=== PATIENT | male | born 1935 | race Caucasian/White ===

== ENCOUNTER → 2016-12-27 | Outpatient (CLI) | payer BC ==
[~2016-12-27] MED LIST: ALBINS INH; ALBU0.08 INH; ASPCH81 PO; ASPI81TA28 PO; BISO5TAB3 PO; CLOP1TAB15 PO; FLUT110A INH; IMDSR60 PO; ISOS120T5 PO; ISOS40TA5 PO; LEVO50TA6 PO; LISI-729 PO; LORA-741 PO; MRLP17X PO; NADO20TA15 PO; NTRGSL/4 UT; ROSU40TA PO; SENN8.6T7 PO; TAMS0.4C38 PO; ULT50X PO; [UNRECOGNIZED DRUG - CODE] PO
[2016-12-27 12:50] LABS: HEMATOCRIT 36.8 % (42-52); MEAN CELL VOLUME 93.2 fL (80-100); MEAN CORPUSCULAR HEMOGLOBIN 31.6 pg (25-34); MEAN PLATELET VOLUME 11.6 fL (7.4-10.4); PLATELET COUNT 181 K/uL (130-400); RED BLOOD COUNT 3.95 M/uL (4.7-6.1); WHITE BLOOD COUNT 7.37 K/uL (4.8-10.8)
[2016-12-27 12:59] LABS: ALT/SGPT 17 U/L (12-78); BLOOD UREA NITROGEN 21 mg/dl (7-18); BUN/CREATININE RATIO 15.1 (10-20); CALCIUM 8.9 mg/dl (8.5-10.1); CARBON DIOXIDE 26 mmol/L (21-32); CHLORIDE 106 mmol/L (98-107); GLUCOSE 100 mg/dl (70-99); POTASSIUM 4.1 mmol/L (3.5-5.1); SODIUM 141 mmol/L (136-145)
[2016-12-27 13:02] LABS: ALB/GLOB RATIO 0.8 (0.9-2); ALKALINE PHOSPHATASE 66 U/L (45-117); AST/SGOT 21 U/L (15-37)
== END | disposition home or self-care (01) ==
LOC: C.LABBFT 11:00
PROVIDERS: ATTEND Internal Medicine Cardiovascular Disease
DX: E78.5 Hyperlipidemia, unspecified (principal); I10 Essential (primary) hypertension; I25.10 Atherosclerotic heart disease of native coronary artery without angina pectoris; R00.1 Bradycardia, unspecified; N28.9 Disorder of kidney and ureter, unspecified

== ENCOUNTER → 2017-03-01 | Outpatient (CLI) | payer BC ==
[~2017-03-01] MED LIST changes: +FLVHFA110 INH; +ISOS60TA25 PO; +MRLP527 PO; +REGADENOSON 0.4 MG/5 ML SYR ONE; +SENN-65 PO; +ULT50 PO; +ZNTT/150 PO
--- NOTE | 2017-03-02 02:31 | MYOCARDIAL PERFUSION SCAN ---
ORDERING PHYSICIAN: Dr. Jiménez. PCP: Dr. Giordano. TIME: 19:26 p.m. PROCEDURES: 1. Myocardial perfusion study performed in multiple views/images. 2. Lexiscan pharmacologic stress ECG. INDICATIONS: 1. Chest pain. 2. CAD. 3. Prior infarct. 4. CABG. CONSENT: Informed written consent was obtained. PROCEDURAL DETAILS: For the stress portion of the study, Lexiscan 0.4 mg was intravenously administered over 10-15 seconds followed by saline flush. This was followed by 30.3 mCi of technetium-99m Cardiolite injected intravenously at 9:40 a.m. on 03/01/2017. Thirty minutes following the injection, imaging of the heart was performed in multiple projections. For the rest portion of the study 10.8 mCi of technetium-99m Cardiolite was injected intravenously at 7:30 a.m. on the same day. One hour following the injection, imaging of the heart was performed in the same projections. STRESS ECG: Baseline ECG demonstrated sinus bradycardia at 48 beats per minute. Inferolateral T-wave inversion. Incomplete right bundle-branch block. Possible lateral infarct. Inferior infarct. Lexiscan ECG demonstrated no significant ST changes. No significant pause. No arrhythmia. There was pseudonormalization of the inferolateral T-wave inversions. There was Lexiscan induced mild chest pain. Maximum heart rate was 73 beats per minute representing 51% maximum predicted heart rate. Resting blood pressure was 154/77 mmHg. This was also the maximum blood pressure. FINDINGS: Rotating raw imaging demonstrated no significant lung uptake. There was mild motion artifact in both the rest and stress imaging. Heart size appeared normal. Myocardial perfusion demonstrated a small area of mildly reduced uptake at the apex which was fixed without significant reversibility. There was a moderate sized area of severely reduced uptake involving the inferior and inferolateral suarez from base to distal left ventricle which was also fixed in post-stress and rest imaging. There was a small area of severely reduced uptake in the basal septal wall which was also fixed. There was no significant reversible defect. Ejection fraction was calculated at 66%. Wall motion demonstrated akinesis of the inferolateral wall otherwise, wall motion appeared normal. There was no significant transient ischemic dilation. IMPRESSION: 1. Negative myocardial perfusion study for significant ischemia. 2. Moderate sized inferior and inferolateral infarct with possible small apical infarct and small basal septal infarct. 3. Calculated ejection fraction was 66%, suggesting normal left ventricular systolic function. 4. Wall motion was notable for akinesis of the inferolateral wall. 5. Mild chest pain reported. 6. No arrhythmia. 7. Nondiagnostic Lexiscan ECG.
== END | disposition home or self-care (01) ==
LOC: C.NUCL 06:42
PROVIDERS: ATTEND Internal Medicine Cardiovascular Disease
DX: I25.10 Atherosclerotic heart disease of native coronary artery without angina pectoris (principal); E78.5 Hyperlipidemia, unspecified; I10 Essential (primary) hypertension; R07.9 Chest pain, unspecified

== ENCOUNTER → 2017-03-07 | Outpatient (CLI) | payer BC ==
[~2017-03-07] MED LIST changes: -REGADENOSON 0.4 MG/5 ML SYR ONE
[2017-03-07 17:35] LABS: HEMATOCRIT 40.5 % (42-52); MEAN CELL VOLUME 95.5 fL (80-100); MEAN CORPUSCULAR HEMOGLOBIN 31.6 pg (25-34); MEAN CORPUSCULAR HGB CONC 33.1 g/dl (32-36); MEAN PLATELET VOLUME 11.8 fL (7.4-10.4); PLATELET COUNT 185 K/uL (130-400); RED BLOOD COUNT 4.24 M/uL (4.7-6.1); WHITE BLOOD COUNT 6.07 K/uL (4.8-10.8)
[2017-03-07 17:52] LABS: ALT/SGPT 22 U/L (12-78); AST/SGOT 21 U/L (15-37); BLOOD UREA NITROGEN 21 mg/dl (7-18); BUN/CREATININE RATIO 13.9 (10-20); CALCIUM 8.6 mg/dl (8.5-10.1); CARBON DIOXIDE 28 mmol/L (21-32); CHLORIDE 108 mmol/L (98-107); CHOLESTEROL 152 mg/dl (0-200); GLUCOSE 126 mg/dl (70-99); POTASSIUM 4.7 mmol/L (3.5-5.1); SODIUM 140 mmol/L (136-145)
[2017-03-07 18:04] LABS: ALB/GLOB RATIO 0.8 (0.9-2); ALKALINE PHOSPHATASE 69 U/L (45-117); HDL CHOLESTEROL 38 mg/dl; TRIGLYCERIDES 436 mg/dl (0-150)
[2017-03-08 06:16] LABS: ESTIMATED AVERAGE GLUCOSE 140 mg/dl; HA1C FLAG Normal (Normal)
== END | disposition home or self-care (01) ==
LOC: C.LABBFT 14:36
PROVIDERS: ATTEND Internal Medicine
DX: R73.01 Impaired fasting glucose (principal); E03.9 Hypothyroidism, unspecified; I25.810 Atherosclerosis of coronary artery bypass graft(s) without angina pectoris

== ENCOUNTER → 2017-04-05 | Outpatient (CLI) | payer BC ==
[2017-04-05 12:12] LABS: BASO % 0.5 %; BASO ABS # 0.03 K/uL (0-0.2); COMPLETE YES; EOS % 4.1 %; HEMATOCRIT 41.8 % (42-52); IG% 0.2 %; LYMPH % 32.1 %; LYMPH ABS # 1.86 K/uL (1.2-3.4); MEAN CELL VOLUME 94.6 fL (80-100); MEAN CORPUSCULAR HEMOGLOBIN 30.8 pg (25-34); MEAN CORPUSCULAR HGB CONC 32.5 g/dl (32-36); MEAN PLATELET VOLUME 11.5 fL (7.4-10.4); MONO % 13.5 %; NEUT % 49.6 %; PLATELET COUNT 198 K/uL (130-400); RED BLOOD COUNT 4.42 M/uL (4.7-6.1); WHITE BLOOD COUNT 5.79 K/uL (4.8-10.8)
[2017-04-05 12:20] LABS: BLOOD UREA NITROGEN 22 mg/dl (7-18); BUN/CREATININE RATIO 12.4 (10-20); CARBON DIOXIDE 28 mmol/L (21-32); CHLORIDE 106 mmol/L (98-107); GLUCOSE 114 mg/dl (70-99); POTASSIUM 4.8 mmol/L (3.5-5.1); SODIUM 139 mmol/L (136-145)
[2017-04-05 12:24] LABS: PROSTATE SPECIFIC ANTIGEN 0.726 ng/ml (0.000-4.000)
[2017-04-05 12:27] LABS: CALCIUM 9.3 mg/dl (8.5-10.1)
--- NOTE | 2017-04-11 13:59 | CODING QUERY MEDICAL NECESSITY ---
CQSUPPORTING DIAGNOSIS NEEDED A supporting diagnosis is required for the test/procedure performed on this patient in order for us to be reimbursed by the patient's insurance. Please provide a supporting diagnosis for the following test/procedure listed below next to the test name along with your signature. *If there is no additional diagnosis for this patient that would support the following test/procedure please document that below next to the test/procedure. Test(s)/Procedure(s) that require a supporting diagnosis: DOS 04/05/17 PROSTATE SPECIFIC Provider Signature: Date: Thank you Sommer Tellez [facility] [employer] [facility] Once completed, please kindly fax back to [phone] For questions please call [phone]
== END | disposition home or self-care (01) ==
LOC: C.LABBFT 08:10
PROVIDERS: ATTEND Nurse Practitioner
DX: K62.89 Other specified diseases of anus and rectum (principal); R39.198 Other difficulties with micturition; N40.1 Benign prostatic hyperplasia with lower urinary tract symptoms

== ENCOUNTER → 2017-04-12 | Outpatient (CLI) | payer BC ==
[2017-04-12 12:40] LABS: BLOOD UREA NITROGEN 16 mg/dl (7-18); BUN/CREATININE RATIO 10.7 (10-20); CARBON DIOXIDE 26 mmol/L (21-32); CHLORIDE 104 mmol/L (98-107); GLUCOSE 91 mg/dl (70-99); POTASSIUM 4.2 mmol/L (3.5-5.1); SODIUM 139 mmol/L (136-145)
[2017-04-12 12:45] LABS: CALCIUM 8.7 mg/dl (8.5-10.1)
== END | disposition home or self-care (01) ==
LOC: C.LABBFT 10:18
PROVIDERS: ATTEND Physician Assistant Medical
DX: N17.9 Acute kidney failure, unspecified (principal)

== ENCOUNTER → 2017-04-14 | Outpatient (CLI) | payer BC ==
--- NOTE | 2017-04-14 11:42 | DIAGNOSTIC IMAGING REPORT ---
CT ABD/PELVIS ORAL CONT ONLY CT DOSE: 332.69 mGycm CLINICAL HISTORY: Rectal pain. TECHNIQUE: Axial images of the abdomen and pelvis were obtained without IV contrast. Oral contrast was administered. COMPARISON STUDY: KUB November 07, 2015. FINDINGS: Bilateral gynecomastia is noted. There is mild cardiomegaly and mild dilatation of visualized portions of the ascending aorta which measures 4 cm. Calcified right middle lobe nodules are benign. No pneumatosis, free air or portal venous gas is present. Evaluation of the abdomen and pelvis is suboptimal on this unenhanced exam. Unenhanced images of the liver, spleen, adrenal glands, kidneys and pancreas are unremarkable. There are no urinary calculi. There is no hydronephrosis. There is a diverticulum of the second portion of the duodenum. No enlarged abdominal or pelvic lymph nodes are present. There is extensive sigmoid diverticulosis without evidence for acute diverticulitis. Multiple bladder diverticula measure up to 4.5 cm. Chronic deformity of T12 with marked loss of vertebral body height is noted. There is no fluid collection to suggest abscess. The appendix is not visualized. IMPRESSION: 1. No acute process within the abdomen or pelvis. 2. Extensive sigmoid diverticulosis without evidence for acute diverticulitis. 3. Multiple bladder diverticula. No hydronephrosis. Electronically signed by: Daljit Conner M.D. 04/14/2017 11:41 AM Dictated Date/Time: 04/14/2017 11:22 AM
== END | disposition home or self-care (01) ==
LOC: C.CTS 10:42
PROVIDERS: ATTEND Nurse Practitioner
DX: K62.89 Other specified diseases of anus and rectum (principal); K57.30 Diverticulosis of large intestine without perforation or abscess without bleeding; N32.3 Diverticulum of bladder

== ENCOUNTER → 2017-04-17 | Outpatient (CLI) | payer BC ==
--- NOTE | 2017-04-17 12:39 | DIAGNOSTIC IMAGING REPORT ---
RIGHT HIP UNILATERAL 2 VIEWS CLINICAL HISTORY: Right hip pain COMPARISON: 03/25/2016 DISCUSSION: No fractures or dislocations are visualized. There are moderate vascular calcifications present. There are no erosive or destructive changes. The joint space appears well-preserved for age. There is subtle chondrocalcinosis. IMPRESSION: Subtle chondrocalcinosis. No fractures identified. No evidence of significant joint space narrowing. Electronically signed by: Ja Ayala M.D. 04/17/2017 12:38 PM Dictated Date/Time: 04/17/2017 12:37 PM
== END | disposition home or self-care (01) ==
LOC: C.RAD1850 11:22
PROVIDERS: ATTEND Internal Medicine Cardiovascular Disease
DX: M79.604 Pain in right leg (principal)

== ENCOUNTER → 2017-05-19 | Day surgery (SDC) | payer BC ==
[2017-05-12 10:52] VITALS: Ht 167.6 cm; Wt 58.6 kg
[~2017-05-19] VITALS: Ht 167.6 cm; Wt 58.6 kg
[~2017-05-19] MED LIST changes: -BISO5TAB3 PO; -IMDSR60 PO; +LIDOCAINE HCL 2% 2 ML VIAL (20MG/ML) ONE; +PROPOFOL IV EMULSION 10 MG/ML 20 ML VIAL IV ONE; -[UNRECOGNIZED DRUG - CODE] PO
[2017-05-19 12:56] VITALS: TEMP 36
--- NOTE | 2017-05-19 13:59 | Endo History and Physical ---
History & Physical Date of Service: May 19, 2017. Chief Complaint: rectal pain Referring Physician: Dr.Dennis Giordano History of Present Illness For colonoscopy Past Medical History Angioplasty/Stent, CABG, Hypertension, COPD, [place] Past Surgical History Hx Cardiac Surgery: Yes (CARDIAC CATH X 3? LAST ONE 2014-11 STENT/TOTAL 3-4 STENTS, TRIPLE CABG) Hx Internal Defibrillator: No Hx Pacemaker: No Hx Abdominal Surgery: Yes (APPENDECTOMY) Hx of Implantable Prosthesis: No Hx Post-Op Nausea and Vomiting: No Hx Cancer Surgery: No Hx Thoracic Surgery: No Hx Orthopedic: No Hx Urinary Tract Surgery: Yes (TURP) Family History None Social History Smoking Status: Former Smoker Hx Substance Use: No Hx Alcohol Use: No Allergies Coded Allergies: No Known Allergies (Verified , 05/19/17) Current Medications Reported Home Medications Medications Dose Route/Sig Max Daily Dose Days Date Category Dose Instructions Flomax (Tamsulosin Hcl) 0.4 Mg Cap 0.4 Mg PO QPM 05/12/17 Reported Isordil Ext Rel (Isosorbide Dinitrate) 40 Mg Tabcr 40 Mg PO QAM 05/12/17 Reported Plavix (Clopidogrel Bisulfate) 75 Mg Tab 75 Mg PO QAM 05/12/17 Reported Crestor (Rosuvastatin Calcium) 40 Mg Tab 40 Mg PO HS 11/05/15 Reported Zestril (Lisinopril) 5 Mg Tab 5 Mg PO QAM 11/05/15 Reported Corgard (Nadolol) 20 Mg Tab 30 Mg PO QAM 08/16/14 Reported Take one and a half of a 20mg tablet Ativan (Lorazepam) 0.5 Mg Tab 0.5 Mg PO DAILY PRN 08/16/14 Reported Flovent Hfa 110MCG Inhaler (Fluticasone Propionate Hfa) 110 Mcg/ Aer 1 Puff INH BID PRN 08/16/14 Reported Aspirin Ec (Aspirin) 81 Mg Tab 81 Mg PO QAM 08/16/14 Reported Levothyroxine Sodium 50 Mcg Tab 50 Mcg PO QAM 08/16/14 Reported Proventil 0.083% 2.5MG/3ML (Albuterol Sulfate) Nebu 2.5 Mg INH QID PRN 08/16/14 Reported Nitrostat (Nitroglycerin) 0.4 Mg Tab 0.4 Mg [place] UD PRN 08/30/11 Reported NEEDED FOR CHEST PAIN : PLACE ONE TABLET UNDER THE TONGUE EVERY 5 MINUTES FOR UP TO 3 DOSES. Vital Signs Weight (Kilograms): 58.64 Height (Feet): 5 Height (Inches): 6 Date Time Temp Pulse Resp B/P (MAP) Pulse Ox O2 Delivery O2 Flow Rate FiO2 05/19/17 12:56 36 57 20 109/82 (91) 95 Room Air Physical Exam General Appearance: + thin Respiratory/Chest: Respiratory effort: no dyspnea Cardiovascular: Heart Auscultation: RRR Abdomen: Inspection & Palpation: soft Assessment and Plan rectal pain for colonoscopy
--- NOTE | 2017-05-19 14:15 | Discharge Instructions ---
Endoscopy Patient Instructions Date / Procedure(s) Performed May 19, 2017. Colonoscopy Allergy Information Coded Allergies: No Known Allergies (Verified , 05/19/17) Discharge Date / Findings May 19, 2017. Hemorrhoids, diverticulosis Medication Instructions Stopped Medication(s): stopped Plavix yesterday,took ASA today Restart Stopped Medication(s): resume meds Reported Home Medications Medications Dose Route/Sig Max Daily Dose Days Date Category Dose Instructions Flomax (Tamsulosin Hcl) 0.4 Mg Cap 0.4 Mg PO QPM 05/12/17 Reported Isordil Ext Rel (Isosorbide Dinitrate) 40 Mg Tabcr 40 Mg PO QAM 05/12/17 Reported Plavix (Clopidogrel Bisulfate) 75 Mg Tab 75 Mg PO QAM 05/12/17 Reported Crestor (Rosuvastatin Calcium) 40 Mg Tab 40 Mg PO HS 11/05/15 Reported Zestril (Lisinopril) 5 Mg Tab 5 Mg PO QAM 11/05/15 Reported Corgard (Nadolol) 20 Mg Tab 30 Mg PO QAM 08/16/14 Reported Take one and a half of a 20mg tablet Ativan (Lorazepam) 0.5 Mg Tab 0.5 Mg PO DAILY PRN 08/16/14 Reported Flovent Hfa 110MCG Inhaler (Fluticasone Propionate Hfa) 110 Mcg/ Aer 1 Puff INH BID PRN 08/16/14 Reported Aspirin Ec (Aspirin) 81 Mg Tab 81 Mg PO QAM 08/16/14 Reported Levothyroxine Sodium 50 Mcg Tab 50 Mcg PO QAM 08/16/14 Reported Proventil 0.083% 2.5MG/3ML (Albuterol Sulfate) Nebu 2.5 Mg INH QID PRN 08/16/14 Reported Nitrostat (Nitroglycerin) 0.4 Mg Tab 0.4 Mg [place] UD PRN 08/30/11 Reported NEEDED FOR CHEST PAIN : PLACE ONE TABLET UNDER THE TONGUE EVERY 5 MINUTES FOR UP TO 3 DOSES. Provider Instructions Activity Restrictions - No exercising or heavy lifting for 24 hours. - Do not drink alcohol the day of the procedure. - Do not drive a car or operate machinery until the day after the procedure. - Do not make any important decisions or sign important papers in 24 hours after the procedure. Following Day: - Return to full activity which may include returning to work/school. Diet Start your diet with liquids and light foods (jello, soup, juice, toast). Then eat your usual diet if not nauseated. Treatment For Common After Affects For mild abdominal pain, bloating, or excessive gas: - Rest - Eat lightly - Lie on right side Follow-Up Information Follow-up with as scheduled Anesthesia Information What You Should Know You have had a procedure that required some medicine to reduce anxiety and discomfort. This treatment is called moderate sedation. After receiving the treatment, you may be sleepy, but you will be able to breathe on your own. The effects of the treatment may last for several hours. Follow these instructions along with Activity/Diet recommendations noted above: * Do NOT do anything where dizziness or clumsiness would be dangerous. * Rest quietly at home today, then you can be up and about tomorrow. * Have a responsible person stay with you the rest of today. * You may have had an I.V. today. If so, you may take the dressing off later today. Recommendations Call your doctor if: * Trouble breathing * Continuous vomiting for more than 24 hours * Temperature above 101 degrees * Severe abdominal pain or bloating * Pain not relieved by pain medicine ordered * There is increased drainage or redness from any incision * A large amount of rectal bleeding greater than 2-3 tablespoons. (If you had a polyp/s removed or have hemorrhoids, a small amount of blood - from the rectum is to be expected.) * You have any unanswered questions or concerns. IN THE EVENT OF A SERIOUS EMERGENCY, GO TO THE NEAREST EMERGENCY ROOM Your discharge instructions were prepared by provider Caesar Dove. Patient Instructions Signature Page Hal Dailey Patient (or Guardian) Signature/Date: I have read and understand the instructions given to me by my caregivers. Caregiver/RN/Doctor Signature/Date: The above-named patient and/or guardian has received patient instructions on this date. + Original Patient Signature Page (only) stays with chart. Please make copy for patient.
--- NOTE | 2017-05-19 14:18 | GI REPORT ---
Procedure Date: 05/19/2017 1:43 PM Procedure: Colonoscopy Indications: Rectal pain Medicines: Propofol total dose 140 mg IV, Lidocaine 40 mg IV Complications: No immediate complications. Estimated Blood Loss: Estimated blood loss: none. Procedure: Pre-Anesthesia Assessment: - Prior to the procedure, a History and Physical was performed, and patient medications, allergies and sensitivities were reviewed. The patient's tolerance of previous anesthesia was reviewed. - The risks and benefits of the procedure and the sedation options and risks were discussed with the patient. All questions were answered and informed consent was obtained. After I obtained informed consent, the scope was passed under direct vision. Throughout the procedure, the patient's blood pressure, pulse, and oxygen saturations were monitored continuously. The Scope was introduced through the anus and advanced to the cecum, identified by appendiceal orifice and ileocecal valve. The colonoscopy was performed without difficulty. The patient tolerated the procedure well. The quality of the bowel preparation was excellent. Findings: Non-bleeding internal hemorrhoids were found during perianal exam. The hemorrhoids were moderate. A few diverticula were found in the sigmoid colon. Impression: - Non-bleeding internal hemorrhoids. - Diverticulosis in the sigmoid colon. - No specimens collected. Recommendation: - Discharge patient to home (ambulatory). - Continue present medications. - Return to primary care physician PRN. Caesar Dove M.D. Caesar Dove MD 05/19/2017 2:17:53 PM This report has been signed electronically. Note Initiated On: 05/19/2017 1:43 PM I attest to the content of the Intraoperative Record and orders documented therein, exceptions below
--- NOTE | 2017-05-19 14:43 | Anesthesiology Progress Note ---
Anesthesia Post Op Note Date & Time May 19, 2017 at 14:43 Vital Signs Pain Intensity: 0 Vital Signs Past 12 Hours Date Time Temp Pulse Resp B/P (MAP) Pulse Ox O2 Delivery O2 Flow Rate FiO2 05/19/17 14:34 76 18 119/63 (81) 93 Room Air 05/19/17 14:19 56 12 84/46 (59) 96 Room Air 05/19/17 12:56 36 57 20 109/82 (91) 95 Room Air Notes Mental Status: alert / awake / arousable, participated in evaluation Pt Amnestic to Procedure: Yes Nausea / Vomiting: adequately controlled Pain: adequately controlled Airway Patency, RR, SpO2: stable & adequate BP & HR: stable & adequate Hydration State: stable & adequate Anesthetic Complications: no major complications apparent
[2017-05-19 14:50] VITALS: BP 108/60; PULSE 50; O2SAT 96
== END | disposition home or self-care (01) ==
LOC: C.GI 12:15
PROVIDERS: ATTEND Internal Medicine Gastroenterology
DX: K62.89 Other specified diseases of anus and rectum (principal); Z98.62 Peripheral vascular angioplasty status; K64.8 Other hemorrhoids; I10 Essential (primary) hypertension; J44.9 Chronic obstructive pulmonary disease, unspecified; K57.30 Diverticulosis of large intestine without perforation or abscess without bleeding; I25.2 Old myocardial infarction; Z95.1 Presence of aortocoronary bypass graft; Z90.49 Acquired absence of other specified parts of digestive tract; Z87.891 Personal history of nicotine dependence; Z79.82 Long term (current) use of aspirin

== ENCOUNTER 2017-07-10 16:27 | Inpatient (IN) | payer BC, OTHER ==
[~2017-07-10] VITALS: Ht 165.1 cm; Wt 57.0 kg
[~2017-07-10 16:27] MED LIST changes: -ALBINS INH; -ASPCH81 PO; -FLVHFA110 INH; -ISOS120T5 PO; -ISOS60TA25 PO; -LIDOCAINE HCL 2% 2 ML VIAL (20MG/ML) ONE; -MRLP17X PO; -MRLP527 PO; -PROPOFOL IV EMULSION 10 MG/ML 20 ML VIAL IV ONE; -SENN-65 PO; -SENN8.6T7 PO; -ULT50 PO; -ULT50X PO; -ZNTT/150 PO
[2017-07-10] MEDS ORDERED: MoRPHine SULFATE 4 MG/ML 1 ML CARP\\VIAL IM STA (17:50)
[2017-07-10] MEDS ORDERED: ONDANSETRON 4MG OD TAB PO ONE (18:00)
--- NOTE | 2017-07-10 19:15 | DIAGNOSTIC IMAGING REPORT ---
RIGHT PELVIS/UNILATERAL HIP 2-3VIEWS HISTORY: 81 years-old Male acute right-sided hip pain with fall. COMPARISON: Right hip radiographs 04/17/2017 TECHNIQUE: AP view of the pelvis with 2 views of the right at FINDINGS: The pelvic ring is intact. Moderate severe osteoarthritis involves the left hip. Degenerative changes are seen within the lower lumbar spine. Vascular calcifications are noted. There is an acute nondisplaced and non-angulated transcervical fracture of the right proximal femur which appears comminuted. There is background moderate right hip osteoarthritis. IMPRESSION: 1. Acute nondisplaced and non-angulated transcervical fracture of the right femur. 2. Moderate to severe left and moderate right hip osteoarthritis. The above report was generated using voice recognition software. It may contain grammatical, syntax or spelling errors. Electronically signed by: Yunior López M.D. 07/10/2017 7:13 PM Dictated Date/Time: 07/10/2017 6:59 PM
--- NOTE | 2017-07-10 19:23 | EMERGENCY ROOM VISIT NOTE ---
History First contact with patient: 16:47 Chief Complaint: FALL Stated Complaint: FELL,RT LEG PAIN History of Present Illness Patient is a 81-year-old white male who presents emergency department accompanied by his significant other for evaluation of right hip pain after a fall 5 hours ago. He was clearing out some yard waste from the back of his truck, he jumped out of the bed of the truck and fell, landing on the right side. He had immediate onset of pain in the right hip. He also struck his right elbow and shoulder. He did not strike his head or lose consciousness, he has complete recollection of the incident. He was unable to get up on his own, the patient's significant other was able to slide down some bystanders who were able to help get the patient up and into the truck. When they got home, they put him on a motorized scooter to get into the house. He has been unable to put any weight on the right leg due to pain. He applied Icy Hot to the right hip area, but did not take any medication for pain. He rates his discomfort a 5 /10 presently. He is located in the posterior lateral aspect of the right hip, radiating to the right groin and down the right thigh, and is worse with any attempts at movement of the hip. He denies any numbness or tingling in the right lower extremity. He notes an abrasion to the right elbow, and some right shoulder pain, but has been able to move it. He reports that the fall was purely mechanical in nature, denies that there is any associated chest pain, shortness of breath, lightheadedness, dizziness or palpitations prior to the fall. Review of Systems Review of systems as per HPI. All other systems reviewed were negative. 10 systems reviewed. Past Medical/Surgical History Medical Problems: (1) Acute coronary syndrome (2) Ambulatory dysfunction (3) Anxiety Disorder, Unspecified (4) Asthma, Unspecified (5) CAD (coronary artery disease) (6) Chest pain (7) Cough (8) Cough (9) Dehydration (10) Diabetes (11) Dizziness (12) Dyspnea (13) Dyspnea (14) Emphysema, Unspecified (15) Heart disease (16) Hyperlipidemia, Unspecified (17) Hypertension Nos (18) Hypertensive Chronic Kidney Disease W Stg 1-4/Unsp Chr Kdny (19) Hypothyroidism, Unspecified (20) Influenza (21) Intractable vomiting (22) Non-STEMI (non-ST elevated myocardial infarction) (23) NSTEMI, initial episode of care Surgical Problems: (1) H/O heart bypass surgery (2) Percutaneous Translum Coron Angioplasty Status Electronic medical records are reviewed and summarized as above/below. See Problem List. Family History No pertinent family history Social History Smoking Status: Former Smoker Marital Status: in relationship Housing Status: lives with significant other Occupation Status: retired Current/Historical Medications Scheduled Aspirin (Aspirin Ec), 81 MG PO QAM Clopidogrel (Plavix), 75 MG PO QAM Isosorbide Dinitrate Ext Rel (Isordil Ext Rel), 40 MG PO QAM Isosorbide Mononitrate Ext Rel (Imdur Ext Rel), 240 MG PO QAM Levothyroxine Sodium (Levothyroxine Sodium), 50 MCG PO QAM Lisinopril (Zestril), 5 MG PO QAM Nadolol (Corgard), 30 MG PO QAM Rosuvastatin Calcium (Crestor), 40 MG PO HS Tamsulosin Hcl (Flomax), 0.4 MG PO QPM Scheduled PRN Albuterol Soln (Proventil 0.083% 2.5MG/3ML), 2.5 MG INH QID PRN for Shortness of Breath Albuterol Sulf (Albuterol Sulfate), 3 ML INH TID PRN for SOB/Wheezing Fluticasone Propionate Hfa (Flovent Hfa 110MCG Inhaler), 1 PUFF INH BID PRN for PRN Lorazepam (Ativan), 0.5 MG PO DAILY PRN for Anxiety Nitroglycerin (Nitrostat), 0.4 MG UT UD PRN for Chest Pain Physical Exam Vital Signs Date Time Temp Pulse Resp B/P (MAP) Pulse Ox O2 Delivery O2 Flow Rate FiO2 07/10/17 19:50 65 16 142/77 92 Room Air 07/10/17 18:13 56 22 122/72 93 Room Air 07/10/17 16:40 36.4 52 16 159/78 94 Room Air Physical Exam GENERAL: Patient is a pleasant, well-appearing 81-year-old white male who is awake and alert and in no acute distress sitting semiupright on the gurney. He has his right hip and knee flexed, resting on for a blanket. HEENT: Head - normocephalic and atraumatic. Pupils are equal, round, and reactive to light. Extraocular eye muscles are intact and sclera are anicteric. Ears - bilaterally patent canals with no evidence of hemotympanum. Mouth - moist buccal mucosa with no trauma to the teeth or signs of malocclusion. Neck: The neck is supple and there is no pain to palpation over the posterior cervical spine and no obvious step-offs or deformities. There is no JVD or tracheal deviation. Chest: There are no signs of deformities, contusions or abrasions to the chest wall. There is no obvious crepitus or paradoxical chest rise. Heart: Regular rate, and regular rhythm. Lungs: Breath sounds equal and clear to auscultation . Abdomen: Well-healed surgical scars. Soft, completely nontender, nondistended, with good bowel sounds. There is no sign of trauma such as contusions, abrasions or penetrations. There are no palpable pulsatile masses or hepatosplenomegaly. There is no guarding, rigidity, or rebound noted. Extremities: Examination of the right hip does not demonstrate any obvious outward signs of trauma, no obvious deformity. He has the hip and knee flexed, with a knee propped up on a couple of blankets. He is tender to palpation over the left greater trochanter and the left groin area. Leg is shortened and externally rotated. Hip range of motion is not assessed due to the nature of the injury. Knee is nontender. The right lower extremity is neurovascularly intact. Examination of the right shoulder does not demonstrate any obvious ecchymosis, abrasions or trauma. Shoulder is nontender and age of motion is full. He has a superficial skin tear noted over the right elbow. Neuro: The patient is awake and alert and easily able to follow commands. Muscle strength is 5 out of 5 in extremities x 3 (RLE not assessed. Otherwise, neuro exam is unremarkable. Back: The entire thoracic, lumbar, and sacral spine were palpated. No discomfort over the thoracic spine and lumbar spine. There are no obvious step- offs or deformities noted. There are no obvious signs of trauma such as contusions abrasions penetrations noted to the back. Medical Decision & Procedures ER Provider Diagnostic Interpretation: RIGHT PELVIS/UNILATERAL HIP 2-3VIEWS HISTORY: 81 years-old Male acute right-sided hip pain with fall. COMPARISON: Right hip radiographs 04/17/2017 TECHNIQUE: AP view of the pelvis with 2 views of the right at FINDINGS: The pelvic ring is intact. Moderate severe osteoarthritis involves the left hip. Degenerative changes are seen within the lower lumbar spine. Vascular calcifications are noted. There is an acute nondisplaced and non-angulated transcervical fracture of the right proximal femur which appears comminuted. There is background moderate right hip osteoarthritis. IMPRESSION: 1. Acute nondisplaced and non-angulated transcervical fracture of the right femur. 2. Moderate to severe left and moderate right hip osteoarthritis. Laboratory Results 07/10/17 19:28 Red Blood Count 4.16, Mean Corpuscular Volume 92.1, Mean Corpuscular Hemoglobin 31.0, Mean Corpuscular Hemoglobin Concent 33.7, Mean Platelet Volume 11.4, Neutrophils (%) (Auto) 76.5, Lymphocytes (%) (Auto) 14.2, Monocytes (%) (Auto) 7.7, Eosinophils (%) (Auto) 1.3, Basophils (%) (Auto) 0.2, Neutrophils # (Auto) 6.34, Lymphocytes # (Auto) 1.18, Monocytes # (Auto) 0.64, Eosinophils # (Auto) 0.11, Basophils # (Auto) 0.02 07/10/17 19:28 Test 07/10/17 19:28 White Blood Count 8.30 K/uL (4.8-10.8) Red Blood Count 4.16 M/uL (4.7-6.1) Hemoglobin 12.9 g/dL (14.0-18.0) Hematocrit 38.3 % (42-52) Mean Corpuscular Volume 92.1 fL (80-100) Mean Corpuscular Hemoglobin 31.0 pg (25-34) Mean Corpuscular Hemoglobin Concent 33.7 g/dl (32-36) Platelet Count 148 K/uL (130-400) Mean Platelet Volume 11.4 fL (7.4-10.4) Neutrophils (%) (Auto) 76.5 % Lymphocytes (%) (Auto) 14.2 % Monocytes (%) (Auto) 7.7 % Eosinophils (%) (Auto) 1.3 % Basophils (%) (Auto) 0.2 % Neutrophils # (Auto) 6.34 K/uL (1.4-6.5) Lymphocytes # (Auto) 1.18 K/uL (1.2-3.4) Monocytes # (Auto) 0.64 K/uL (0.11-0.59) Eosinophils # (Auto) 0.11 K/uL (0-0.5) Basophils # (Auto) 0.02 K/uL (0-0.2) RDW Standard Deviation 50.9 fL (36.4-46.3) RDW Coefficient of Variation 15.1 % (11.5-14.5) Immature Granulocyte % (Auto) 0.1 % Immature Granulocyte # (Auto) 0.01 K/uL (0.00-0.02) Prothrombin Time 11.4 SECONDS (9.0-12.0) Prothromb Time International Ratio 1.1 (0.9-1.1) Activated Partial Thromboplast Time 28.0 SECONDS (21.0-31.0) Partial Thromboplastin Ratio 1.1 Anion Gap 8.0 mmol/L (3-11) Est Creatinine Clear Calc Drug Dose 30.2 ml/min Estimated GFR () 46.8 Estimated GFR (Non- 40.4 BUN/Creatinine Ratio 12.7 (10-20) Calcium Level 8.7 mg/dl (8.5-10.1) Medications Administered Medications (Trade) Dose Ordered Sig/Eboni Route Start Time Stop Time Status Last Admin Dose Admin Morphine Sulfate (MoRPHine SULFATE INJ) 4 mg NOW STAT IM 07/10/17 17:50 07/10/17 17:51 DC 07/10/17 18:11 4 MG Ondansetron HCl (Zofran Odt) 4 mg ONE ONCE PO 07/10/17 18:00 07/10/17 18:01 DC 07/10/17 18:09 4 MG ED Course The patient was seen and evaluated as above. His old records were reviewed. He initially declined medication for discomfort, later did request something for pain prior to x-ray, which did delay obtaining his hip x-rays. He was given morphine 4 mg IM and Zofran 4 mg ODT. Findings are as noted above. X- ray findings were discussed with the patient and his significant other. Geriatric Hip Fracture orders were placed. Patient was reviewed with the [facility] hospitalist service for further care and management. Medical Decision Patient is a 81-year-old white male who presents to the emergency department for evaluation of right hip pain and inability to ambulate after a mechanical fall earlier today. He was found to have a right hip fracture. He will be admitted for medical clearance and surgical intervention. History is not consistent with ACS, arrhythmia, seizure or syncope. Differential diagnoses included hip fracture, pelvic fracture, hip dislocation, among others. Medication Reconcilliation Current Medication List: was personally reviewed by me Blood Pressure Screening Patient's blood pressure: Elevated blood pressure Blood pressure disposition: Elevated BP felt to be situational Impression Primary Impression: Fracture of right hip Departure Information Referrals Jaquan Giordano M.D. (PCP) Patient Instructions My [facility] Problem Qualifiers Primary Impression: Fracture of right hip Encounter type: initial encounter Fracture type: closed Qualified Codes: S72.001A - Fracture of unspecified part of neck of right femur, initial encounter for closed fracture
--- NOTE | 2017-07-10 19:26 | DIAGNOSTIC IMAGING REPORT ---
CHEST ONE VIEW PORTABLE HISTORY: 81 years-old Male preoperative exam. Right hip fracture. COMPARISON: Chest radiographs 01/23/2016 TECHNIQUE: Portable supine AP view of the chest FINDINGS: Cardiac silhouette is within normal limits. Prior median sternotomy with surgical clips projecting along the left mediastinal margin. There is atherosclerosis of the aorta. There is no pneumothorax, pleural effusion or focal airspace consolidation. The bones about the chest are grossly intact with advanced degenerative changes of the right shoulder. IMPRESSION: No acute cardiopulmonary process. The above report was generated using voice recognition software. It may contain grammatical, syntax or spelling errors. Electronically signed by: Yunior López M.D. 07/10/2017 7:25 PM Dictated Date/Time: 07/10/2017 7:24 PM
--- NOTE | 2017-07-10 19:34 | EMERGENCY ROOM VISIT NOTE ---
ED Visit Note First contact with patient: 16:47 Staff note: I have reviewed the Patients chart and have discussed this case with my PA. I generally agree with the ED note and findings.
[2017-07-10 19:40] LABS: BASO % 0.2 %; BASO ABS # 0.02 K/uL (0-0.2); COMPLETE YES; EOS % 1.3 %; HEMATOCRIT 38.3 % (42-52); IG% 0.1 %; LYMPH % 14.2 %; LYMPH ABS # 1.18 K/uL (1.2-3.4); MEAN CELL VOLUME 92.1 fL (80-100); MEAN CORPUSCULAR HGB CONC 33.7 g/dl (32-36); MEAN PLATELET VOLUME 11.4 fL (7.4-10.4); MONO % 7.7 %; NEUT % 76.5 %; PLATELET COUNT 148 K/uL (130-400); RED BLOOD COUNT 4.16 M/uL (4.7-6.1)
[2017-07-10] MEDS ORDERED: MAGNESIUM HYDROXIDE SUSP 30 ML UDC PO PRN (19:45)
[2017-07-10] MEDS ORDERED: SOD PHOSPHATE/SOD BIPHOSPHATE ENEMA 132 ML BTL PR PRN (19:45)
[2017-07-10] MEDS ORDERED: POLYETHYLENE (MIRALAX) 17 GM PACK PO PRN (19:45)
[2017-07-10] MEDS ORDERED: OXYCODONE HCL IR 5 MG TAB (IMMEDIATE RELEASE) PO PRN (19:45)
[2017-07-10] MEDS ORDERED: ACETAMINOPHEN 325 MG TAB PO PRN (19:45)
[2017-07-10] MEDS ORDERED: MoRPHine SULFATE 4 MG/ML 1 ML CARP\\VIAL IV PRN (19:45)
[2017-07-10] MEDS ORDERED: BISACODYL 10 MG SUPP PR PRN (19:45)
[2017-07-10] MEDS ORDERED: ALBUTEROL 0.083% NEBU SOLN 3 ML VIAL INH PRN (19:45)
[2017-07-10] MEDS ORDERED: ONDANSETRON INJ 2 MG/ML 2 ML VIAL IV PRN (19:45)
[2017-07-10] MEDS ORDERED: NALOXONE HCL 0.4 MG/1 ML VIAL/CARP IV PRN (19:45)
[2017-07-10] MEDS ORDERED: NITROGLYCERIN 0.4 MG SL PER TAB CHARGE UT PRN (19:45)
[2017-07-10 19:51] LABS: INR 1.1 (0.9-1.1); PARTIAL THROMBOPLASTIN RATIO 1.1; PROTHROMBIN TIME (PATIENT) 11.4 SECONDS (9.0-12.0)
[2017-07-10 19:59] LABS: BUN/CREATININE RATIO 12.7 (10-20); CALCIUM 8.7 mg/dl (8.5-10.1); CREATININE 1.6 mg/dl (0.60-1.40); POTASSIUM 3.8 mmol/L (3.5-5.1)
[2017-07-10] MEDS ORDERED: ALBINS INH (20:02)
[2017-07-10] MEDS ORDERED: ISOS120T5 PO (20:04)
--- NOTE | 2017-07-10 20:04 | History and Physical ---
History & Physical Date & Time of Service: Jul 10, 2017 at 19:42 Chief Complaint: Fell,Rt Leg Pain Primary Care Physician: Jaquan Giordano M.D. History of Present Illness Source: patient, spouse 81 y/o M Hx severe CAD, CKD 3, HTN, COPD, BPH, hypothyroid. Pt hopped out of his truck bed today, landing on his R leg and sustaining an acute R femoral fracture. The pt denies symptoms aside form pain at the fracture site. He denies CP, SOB, N/V, dysuria. Past Medical/Surgical History Medical Problems: (1) Hypothyroidism, Unspecified (2) Ambulatory dysfunction Status: Resolved (3) Anxiety Disorder, Unspecified Status: Chronic (4) Asthma, Unspecified Status: Chronic (5) CAD (coronary artery disease) - cath results 12/29 POWELL-LAD patent. After anastamosis, supplies LAD and backfills to a diagonal. There is stenosis at the LAD/Diagonal bifurcation, however, this would be a difficult intervention to intervene through the [id number] with relatively small iliamna coronary arteries. SVG-OM: proximal stent patent. Older stent with 30% in-stent restenosis similar to prior. Mid vessel stent with subtotal occlusion. SVG-OM goes on to fill the OM and LCx. Other iliamna arteries not visualized as known to be occluded. SVG-RCA known to be occluded. ZO placed in SVG (6) Non-STEMI (non-ST elevated myocardial infarction) (7) Diabetes Status: Chronic (8) Emphysema, Unspecified Status: Chronic (9) Hyperlipidemia, Unspecified Status: Chronic (10) Hypertension Nos Status: Chronic (11) CKD Surgical Problems: (1) H/O heart bypass surgery Status: Resolved (2) Percutaneous Translum Coron Angioplasty Status Status: Resolved Family History No pertinent family history Noncontributory Social History Distant smoking histroy, does not drink, lives with - retired singleton Smoking Status: Former Smoker Marital Status: in relationship Housing status: lives with significant other Occupational Status: retired Immunizations History of Influenza Vaccine: Unknown Influenza Vaccine Date: Sep 08, 2007 History of Tetanus Vaccine?: Unknown History of Pneumococcal: Unknown Pneumococcal Date: Aug 13, 2007 History of Hepatitis B Vaccine: Unknown Multi-Drug Resistant Organisms History of MDRO: No Allergies Coded Allergies: No Known Allergies (Verified , 07/10/17) Home Medications Scheduled Aspirin (Aspirin Ec), 81 MG PO QAM Clopidogrel (Plavix), 75 MG PO QAM Isosorbide Dinitrate Ext Rel (Isordil Ext Rel), 40 MG PO QAM Isosorbide Mononitrate Ext Rel (Imdur Ext Rel), 240 MG PO QAM Levothyroxine Sodium (Levothyroxine Sodium), 50 MCG PO QAM Lisinopril (Zestril), 5 MG PO QAM Nadolol (Corgard), 30 MG PO QAM Rosuvastatin Calcium (Crestor), 40 MG PO HS Tamsulosin Hcl (Flomax), 0.4 MG PO QPM Scheduled PRN Albuterol Soln (Proventil 0.083% 2.5MG/3ML), 2.5 MG INH QID PRN for Shortness of Breath Albuterol Sulf (Albuterol Sulfate), 3 ML INH TID PRN for SOB/Wheezing Fluticasone Propionate Hfa (Flovent Hfa 110MCG Inhaler), 1 PUFF INH BID PRN for PRN Lorazepam (Ativan), 0.5 MG PO DAILY PRN for Anxiety Nitroglycerin (Nitrostat), 0.4 MG UT UD PRN for Chest Pain Review of Systems Constitutional: No fever, No chills, No sweats Eyes: No worsening of vision ENT: No hearing loss, No unusual epistaxis, No nasal symptoms Respiratory: No cough, No sputum, No wheezing Cardiovascular: No chest pain, No orthopnea, No PND Abdomen: No pain, No nausea, No vomiting Musculoskeletal: + joint pain, + muscle pain (R hip/leg as above) Genitourinary - Male: No hematuria, No dysuria, No urinary frequency Neurologic: No memory loss, No paralysis Psychiatric: No depression symptoms Endocrine: No fatigue Hematologic / Lymphatic: No abnormal bleeding/bruising Integumentary: No rash Allergic / Immunologic: No environmental allergies Physical Exam Vital Signs Date Time Temp Pulse Resp B/P (MAP) Pulse Ox O2 Delivery O2 Flow Rate FiO2 07/10/17 18:13 56 22 122/72 93 Room Air 07/10/17 16:40 36.4 52 16 159/78 94 Room Air General Appearance: WD/WN (Frale elderly male in no acute distress) Head: normocephalic Eyes: normal inspection ENT: normal ENT inspection, hearing grossly normal, pharynx normal Neck: supple, no JVD Respiratory/Chest: chest non-tender, lungs clear Cardiovascular: regular rate, rhythm, no edema Abdomen/GI: normal bowel sounds, non tender, soft Back: normal inspection, no CVA tenderness Extremities/Musculoskelatal: + pertinent finding (Pain to palpation of the RLE - no rotation is present - pulses are palpable) Neurologic/Psych: dough braker II-XII nml as tested, no motor/sensory deficits, alert, + pertinent finding (Pt was slow to answer however he is oriented x 3 ) Skin: normal color, warm/dry, no rash Diagnostics Laboratory Results Results Past 24 Hours Test 07/10/17 19:28 Range/Units White Blood Count 8.30 4.8-10.8 K/uL Red Blood Count 4.16 4.7-6.1 M/uL Hemoglobin 12.9 14.0-18.0 g/dL Hematocrit 38.3 42-52 % Mean Corpuscular Volume 92.1 80-100 fL Mean Corpuscular Hemoglobin 31.0 25-34 pg Mean Corpuscular Hemoglobin Concent 33.7 32-36 g/dl Platelet Count 148 130-400 K/uL Mean Platelet Volume 11.4 7.4-10.4 fL Neutrophils (%) (Auto) 76.5 % Lymphocytes (%) (Auto) 14.2 % Monocytes (%) (Auto) 7.7 % Eosinophils (%) (Auto) 1.3 % Basophils (%) (Auto) 0.2 % Neutrophils # (Auto) 6.34 1.4-6.5 K/uL Lymphocytes # (Auto) 1.18 1.2-3.4 K/uL Monocytes # (Auto) 0.64 0.11-0.59 K/uL Eosinophils # (Auto) 0.11 0-0.5 K/uL Basophils # (Auto) 0.02 0-0.2 K/uL RDW Standard Deviation 50.9 36.4-46.3 fL RDW Coefficient of Variation 15.1 11.5-14.5 % Immature Granulocyte % (Auto) 0.1 % Immature Granulocyte # (Auto) 0.01 0.00-0.02 K/uL Diagnostic Radiology CXR 1. Acute nondisplaced and non-angulated transcervical fracture of the right femur. 2. Moderate to severe left and moderate right hip osteoarthritis. EKG Sinus , L axis - Evidence of prev inf TN - lat T wv inversions Impression Assessment and Plan 81 y/o M Hx severe CAD, CKD 3, HTN, COPD, BPH, hypothyroid. Pt hopped out of his truck bed today, landing on his R leg and sustaining an acute R femoral fracture. The pt denies symptoms aside form pain at the fracture site. He denies CP, SOB, N/V, dysuria. 1) Hip fracture - admitted with protocol pending ortho evaluation. In terms of his RCRI, it is technically 0.9% however he has documented severe CAD and suffered an TN 12/29 - we would therefore prefer he were evaluated by cardiology prior to intervention. 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 It is noted that he tolerated sedation for a colonoscopy earlier in the year. 2) CAD - we have held ASA and Plavix pending ortho eval - cont Nadolol, Crestor. 3) COPD - continue prescribed inhalers - incentive cecilio - no evidence of acute exacerbation. 4) CKD 3 - maintain adequate volume hunter-op. 5) Hypothyroid - cont Synthroid 6) BPH - nursing could not pass a cath due to pain - he would prefer this was placed after he was sedated - he is not having any difficulty urinating at present. 7) HTN - Lisinopril and Imdur held for AM - cont B ivan. Full - SCDs Total time for this admit including review of labs, records, EKG, imaging cath report - discussion with pt, ER attending and cardiology - 38 min Level of Care Med/Surg Resuscitation Status FULL RESUSCITATION VTE Prophylaxis Given or contraindicated: SCD's
[2017-07-10 20:55] VITALS: BP 149/79; PULSE 67; TEMP 37; O2SAT 90; Ht 165.1 cm; Wt 57.0 kg
[2017-07-10] MEDS ORDERED: MoRPHine SULFATE 4 MG/ML 1 ML CARP\\VIAL ONE (21:10)
[2017-07-10] MEDS: ROSUVASTATIN CALCIUM 20 MG TAB PO SCH (22:24)
[2017-07-10] MEDS: DOCUSATE SODIUM/SENNA 50/8.6MG TAB PO SCH (22:24)
[2017-07-10] MEDS: TAMSULOSIN HCL 0.4 MG CAP PO SCH (22:24)
[2017-07-10] MEDS: FLUTICASONE HFA 110MCG INHALER INH SCH (22:25)
[2017-07-10 22:55] VITALS: BP 128/67; PULSE 64; TEMP 36.9; O2SAT 96
[2017-07-11] VITALS (8 sets, daily range): BP systolic 127–170; BP diastolic 67–87; PULSE 57–63; TEMP 36.5–36.9; O2SAT 93–97
[2017-07-11] MEDS: LEVOTHYROXINE 50 MCG TAB PO SCH (05:31)
[2017-07-11] MEDS ORDERED: LIDOCAINE HCL 2% JELLY 30 ML TUBE EXT PRN (06:00)
[2017-07-11] MEDS ORDERED: CEFAZOLIN 2000 MG/60 ML D5W 60 ML IV SCH (06:00)
[2017-07-11] MEDS ORDERED: SODIUM CHLORIDE 0.9% 1000ML 1,000 ML IV SCH (06:45)
[2017-07-11] MEDS: FLUTICASONE HFA 110MCG INHALER INH SCH ×2 (09:24→21:53)
[2017-07-11] MEDS: NADOLOL 40 MG TAB PO SCH (09:26)
--- NOTE | 2017-07-11 14:37 | Cardiology Consultation ---
Cardiology Consultation Date of Consultation: Jul 11, 2017. Requesting Physician: Terrance Reason for Consultation: CAD History of Present Illness The patient is a 81-year-old gentleman with a history of coronary artery disease who suffered a fracture of the right femur. Patient states that he was descending from a truck bed is when he suffered a fracture. There is no associated dizziness or lightheadedness. He did not suffer a syncopal episode. There is no associated palpitations. The patient otherwise claims to have been feeling well leading up to the event. He is an active individual who is accustomed to routine activity around the house in his yard. These activities do not tended produce limiting symptoms. He has not recently suffered from exertional chest pain or any episodes of chest discomfort. He denies any breathing difficulties or limiting dyspnea with activity. He has not experienced any recent palpitations. He has very rare dizzy episodes that are random and very transient. He has not report symptoms consistent with orthostatic hypotension. He has not suffered a syncopal episode recently. He denies orthopnea or paroxysmal nocturnal dyspnea. He has not had symptoms of lower extremity edema recently. Past Medical/Surgical History Coronary artery disease status post coronary artery bypass grafting The patient underwent catheterization in December 2015. At that point he was noted to have occlusion of saphenous vein graft to an OM which underwent stenting. He is known to have residual disease in the left anterior descending and occlusion of the graft to the right coronary artery. Preserved LV systolic function Bradycardia without symptoms Hypertension Hyperlipidemia Benign prostatic hypertrophy Obstructive sleep apnea Renal insufficiency Diabetes mellitus Vocal cord paralysis Past surgical history Coronary artery bypass grafting including POWELL to the LAD, saphenous vein graft to the OM x2 and saphenous vein graft to the right coronary artery Appendectomy Cataracts Sinus surgery Trans urethral resection of the prostate Family History No pertinent family history No premature coronary disease Social History Smoking Status: Former Smoker History of Alcohol Use: No Currently lives with his locally. Retired singleton. Review of Systems Constitutional: + see HPI Respiratory: + cough, + shortness of breath Cardiac: + chest pain Abdomen: + see HPI Male : + see HPI Neurologic: + see HPI Heme: + see HPI Endo: + see HPI Skin: + see HPI Mild pain in the right upper extremity. All Other Systems: Reviewed and Negative Allergies Coded Allergies: No Known Allergies (Verified , 07/10/17) Medications Current Inpatient Medications Medications (Trade) Dose Ordered Sig/Eboni Route Start Time Stop Time Status Last Admin Dose Admin Albuterol Sulfate (Ventolin 0.083% 2.5MG/3ML Neb) 2.5 mg QID PRN INH 07/10/17 19:45 08/09/17 19:44 Fluticasone Propionate (Flovent Hfa 110MCG Inhaler) 1 puffs BID INH 07/10/17 21:00 08/09/17 20:59 07/11/17 09:24 1 PUFFS Levothyroxine Sodium (Synthroid Tab) 50 mcg DAILYBB PO 07/11/17 06:00 08/10/17 05:59 07/11/17 05:31 50 MCG Nitroglycerin (Nitrostat Tab) 0.4 mg UD PRN UT 07/10/17 19:45 08/09/17 19:44 Rosuvastatin Calcium (Crestor Tab) 40 mg HS PO 07/10/17 21:00 08/09/17 20:59 07/10/17 22:24 40 MG Tamsulosin HCl (Flomax Cap) 0.4 mg QPM PO 07/10/17 21:00 08/09/17 20:59 07/10/17 22:24 0.4 MG Nadolol (Corgard Tab) 30 mg QAM PO 07/11/17 09:00 08/10/17 08:59 07/11/17 09:26 30 MG Cefazolin Sodium 60 ml @ 120 mls/hr PREOP IV 07/11/17 06:00 07/12/17 05:59 Ondansetron HCl (Zofran Inj) 4 mg Q6H PRN IV 07/10/17 19:45 08/09/17 19:44 Acetaminophen (Tylenol Tab) 650 mg Q6H PRN PO 07/10/17 19:45 08/09/17 19:44 Oxycodone HCl (Roxicodone Immediate Rel Tab) 10 mg Q4H PRN PO 07/10/17 19:45 07/24/17 19:44 Morphine Sulfate (MoRPHine SULFATE INJ) 4 mg Q2H PRN IV 07/10/17 19:45 07/24/17 19:44 07/11/17 11:30 4 MG Naloxone HCl (Narcan Inj) 0.1 mg PRN PRN IV 07/10/17 19:45 08/09/17 19:44 Senna/Docusate Sodium (Senokot S Tab) 2 tab HS PO 07/10/17 21:00 08/09/17 20:59 07/10/17 22:24 2 TAB Polyethylene (Miralax Powder Packet) 17 gm DAILY PRN PO 07/10/17 19:45 08/09/17 19:44 Magnesium Hydroxide (Milk Of Magnesia Susp) 30 ml DAILY PRN PO 07/10/17 19:45 08/09/17 19:44 Bisacodyl (Dulcolax Supp) 10 mg DAILY PRN AR 07/10/17 19:45 08/09/17 19:44 Sodium Biphosphate/ Sodium Phosphate (Fleet Enema) 132 ml PRN PRN AR 07/10/17 19:45 Lidocaine HCl (Xylocaine Jelly 2%) UD PRN EXT 07/11/17 06:00 08/10/17 05:59 Sodium Chloride 1,000 ml @ 80 mls/hr [id number] IV 07/11/17 06:45 07/11/17 19:14 07/11/17 09:25 80 MLS/HR Physical Exam Vital Signs Past 12 Hours Date Time Temp Pulse Resp B/P (MAP) Pulse Ox O2 Delivery O2 Flow Rate FiO2 07/11/17 08:45 Nasal Cannula 2.0 07/11/17 07:37 36.5 60 16 127/67 (87) 96 2.0 The patient is alert and oriented. Mood and affect appeared normal. He answered all questions appropriately. His voice is hoarse HEENT: Pupils are equal and reactive to light and accommodation. Extraocular movements are intact. The sclerae are anicteric. Neuro: Cranial nerves intact Neck: Patient's neck is supple. He has palpable carotid pulses bilaterally without bruits on auscultation. There is no evidence of jugular venous distention. The thyroid is not enlarged. Lungs: Clear to auscultation bilaterally. He has good air movement without use of accessory muscles. No rales wheezes or rhonchi. Cardiac: Heart demonstrates a regular rate and rhythm. Normal S1 and S2. No murmurs on examination. Pulses: The patient has palpable radial pulses bilaterally that are equal in intensity Extremities: There was no evidence of hypoperfusion. There is no cyanosis or clubbing. There is no edema. SCDs are in place Skin: I did not appreciate any rashes on examination today. Data Laboratory Results: Last 24 Hours Test 07/10/17 19:28 07/11/17 05:34 White Blood Count 8.30 K/uL Red Blood Count 4.16 M/uL Hemoglobin 12.9 g/dL Hematocrit 38.3 % Mean Corpuscular Volume 92.1 fL Mean Corpuscular Hemoglobin 31.0 pg Mean Corpuscular Hemoglobin Concent 33.7 g/dl Platelet Count 148 K/uL Mean Platelet Volume 11.4 fL Neutrophils (%) (Auto) 76.5 % Lymphocytes (%) (Auto) 14.2 % Monocytes (%) (Auto) 7.7 % Eosinophils (%) (Auto) 1.3 % Basophils (%) (Auto) 0.2 % Neutrophils # (Auto) 6.34 K/uL Lymphocytes # (Auto) 1.18 K/uL Monocytes # (Auto) 0.64 K/uL Eosinophils # (Auto) 0.11 K/uL Basophils # (Auto) 0.02 K/uL RDW Standard Deviation 50.9 fL RDW Coefficient of Variation 15.1 % Immature Granulocyte % (Auto) 0.1 % Immature Granulocyte # (Auto) 0.01 K/uL Prothrombin Time 11.4 SECONDS Prothromb Time International Ratio 1.1 Activated Partial Thromboplast Time 28.0 SECONDS Partial Thromboplastin Ratio 1.1 Sodium Level 141 mmol/L Potassium Level 3.8 mmol/L Chloride Level 107 mmol/L Carbon Dioxide Level 26 mmol/L Anion Gap 8.0 mmol/L Blood Urea Nitrogen 20 mg/dl Creatinine 1.60 mg/dl Est Creatinine Clear Calc Drug Dose 30.2 ml/min Estimated GFR () 46.8 Estimated GFR (Non- 40.4 BUN/Creatinine Ratio 12.7 Random Glucose 101 mg/dl Calcium Level 8.7 mg/dl Imaging: No evidence of acute cardiopulmonary disease EKG: Normal sinus rhythm with T-wave inversions noted lateral precordial leads. This is improved from EKG is present in his outpatient record. Cardiac perfusion study performed 02/2017. No evidence of inducible ischemia. Fixed defects in the inferior and inferior lateral suarez. Ejection fraction estimated 66 percent with akinesis of the inferolateral wall. Echocardiogram December 2015: Normal LV systolic function. Wall motion abnormalities including inferior and inferolateral suarez. Mild mitral regurgitation Assessment & Plan 1. Coronary artery disease: Patient is known to have severe coronary disease and a intervention in December of 2015. He is not currently reporting symptoms of angina. He had a recent cardiac perfusion study which did not demonstrate any evidence of inducible ischemia. He has preserved LV systolic function. 2. Preoperative: The patient is low risk for the intended procedure. He has no unstable cardiac symptoms to suggest decompensated heart failure, malignant arrhythmias or coronary insufficiency. He is able perform a reasonable workload at home without symptoms. He should be continued on his outpatient medical regimen if possible to include his beta-blockade. Anti-platelet agents would ideally be continued but if they produce an excessive risk of bleeding perioperatively they can be discontinued for a brief period of time. As with most patients who have a history of significant cardiac disease efforts should be made to avoid significant hypo or hypertension, significant anemia, hypoxia or tachycardia.
[2017-07-11 15:02] LABS: URINE APPEARANCE CLEAR (CLEAR); URINE BILIRUBIN NEG (NEG); URINE COLOR YELLOW; URINE EPITHELIAL CELL AUTO >30 /lpf (0-5); URINE NITRITE NEG (NEG); URINE PH 6.5 (4.5-7.5); URINE SPECIFIC GRAVITY 1.017 (1.000-1.030); UROBILINOGEN NEG (NEG); ZZURINE CULT IF INDIC CATH YES
[2017-07-11 15:31] LABS: MANUAL MICROSCOPIC REQUIRED? NO; REVIEW REQ? YES
[2017-07-11] MEDS ORDERED: ROCURONIUM BROMIDE 10 MG/ML 5 ML VIAL IV ONE (15:39)
[2017-07-11] MEDS ORDERED: PROPOFOL IV EMULSION 10 MG/ML 20 ML VIAL IV ONE (15:39)
[2017-07-11] MEDS ORDERED: LIDOCAINE HCL 2% 2 ML VIAL (20MG/ML) ONE (15:39)
[2017-07-11] MEDS ORDERED: FENTANYL CITRATE INJ 50 MCG/1 ML 2 ML VIAL ONE (15:40)
--- NOTE | 2017-07-11 15:57 | History & Physical Bridge Note ---
H&P Re-Evaluation Bridge Note: I have examined the patient, reviewed the History & Physical and in the interval since the performance of the History & Physical I have noted the following changes of clinical significance: No changes noted
--- NOTE | 2017-07-11 16:30 | Progress Note ---
Progress Note Date of Service Jul 11, 2017. Progress Note Called for assistance with challenging plaza catheter - prior attempts by nursing staff prior to arrival in the OR - once anesthesized, I placed a 20F coude catheter with standard aseptic technique - return of clear urine. - pt stable to move forward with the main case
[2017-07-11] MEDS ORDERED: MoRPHine SULFATE 2 MG/ML CARP IV PRN (16:45)
[2017-07-11] MEDS ORDERED: TRAMADOL HCL 50 MG TAB PO PRN (16:45)
[2017-07-11] MEDS ORDERED: ONDANSETRON INJ 2 MG/ML 2 ML VIAL IV PRN ×2 (16:45→17:30)
[2017-07-11] MEDS ORDERED: MoRPHine SULFATE 4 MG/ML 1 ML CARP\\VIAL IV PRN (16:45)
[2017-07-11] MEDS ORDERED: OXYCODONE HCL IR 5 MG TAB (IMMEDIATE RELEASE) PO PRN (16:45)
--- NOTE | 2017-07-11 16:46 | Progress Note ---
Subjective Date of Service: Jul 11, 2017. Subjective Patient is seen in his room lying in bed almost flat family at the bedside. He was quizzed and most recently has had any chest pain shortness of breath or decreased exercise function. Patient states that he pre-much just fell as he jumped out of his pickup truck and fractured his leg despite his recent cardiac intervention he has had no unstable anginal symptoms and has had preop clearance by Dr. Ronnie Espinosa Problem List Medical Problems: (1) Anxiety Disorder, Unspecified Status: Chronic (2) Asthma, Unspecified Status: Chronic (3) CAD (coronary artery disease) Status: Chronic (4) Diabetes Status: Chronic (5) Emphysema, Unspecified Status: Chronic (6) Fracture of right hip Status: Acute (7) Heart disease Status: Chronic (8) Hyperlipidemia, Unspecified Status: Chronic (9) Hypertension Nos Status: Chronic (10) 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 (11) Hypothyroidism, Unspecified Status: Chronic Review of Systems Constitutional: No fever, No chills, No weakness, No fatigue Respiratory: No cough, No sputum, No shortness of breath, No dyspnea on exertion Cardiac: No chest pain, No orthopnea, No PND, No edema Abdomen: No pain, No nausea, No vomiting, No diarrhea Male : + dysuria, + hematuria (after Plaza attempt) Psychiatric: No depression symptoms, No anhedonism Objective Vital Signs Date Time Temp Pulse Resp B/P (MAP) Pulse Ox O2 Delivery O2 Flow Rate FiO2 07/11/17 07:37 36.5 60 16 127/67 (87) 96 2.0 07/10/17 23:41 Nasal Cannula 2.0 07/10/17 22:55 36.9 64 16 128/67 (87) 96 Nasal Cannula 2.0 07/10/17 21:11 58 20 137/86 93 07/10/17 20:55 37.0 67 16 149/79 90 Room Air 07/10/17 19:50 65 16 142/77 92 Room Air 07/10/17 18:13 56 22 122/72 93 Room Air 07/10/17 16:40 36.4 52 16 159/78 94 Room Air Physical Exam General Appearance: WD/WN, + mild distress (from leg pain) Eyes: PERRL, EOMI Neck: supple, no JVD Respiratory/Chest: chest non-tender, lungs clear Cardiovascular: regular rate, rhythm, no murmur Abdomen: normal bowel sounds, non tender, soft Neurologic/Psychiatric: alert, oriented x 3 Laboratory Results Last 24 Hours Test 07/10/17 19:28 07/11/17 05:34 White Blood Count 8.30 K/uL Red Blood Count 4.16 M/uL Hemoglobin 12.9 g/dL Hematocrit 38.3 % Mean Corpuscular Volume 92.1 fL Mean Corpuscular Hemoglobin 31.0 pg Mean Corpuscular Hemoglobin Concent 33.7 g/dl Platelet Count 148 K/uL Mean Platelet Volume 11.4 fL Neutrophils (%) (Auto) 76.5 % Lymphocytes (%) (Auto) 14.2 % Monocytes (%) (Auto) 7.7 % Eosinophils (%) (Auto) 1.3 % Basophils (%) (Auto) 0.2 % Neutrophils # (Auto) 6.34 K/uL Lymphocytes # (Auto) 1.18 K/uL Monocytes # (Auto) 0.64 K/uL Eosinophils # (Auto) 0.11 K/uL Basophils # (Auto) 0.02 K/uL RDW Standard Deviation 50.9 fL RDW Coefficient of Variation 15.1 % Immature Granulocyte % (Auto) 0.1 % Immature Granulocyte # (Auto) 0.01 K/uL Prothrombin Time 11.4 SECONDS Prothromb Time International Ratio 1.1 Activated Partial Thromboplast Time 28.0 SECONDS Partial Thromboplastin Ratio 1.1 Sodium Level 141 mmol/L Potassium Level 3.8 mmol/L Chloride Level 107 mmol/L Carbon Dioxide Level 26 mmol/L Anion Gap 8.0 mmol/L Blood Urea Nitrogen 20 mg/dl Creatinine 1.60 mg/dl Est Creatinine Clear Calc Drug Dose 30.2 ml/min Estimated GFR () 46.8 Estimated GFR (Non- 40.4 BUN/Creatinine Ratio 12.7 Random Glucose 101 mg/dl Calcium Level 8.7 mg/dl Assessment and Plan 81 y/o M traumatic right femur fracture Hx severe CAD, CKD 3, HTN, COPD, BPH, hypothyroid. Recent cardiac intervention with stent is 6 months previous Pre op He denies CP, SOB, N/V, dysuria. Cardiac evaluation feels he is with good risk stratification to proceed to surgery Hip fracture - ortho evaluation. with [facility] in recent past admitting team has asked for cardiology eval prior to surgery CAD - hold ASA and Plavix pending ortho eval - continue Nadolol, Crestor. Resume Plavix postoperatively with likely Lovenox for DVT prevention COPD - stable only on albuterol, consider combivent or duonebs if needed CKD 3 - follow with anticipated volume loss Hypothyroid - cont Synthroid BPH -- he is not having any difficulty urinating at present, nursing could not pass plaza , is on flomax HTN - Lisinopril and Imdur held for AM - cont B ivan. Continue to hold lisinopril postop day 1 Full - SCDs
[2017-07-11] MEDS ORDERED: PHENYLEPHRINE 100MCG/ML 5ML SYR ONE (16:49)
[2017-07-11] MEDS ORDERED: EpHEDrine SULFATE 50MG/5ML SYR ONE (16:49)
[2017-07-11] MEDS ORDERED: GLYCOPYRROLATE INJ 0.2 MG/ML VIAL ONE (16:50)
[2017-07-11] MEDS ORDERED: NEOSTIGMINE METHYLSULFATE 5 MG/5 ML SYR ONE (16:50)
[2017-07-11] MEDS ORDERED: MoRPHine SULFATE 2 MG/ML CARP ONE (16:52)
[2017-07-11] MEDS ORDERED: BUPIVACAINE 0.5 % 5 MG/1 ML MPF 30ML VIAL ONE (16:59)
[2017-07-11] MEDS ORDERED: DEXAMETHASONE SOD INJ 4 MG/ML VIAL ONE (17:05)
[2017-07-11] MEDS ORDERED: ONDANSETRON INJ 2 MG/ML 2 ML VIAL ONE (17:05)
--- NOTE | 2017-07-11 17:25 | [facility] Operative Report ---
Operative Report Operative Date Jul 11, 2017. Pre-Operative Diagnosis right hip femoral neck fracture Post-Operative Diagnosis same Procedure(s) Performed ORIF Right Hip with 7.[address] Puneet Euceda Linen Controller Surgeon(s) none Estimated Blood Loss 20ml Findings above Specimens none per surgeon Drains 0 Anesthesia geta Complication(s) None Disposition Recovery Room / PACU Indications 81-year-old male who fell. He sustained a nondisplaced right femoral neck fracture. Given the nature of the injury I recommended [id number] reduction internal fixation with cannulated screw fixation. Description of Procedure Risks benefits and alternatives of surgery including but not limited to infection, DVT, PE, pain, stiffness, need for surgery, damage to blood vessels, damage to nerves or risks of anesthesia, were discussed with the patient and her family and they wished to proceed. Patient was identified in the laterality was confirmed and marked. They received a preoperative antibiotic. The patient was transferred to the fracture table. The operative limb was placed in traction and the well leg was placed in a well leg guardado that was well-padded. The arms were well-padded and placed out of the way of the surgical field. I confirmed reduction of the fracture with fluoroscopy. The hip was then prepped and draped in the usual standard manner with ChloraPrep. I made a longitudinal incision distal to the greater trochanter. I sharply incised through the skin and then used Bovie electrocautery to achieve hemostasis. I incised through the fascia and then bluntly dissected down to the tip of the greater trochanter. Under fluoroscopic guidance I placed a guide pin into the lateral cortex of the femur. Under fluoroscopic guidance and made corrections to the trajectory of the pin as needed. I placed one pin in a posterior inferior location. I then used a 2 [address] aiming guide to place a second time into a posterior superior region. I then placed a third pin to achieve fixation along the anterior cortex of the femoral neck forming a triangular pattern to my screw position. I then measured for each screw individually. I drilled the near cortex and then advanced the screw under power and then compressed the fracture using a hand screwdriver. I confirmed the screw lengths and position of the screws on AP and lateral fluoroscopy views. I was satisfied with the position of the screws and the length of the screws. The wound was then thoroughly irrigated. The fascia was closed with interrupted #1 Vicryl suture. Subcutaneous tissues closed with interrupted 2-0 Vicryl suture and the skin with damaris. Sterile dressings applied. All needle and sponge counts were correct at the end of the procedure the patient was transferred to the PACU in stable condition without apparent complication. I attest to the content of the Intraoperative Record and any orders documented therein. Any exceptions are noted below.
--- NOTE | 2017-07-11 17:29 | DIAGNOSTIC IMAGING REPORT ---
INTRAOPERATIVE RIGHT HIP 2 VIEWS CLINICAL HISTORY: Right femoral neck fracture COMPARISON STUDY: Conventional radiographic study dated 07/10/2017 FLUOROSCOPY TIME: 64 seconds. NUMBER OF FLUOROSCOPIC IMAGES: 2 FINDINGS: 2 intraoperative fluoroscopic spot images demonstrate 3 cannulated screws traversing the right femoral neck. IMPRESSION: Internally fixated right femoral neck fracture utilizing 3 cannulated screws. Electronically signed by: Ja Ayala M.D. 07/11/2017 5:28 PM Dictated Date/Time: 07/11/2017 5:26 PM
[2017-07-11] MEDS ORDERED: ATROPINE SULFATE 0.1 MG/ML 5ML SYR IV PRN (17:30)
[2017-07-11] MEDS ORDERED: LABETALOL HCL IV 5 MG/ML 20ML IV PRN (17:30)
[2017-07-11] MEDS ORDERED: HYDROmorphone INJ 2 MG/ML SYR/VIAL IV PRN (17:30)
--- NOTE | 2017-07-11 18:08 | Anesthesiology Progress Note ---
Anesthesia Post Op Note Date & Time Jul 11, 2017 at 18:08 Vital Signs Pain Intensity: 0 Vital Signs Past 12 Hours Date Time Temp Pulse Resp B/P (MAP) Pulse Ox O2 Delivery O2 Flow Rate FiO2 07/11/17 18:05 36.9 60 18 160/82 93 Nasal Cannula 2 07/11/17 17:55 58 12 162/79 94 Nasal Cannula 2 07/11/17 17:45 58 14 160/80 98 Mask 10 07/11/17 17:35 59 12 151/75 99 Mask 10 07/11/17 17:25 36.5 61 17 163/80 100 Mask 10 07/11/17 15:00 36.9 60 18 144/77 (99) 96 Nasal Cannula 2.0 07/11/17 08:45 Nasal Cannula 2.0 07/11/17 07:37 36.5 60 16 127/67 (87) 96 2.0 Notes Mental Status: alert / awake / arousable, participated in evaluation Pt Amnestic to Procedure: Yes Nausea / Vomiting: adequately controlled Pain: adequately controlled Airway Patency, RR, SpO2: stable & adequate BP & HR: stable & adequate Hydration State: stable & adequate Anesthetic Complications: no major complications apparent
[2017-07-11] MEDS: DOCUSATE SODIUM/SENNA 50/8.6MG TAB PO SCH (21:53)
[2017-07-11] MEDS: TAMSULOSIN HCL 0.4 MG CAP PO SCH (21:54)
[2017-07-11] MEDS: ROSUVASTATIN CALCIUM 20 MG TAB PO SCH (21:54)
[2017-07-11] MEDS: CEFAZOLIN IV 1,000 MG in DEXTROSE 5% 50ML 50 ML IV SCH (23:34)
[2017-07-12 03:39] VITALS: BP 108/64; PULSE 57; TEMP 36.8; O2SAT 93
[2017-07-12] MEDS: LEVOTHYROXINE 50 MCG TAB PO SCH (05:47)
[2017-07-12 07:54] VITALS: BP 117/65; PULSE 56; TEMP 36.5; O2SAT 94
--- NOTE | 2017-07-12 08:51 | Anesthesiology Progress Note ---
Anesthesia Post Op Note Date & Time Jul 12, 2017 at 08:50 Vital Signs Vital Signs Past 12 Hours Date Time Temp Pulse Resp B/P (MAP) Pulse Ox O2 Delivery O2 Flow Rate FiO2 07/12/17 07:54 36.5 56 19 117/65 (82) 94 Nasal Cannula 2.0 07/12/17 03:39 36.8 57 18 108/64 (79) 93 Nasal Cannula 2.0 07/11/17 23:50 36.5 61 18 128/69 (88) 93 Nasal Cannula 2.0 07/11/17 23:39 Nasal Cannula 2.0 Notes Mental Status: alert / awake / arousable, participated in evaluation Pt Amnestic to Procedure: Yes Nausea / Vomiting: adequately controlled Pain: adequately controlled Airway Patency, RR, SpO2: stable & adequate BP & HR: stable & adequate Hydration State: stable & adequate Anesthetic Complications: no major complications apparent
--- NOTE | 2017-07-12 08:54 | Hospitalist Progress Note ---
Hospitalist Progress Note Date of Service Jul 12, 2017. (Judi Thomason PA-C) Subjective Pt evaluation today including: conversation w/ patient, conversation w/ family , physical exam, chart review, lab review Pain: Minimal R hip pain PO Intake: good Voiding: plaza catheter in place The patient was seen and examined this morning. Pt reports doing well. He has been up walking about the room without difficulty. He has no acute complaints and is hoping to go home soon. He wants home health PT/OT vs rehab. Constitutional: No fever, No chills, No sweats Eyes: No discharge, No diplopia ENT: + problem reported (has a hoarse voice chronically), No nasal symptoms , No sore throat, No trouble swallowing Respiratory: No cough, No shortness of breath Cardiovascular: No chest pain, No edema Abdomen: No pain, No nausea, No vomiting, No diarrhea, No constipation Musculoskeletal: No joint pain, No muscle pain Neurologic: No weakness, No numbness/tingling Endo: No fatigue Skin: No rash, No itch (Judi Thomason, WU) Objective Vital Signs Date Time Temp Pulse Resp B/P (MAP) Pulse Ox O2 Delivery O2 Flow Rate FiO2 07/12/17 07:54 36.5 56 19 117/65 (82) 94 Nasal Cannula 2.0 07/12/17 03:39 36.8 57 18 108/64 (79) 93 Nasal Cannula 2.0 07/11/17 23:50 36.5 61 18 128/69 (88) 93 Nasal Cannula 2.0 07/11/17 23:39 Nasal Cannula 2.0 07/11/17 19:20 57 16 169/87 (114) 96 Nasal Cannula 2.0 07/11/17 18:50 36.5 60 14 170/81 (110) 97 Nasal Cannula 3.0 07/11/17 18:48 94 Nasal Cannula 2.0 07/11/17 18:22 94 Nasal Cannula 2.0 07/11/17 18:20 36.8 63 14 158/87 (110) 94 Nasal Cannula 2.0 07/11/17 18:05 36.9 60 18 160/82 93 Nasal Cannula 2 07/11/17 17:55 58 12 162/79 94 Nasal Cannula 2 07/11/17 17:45 58 14 160/80 98 Mask 10 07/11/17 17:35 59 12 151/75 99 Mask 10 07/11/17 17:25 36.5 61 17 163/80 100 Mask 10 07/11/17 15:00 36.9 60 18 144/77 (99) 96 Nasal Cannula 2.0 (Judi Thomason PA-C) Physical Exam General Appearance: WD/WN, no apparent distress, + thin, + pertinent finding ( sitting up in bedside chair) Eyes: PERRL, EOMI ENT: hearing grossly normal, pharynx normal Neck: supple, no JVD Respiratory/Chest: lungs clear, no respiratory distress, no accessory muscle use Cardiovascular: regular rate, rhythm, no murmur Abdomen: normal bowel sounds, non tender, soft Extremities: non-tender, no pedal edema, + pertinent finding (R leg elevated, dressing is C/D/I) Neurologic/Psychiatric: alert, normal mood/affect, oriented x 3 Skin: normal color, warm/dry (Judi Thomason PA-C) Laboratory Results Last 24 Hours Test 07/12/17 08:31 (Judi Thomason PA-C) Assessment and Plan 81 y/o M traumatic right femur fracture Hx severe CAD, CKD 3, HTN, COPD, BPH, hypothyroid. Recent cardiac intervention with stent is 6 months previous R femoral neck fracture - Pain management and bowel regimen on board - PT is POD #[address] Euceda - PT/OT per primary team - Pt plans for home health services as he is not interested in going to rehab, lives at home with his significant other. - Hgb actually is increased by a gram? Will investigate if the patient received blood intraoperatively. CAD - Cardiology on board- in agreement to proceed with surgery. - Spoke with cardiology, Meryl Aldana PA-C- plan to restart ASA 81 mg this morning and continue plavix for dual antiplatelet therapy. Continue lovenox for DVT ppx since pt had most recent cardiac stent x 1 placed Dec 2016, he has a total of 3 stents placed. Follow[address] with Dr. Bartholomew as an outpatient. - Continue rosuvastatin 10 mg - Continue nadolol 30 mg QAM COPD - stable only on albuterol, consider combivent or duonebs if needed CKD stage III - follow prp with anticipated volume loss Hypothyroid - cont Synthroid BPH - he is not having any difficulty urinating at present, nursing could not pass plaza, is on flomax HTN - Lisinopril and Imdur held for AM - cont B ivan. Continue to hold lisinopril postop day 1 DVT ppx - SCDs CODE STATUS: FULL CODE Disposition: From home, d/c with Home health services likely within 1 day. (Judi Thomason, WU) PA Physician Supervision Note: I interviewed and examined the patient. Discussed with Judi Thomason PAC and agree with findings and plan as documented in the note. Any exceptions or clarifications are listed here: None Patient is doing well postoperatively cardiology is managing his antiplatelet agents he'll likely need some rehabilitation before going home he is actually had improvement in his hemoglobin since surgery Continue supportive care managing his medical conditions which have all been stable for concern for traumatic catheterization is being addressed by Dr. Junior if no other active medical problems cardiology can continue to make recommendations we may sign off Documented By: Edward Noble (Edward Noble M.D.)
[2017-07-12 08:56] LABS: HEMATOCRIT 38.6 % (42-52); MEAN CELL VOLUME 92.8 fL (80-100); MEAN CORPUSCULAR HEMOGLOBIN 32.5 pg (25-34); MEAN PLATELET VOLUME 11.5 fL (7.4-10.4); PLATELET COUNT 114 K/uL (130-400); RED BLOOD COUNT 4.16 M/uL (4.7-6.1); WHITE BLOOD COUNT 8.52 K/uL (4.8-10.8)
[2017-07-12] MEDS ORDERED: ENOXAPARIN 40 MG/0.4 ML SYR SQ SCH (09:00)
[2017-07-12] MEDS: CEFAZOLIN IV 1,000 MG in DEXTROSE 5% 50ML 50 ML IV SCH (09:10)
[2017-07-12] MEDS: FLUTICASONE HFA 110MCG INHALER INH SCH ×2 (09:10→21:10)
[2017-07-12] MEDS: NADOLOL 40 MG TAB PO SCH (09:11)
[2017-07-12] MEDS: ENOXAPARIN 30 MG/0.3 ML SYR SQ SCH (09:14)
[2017-07-12 09:21] LABS: BUN/CREATININE RATIO 15.2 (10-20); CALCIUM 8.7 mg/dl (8.5-10.1); CREATININE 1.7 mg/dl (0.60-1.40); POTASSIUM 4.3 mmol/L (3.5-5.1)
[2017-07-12 09:45] VITALS: BP 133/72; PULSE 60; O2SAT 93
--- NOTE | 2017-07-12 09:59 | Cardiology Follow-Up ---
Subjective Date of Service: Jul 12, 2017. Pt evaluation today including: conversation w/ patient, physical exam, chart review, lab review, review of studies, review of inpatient medication list, conversation w/ attending History of Present Illness The patient is post-op day 1 following right hip fracture with ORIF of right hip. He was seen in his room at [facility] this morning. He is currently sitting out in his chair. He was just seen by PT and OT, and he was able to walk a short distance in the hallway with the use of a walker and some assistance. He reports that he is feeling well overall. He denies chest pain or other anginal type symptoms. He denies shortness of breath at rest or exertional dyspnea. He denies orthopnea, PND, or edema. He denies palpitations, lightheadedness, dizziness, syncope, presyncope, abnormal bleeding, or cerebrovascular symptoms. Social History Smoking Status: Former Smoker History of Alcohol Use: No Review of Systems Mild pain in the right upper extremity. Objective Vital Signs Past 12 Hours Date Time Temp Pulse Resp B/P (MAP) Pulse Ox O2 Delivery O2 Flow Rate FiO2 07/12/17 07:54 36.5 56 19 117/65 (82) 94 Nasal Cannula 2.0 07/12/17 03:39 36.8 57 18 108/64 (79) 93 Nasal Cannula 2.0 07/11/17 23:50 36.5 61 18 128/69 (88) 93 Nasal Cannula 2.0 07/11/17 23:39 Nasal Cannula 2.0 Last Recorded Weight-Kilograms: 57.000 Physical Exam Constitutional: Alert, oriented, in no acute distress HEENT: Head is atraumatic and normocephalic. EOMs intact. Sclera anicteric. Face is symmetric. No perioral cyanosis. Mucous membranes moist. Neck: Supple, no JVD Pulmonary: Normal respiratory effort, clear to auscultation bilaterally Cardiac: Regular rate and rhythm, normal S1 and S2, no gallops, no rubs, no murmurs Extremities: No clubbing, cyanosis, or edema. Pulses 2+ and symmetric Abdomen: Normal bowel sounds, soft, non-tender, no abdominal mass palpated Skin: Normal skin color, turgor, and pigmentation, no rash, no skin lesions Neurological: Oriented to person, place, and time Data Laboratory Results: Last 24 Hours Test 07/12/17 08:31 White Blood Count 8.52 K/uL Red Blood Count 4.16 M/uL Hemoglobin 13.5 g/dL Hematocrit 38.6 % Mean Corpuscular Volume 92.8 fL Mean Corpuscular Hemoglobin 32.5 pg Mean Corpuscular Hemoglobin Concent 35.0 g/dl RDW Standard Deviation 51.5 fL RDW Coefficient of Variation 15.3 % Platelet Count 114 K/uL Mean Platelet Volume 11.5 fL Sodium Level 139 mmol/L Potassium Level 4.3 mmol/L Chloride Level 107 mmol/L Carbon Dioxide Level 25 mmol/L Anion Gap 7.0 mmol/L Blood Urea Nitrogen 26 mg/dl Creatinine 1.70 mg/dl Est Creatinine Clear Calc Drug Dose 28.4 ml/min Estimated GFR () 43.5 Estimated GFR (Non- 37.5 BUN/Creatinine Ratio 15.2 Random Glucose 129 mg/dl Calcium Level 8.7 mg/dl Assessment and Plan ASSESSMENT/PLAN: 1. Coronary artery disease S/P CABG and SVG PCI: He denies angina. He has no evidence of congestive heart failure or arrhythmia. The patient was discussed with his primary conservation enforcement officer Dr. Jiménez as well as interventional cardiology , and it is recommended that he be restarted on his low dose aspirin therapy as soon as possible given his history of PCI. Continue high intensity statin therapy and beta ivan therapy. 2. Hypertension: His blood pressure is adequately controlled. Continue current therapy. 3. Dyslipidemia: Continue high intensity statin therapy. 4. Disposition: Will continue to follow along during the patient's hospitalization. Patient seen and examined by me in conjunction with Ms. Aldana. He has no cardiac complaints. Walked in stringer today. Exam without evidence of CHF. BP and HR well controlled. Aspirin dose given this afternoon. In light of his history of coronary stents, aspirin should be continued perioperatively without interruption. Thank you. Luis Bartholomew MD
--- NOTE | 2017-07-12 14:03 | Orthopedic Progress Note ---
Orthopedic Progress Note Date of Service Jul 12, 2017. Subjective Post OP Day: 1 Reports: feeling well, pain controlled w PO medications, Denies: chest pain, SOB , nausea / vomiting, light headedness, calf pain Additional Notes: Family and patient states he walked out into the hallway today today. Objective calves soft nontender, N/V intact, dressing C/D/I, A&O x3, toes mobile Date Time Temp Pulse Resp B/P (MAP) Pulse Ox O2 Delivery O2 Flow Rate FiO2 07/12/17 13:25 Nasal Cannula 07/12/17 09:45 60 93 07/12/17 07:54 36.5 56 19 117/65 (82) 94 Nasal Cannula 2.0 07/12/17 03:39 36.8 57 18 108/64 (79) 93 Nasal Cannula 2.0 07/11/17 23:50 36.5 61 18 128/69 (88) 93 Nasal Cannula 2.0 07/11/17 23:39 Nasal Cannula 2.0 07/11/17 19:20 57 16 169/87 (114) 96 Nasal Cannula 2.0 07/11/17 18:50 36.5 60 14 170/81 (110) 97 Nasal Cannula 3.0 07/11/17 18:48 94 Nasal Cannula 2.0 07/11/17 18:22 94 Nasal Cannula 2.0 07/11/17 18:20 36.8 63 14 158/87 (110) 94 Nasal Cannula 2.0 07/11/17 18:05 36.9 60 18 160/82 93 Nasal Cannula 2 07/11/17 17:55 58 12 162/79 94 Nasal Cannula 2 07/11/17 17:45 58 14 160/80 98 Mask 10 07/11/17 17:35 59 12 151/75 99 Mask 10 07/11/17 17:25 36.5 61 17 163/80 100 Mask 10 07/11/17 15:00 36.9 60 18 144/77 (99) 96 Nasal Cannula 2.0 Laboratory Results 24 Hours: Test 07/12/17 08:31 Hematocrit 38.6 % Hemoglobin 13.5 g/dL Assessment & Plan Assessment: POD 1 s/p Right ORIF Hip (7.3 Cannulated screws) WBAT RLE with walker] Dressing change tomorrow. Plan: Family states that they will be using HH Services Continue PT/OT DC when ok with Med service
--- NOTE | 2017-07-12 14:12 | Consultant Recommendations ---
Foaming Machine Operator Recommendations Date of Service Jul 12, 2017. Foaming Machine Operator Recommendations U DISCHARGE INSTRUCTIONS: RIGHT HIP FRACTURE SELF CARE INSTRUCTIONS: A. You are to ambulate with a walker or crutches for approximately 6 weeks. B. You are WEIGHT BEARING TOLERATE on your operative lower extremity for at least 6 weeks. C. Wear low heeled shoes with non-slip soles D. Be sure that your floors are free of things that could trip you throw rugs, electrical cords, and small objects. Avoid wet and waxed floors, especially with crutches/walker/cane. E. Try to walk several times a day with rest periods between. F. You may shower 48 hours after surgery and get the incision area wet, but DO NOT soak or submerge incision area in water. (No baths, swimming pools, hot tubs ) G. You can change your dressing daily. If the wound is dry, you may change the dressing every other day. . H. Do NOT apply soap or any ointment/lotions directly over incision. I. You may use ice as needed to operative site. SPECIAL CARE INSTRUCTIONS: VERY IMPORTANT TO READ AND REVIEW A. You may be at risk for phlebitis or blood clots. a. Wear surgical stockings (JERICA hose) for 2 weeks after surgery to improve circulation and reduce swelling. b. Take LOVENOX 30mg SQ BID for 4 weeks or as directed. This is your blood thinner. B. There are a few signs you need to watch for after you are home. Call [facility] at [phone] if you experience any of the following: a. If you have a temperature of 101 degrees or higher. b. Sudden increase in pain in your hip not relieved by rest or pain medication. c. Any fluid or drainage from the incision; redness of the incision. d. Shortness of breath or chest pain. C. Call your physician if: a. Temperature is greater than 101 degrees (F). b. Pain is not relieved by prescribed pain medications. c. Increase drainage or redness from incision. d. Unanswered questions or concerns. D. Pain Medication: a. You will be prescribed pain medication upon discharge that should last till your first post-operative appointment. b. If you experience nausea and/or skin rash, discontinue this medication and contact our office for an alternative medication. c. Caution- narcotic pain medication can cause constipation. FOLLOW UP VISIT: Please call [facility] (Dr Euceda) at [phone] to schedule a follow up appointment 10-14 days from the date of your surgery date.
[2017-07-12 15:54] VITALS: BP 137/72; PULSE 52; TEMP 36.4; O2SAT 91
[2017-07-12] MEDS: ASPIRIN 81 MG CHEW PO SCH (15:56)
[2017-07-12] MEDS: TAMSULOSIN HCL 0.4 MG CAP PO SCH (21:09)
[2017-07-12] MEDS: ROSUVASTATIN CALCIUM 20 MG TAB PO SCH (21:09)
[2017-07-12] MEDS: DOCUSATE SODIUM/SENNA 50/8.6MG TAB PO SCH (21:09)
[2017-07-12 23:05] VITALS: BP 123/73; PULSE 57; TEMP 36.5; O2SAT 94
[2017-07-13] MEDS: LEVOTHYROXINE 50 MCG TAB PO SCH (05:13)
[2017-07-13 07:06] VITALS: BP 114/66; PULSE 60; TEMP 36.9; O2SAT 88; O2SAT 92
[2017-07-13] MEDS: FLUTICASONE HFA 110MCG INHALER INH SCH (07:57)
[2017-07-13] MEDS: ENOXAPARIN 30 MG/0.3 ML SYR SQ SCH (07:58)
[2017-07-13] MEDS: NADOLOL 40 MG TAB PO SCH (07:59)
[2017-07-13 08:00] VITALS: O2SAT 93
[2017-07-13] MEDS: ASPIRIN 81 MG CHEW PO SCH (08:00)
[2017-07-13] MEDS ORDERED: SENN8.6T7 PO (10:02)
[2017-07-13] MEDS ORDERED: ULT50X PO (10:02)
[2017-07-13] MEDS ORDERED: MRLP17X PO (10:02)
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
--- NOTE | 2017-07-13 10:08 | Discharge Instructions ---
Discharge Instructions Date of Service Jul 13, 2017. Admission Reason for Admission: Fracture Of Right Hip Discharge Discharge Diagnosis / Problem: Fracture of R hip Discharge Goals Goal(s): Decrease discomfort, Improve function, Increase independence, Improve disease control Activity Recommendations Activity Limitations: per Instructions/Follow-up section Lifting Limitations: no more than 25 pounds, gradually increase as tolerated Exercise/Sports Limitations: rest today, gradually increase as tolerated Shower/Bathe: no limitations (with assistance) Driving or Machine Use: DO NOT DRIVE . Instructions / Follow-Up Instructions / Follow-Up You were admitted to [facility] with R femoral hip fracture and diagnosed with the same. During your stay here you were treated with supportive care. You underwent surgical fixation by Dr. Mckenzie on 07/11. A follow up appointment will be scheduled within 1-2 weeks after discharge Cardiology determined you need to remain on aspirin for other heart comorbities and recent stent placement. Orthopedics agreed that aspirin 81 mg twice daily for DVT prophylaxis was adequate, so Lovenox was not prescribed. Repeat Bloodwork: Your Creatinine was 2.0 at time of discharge, follow up with recheck BMP tomorrow 07/14/17. You have been given a prescription for these labs to be drawn. Medications: You have been given a prescription for Tramadol 50 mg every 4 hours as needed for pain Take miralax and dulcolax tablets daily to help with constipation. Continue taking Aspirin 81 mg twice daily to prevent clot formation. Appointments: Follow up with your Primary Care Provider within 1 week. Follow up with orthopedics within 1-2 weeks. Current Hospital Diet Patient's current hospital diet: AHA Diet (Heart Healthy) Discharge Diet Recommended Diet: AHA Diet (Heart Healthy) Procedures Procedures Performed: ORIF Right Hip with 7.3 Cannulated Screw Pending Studies Studies pending at discharge: no Medical Emergencies . Who to Call and When: Medical Emergencies: If at any time you feel your situation is an emergency, please call 911 immediately. . Non-Emergent Contact Non-Emergency issues call your: Primary Care Provider Call Non-Emergent contact if: you have a fever, your pain is not controlled, your pain is worsening, your pain is unusual for you, your pain is concerning you, you have any medication questions you have other concerns. Call 911 if you experience chest pain, chest tightness, shortness of breath, abdominal pain, fever, chills, sweats. . Past History Medical & Surgical History: (1) Fracture of right hip . "Provider Documentation" section prepared by Val Thomason. . Vessel Specialist Recommendations Vessel Specialist Recommendations: U DISCHARGE INSTRUCTIONS: RIGHT HIP FRACTURE SELF CARE INSTRUCTIONS: A. You are to ambulate with a walker or crutches for approximately 6 weeks. B. You are WEIGHT BEARING TOLERATE on your operative lower extremity for at least 6 weeks. C. Wear low heeled shoes with non-slip soles D. Be sure that your floors are free of things that could trip you throw rugs, electrical cords, and small objects. Avoid wet and waxed floors, especially with crutches/walker/cane. E. Try to walk several times a day with rest periods between. F. You may shower 48 hours after surgery and get the incision area wet, but DO NOT soak or submerge incision area in water. (No baths, swimming pools, hot tubs ) G. You can change your dressing daily. If the wound is dry, you may change the dressing every other day. . H. Do NOT apply soap or any ointment/lotions directly over incision. I. You may use ice as needed to operative site. SPECIAL CARE INSTRUCTIONS: VERY IMPORTANT TO READ AND REVIEW A. You may be at risk for phlebitis or blood clots. a. Wear surgical stockings (JERICA hose) for 2 weeks after surgery to improve circulation and reduce swelling. b. Take Aspirin 81 mg twice daily for 4 weeks or as directed. This is your blood thinner. B. There are a few signs you need to watch for after you are home. Call [facility] at [phone] if you experience any of the following: a. If you have a temperature of 101 degrees or higher. b. Sudden increase in pain in your hip not relieved by rest or pain medication. c. Any fluid or drainage from the incision; redness of the incision. d. Shortness of breath or chest pain. C. Call your physician if: a. Temperature is greater than 101 degrees (F). b. Pain is not relieved by prescribed pain medications. c. Increase drainage or redness from incision. d. Unanswered questions or concerns. D. Pain Medication: a. You will be prescribed pain medication upon discharge that should last till your first post-operative appointment. b. If you experience nausea and/or skin rash, discontinue this medication and contact our office for an alternative medication. c. Caution- narcotic pain medication can cause constipation. FOLLOW UP VISIT: Please call [facility] (Dr Euceda) at [phone] to schedule a follow up appointment 10-14 days from the date of your surgery date. VTE Core Measure Inpt VTE Proph given/why not?: Other Anticoagulation, SCD's
[2017-07-13 10:26] LABS: HEMATOCRIT 39.3 % (42-52); MEAN CELL VOLUME 92.9 fL (80-100); MEAN CORPUSCULAR HGB CONC 32.3 g/dl (32-36); MEAN PLATELET VOLUME 11.5 fL (7.4-10.4); PLATELET COUNT 158 K/uL (130-400); RED BLOOD COUNT 4.23 M/uL (4.7-6.1); WHITE BLOOD COUNT 7.83 K/uL (4.8-10.8)
[2017-07-13 10:30] VITALS: BP 114/66; PULSE 60; TEMP 36.9; O2SAT 88
--- NOTE | 2017-07-13 10:47 | Discharge Summary ---
Discharge Summary Date of Service Jul 13, 2017. 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 COMPARISON: Right hip radiographs 04/17/2017 TECHNIQUE: AP view of the pelvis with 2 views of the right at FINDINGS: The pelvic ring is intact. Moderate severe osteoarthritis involves the left hip. Degenerative changes are seen within the lower lumbar spine. Vascular calcifications are noted. There is an acute nondisplaced and non-angulated transcervical fracture of the right proximal femur which appears comminuted. There is background moderate right hip osteoarthritis. IMPRESSION: 1. Acute nondisplaced and non-angulated transcervical fracture of the right femur. 2. Moderate to severe left and moderate right hip osteoarthritis. The above report was generated using voice recognition software. It may contain grammatical, syntax or spelling errors. Electronically signed by: Yunior López M.D. 07/10/2017 7:13 PM Dictated Date/Time: 07/10/2017 6:59 PM The status of this report is Signed. CHEST ONE VIEW PORTABLE HISTORY: 81 years-old Male preoperative exam. Right hip fracture. COMPARISON: Chest radiographs 01/23/2016 TECHNIQUE: Portable supine AP view of the chest FINDINGS: Cardiac silhouette is within normal limits. Prior median sternotomy with surgical clips projecting along the left mediastinal margin. There is atherosclerosis of the aorta. There is no pneumothorax, pleural effusion or focal airspace consolidation. The bones about the chest are grossly intact with advanced degenerative changes of the right shoulder. IMPRESSION: No acute cardiopulmonary process. The above report was generated using voice recognition software. It may contain grammatical, syntax or spelling errors. Electronically signed by: Yunior López M.D. 07/10/2017 7:25 PM Dictated Date/Time: 07/10/2017 7:24 PM The status of this report is Signed. INTRAOPERATIVE RIGHT HIP 2 VIEWS CLINICAL HISTORY: Right femoral neck fracture COMPARISON STUDY: Conventional radiographic study dated 07/10/2017 FLUOROSCOPY TIME: 64 seconds. NUMBER OF FLUOROSCOPIC IMAGES: 2 FINDINGS: 2 intraoperative fluoroscopic spot images demonstrate 3 cannulated screws traversing the right femoral neck. IMPRESSION: Internally fixated right femoral neck fracture utilizing 3 cannulated screws. Electronically signed by: Ja Ayala M.D. 07/11/2017 5:28 PM Dictated Date/Time: 07/11/2017 5:26 PM The status of this report is Signed. Consultations: Orthopedics (Judi Thomason, WU) Medication Reconciliation New Medications: Aspirin (Aspirin Low Strength) 81 Mg Chew 81 MG PO BID for 30 Days, #60 TAB Polyethylene (Miralax) 17 Gm Pow 17 GM PO DAILY for 30 Days, #30 DOSE Sennosides-Docusate Sodium (Senokot S) 1 Tab Tab 2 TAB PO HS for 30 Days, #60 TAB Tramadol HCl (Tramadol HCl) 50 Mg Tab 50 MG PO Q4H PRN for Pain for 7 Days, #28 TAB Continued Medications: Albuterol Soln (Proventil 0.083% 2.5MG/3ML) Nebu 2.5 MG INH QID PRN for Shortness of Breath, EA Albuterol Sulf (Albuterol Sulfate) 2.5 Mg/3 Ml Nebu 3 ML INH TID PRN for SOB/Wheezing Clopidogrel (Plavix) 75 Mg Tab 75 MG PO QAM, TAB Fluticasone Propionate Hfa (Flovent Hfa 110MCG Inhaler) 110 Mcg/ Aer 1 PUFF INH BID PRN for PRN, INH Isosorbide Dinitrate Ext Rel (Isordil Ext Rel) 40 Mg Tabcr 40 MG PO QAM, TAB Isosorbide Mononitrate Ext Rel (Imdur Ext Rel) 120 Mg Ertab 240 MG PO QAM Levothyroxine Sodium (Levothyroxine Sodium) 50 Mcg Tab 50 MCG PO QAM Lisinopril (Zestril) 5 Mg Tab 5 MG PO QAM, TAB Lorazepam (Ativan) 0.5 Mg Tab 0.5 MG PO DAILY PRN for Anxiety, TAB Nadolol (Corgard) 20 Mg Tab 30 MG PO QAM Take one and a half of a 20mg tablet Nitroglycerin (Nitrostat) 0.4 Mg Tab 0.4 MG UT UD PRN for Chest Pain, 0 Refills NEEDED FOR CHEST PAIN : PLACE ONE TABLET UNDER THE TONGUE EVERY 5 MINUTES FOR UP TO 3 DOSES. Rosuvastatin Calcium (Crestor) 40 Mg Tab 40 MG PO HS, TAB Tamsulosin Hcl (Flomax) 0.4 Mg Cap 0.4 MG PO QPM, CAP Discharge Exam The patient was seen and examined this morning. Pt reports was seen and examined this morning. He is doing well, and hopeful to be going home this morning. He still had the plaza catheter in place. He is eating well, no BM since Monday but pt reports he is chronically like this. Pt is agreeable to taking miralax. He plans to utilize outpatient PT/OT. Review of Systems: Constitutional: No fever, No chills, No sweats, No fatigue ENT: No sore throat, No trouble swallowing Respiratory: No cough, No shortness of breath, No dyspnea on exertion, No dyspnea at rest Cardiovascular: No chest pain, No palpitations Abdomen: No pain, No nausea, No vomiting, No diarrhea Musculoskeletal: No joint pain, No muscle pain, No calf pain Genitourinary - Male: No dysuria Neurologic: No numbness/tingling Psychiatric: No depression symptoms, No anxiety Endocrine: No fatigue Integumentary: No rash, No itch Physical Exam: General Appearance: WD/WN, no apparent distress, + thin Eyes: PERRL, EOMI ENT: hearing grossly normal, pharynx normal Neck: no adenopathy, no JVD Respiratory/Chest: chest non-tender, lungs clear, no respiratory distress, no accessory muscle use Cardiovascular: regular rate, rhythm, no murmur, normal peripheral pulses Abdomen / GI: normal bowel sounds, non tender, soft Extremities: normal inspection, no calf tenderness, + pertinent finding (R hip dressing C/D/I, + mild surround ecchymosis developing) Neurologic/Psychiatric: alert, oriented x 3 Skin: normal color, warm/dry (Judi Thomason, WU) Hospital Course History of Present Illness Source: patient, spouse 81 y/o M Hx severe CAD, CKD 3, HTN, COPD, BPH, hypothyroid. Pt hopped out of his truck bed today, landing on his R leg and sustaining an acute R femoral fracture. The pt denies symptoms aside form pain at the fracture site. He denies CP, SOB, N/V, dysuria Physical Exam Vital Signs Date Time Temp Pulse Resp B/P (MAP) Pulse Ox O2 Delivery O2 Flow Rate FiO2 07/10/17 18:13 56 22 122/72 93 Room Air 07/10/17 16:40 36.4 52 16 159/78 94 Room Air General Appearance: WD/WN (Frale elderly male in no acute distress) Head: normocephalic Eyes: normal inspection ENT: normal ENT inspection, hearing grossly normal, pharynx normal Neck: supple, no JVD Respiratory/Chest: chest non-tender, lungs clear Cardiovascular: regular rate, rhythm, no edema Abdomen/GI: normal bowel sounds, non tender, soft Back: normal inspection, no CVA tenderness Extremities/Musculoskelatal: + pertinent finding (Pain to palpation of the RLE - no rotation is present - pulses are palpable) Neurologic/Psych: dam tender II-XII nml as tested, no motor/sensory deficits, alert, + pertinent finding (Pt was slow to answer however he is oriented x 3 ) Skin: normal color, warm/dry, no rash Hospital Course 81 y/o M traumatic right femur fracture Hx severe CAD, CKD 3, HTN, COPD, BPH, hypothyroid. Recent cardiac intervention with stent is 6 months previous R femoral neck fracture - Pain management and bowel regimen on board - DVT ppx switched from lovenox to asa 81 mg bid after discussion with cardiology and orthopedics. - PT is POD #[address] Euceda - PT/OT per primary team - Pt plans for home health services as he is not interested in going to rehab, lives at home with his significant other. - Hgb remains stable CAD - Cardiology on board- in agreement to proceed with surgery. - Spoke with cardiology, Meryl Aldana PA-C- plan to restart ASA 81 mg this morning and continue plavix for dual antiplatelet therapy. Pt had most recent cardiac stent x 1 placed Dec 2016, he has a total of 3 stents placed. Follow[address] with Dr. Bartholomew as an outpatient. - Was on lovenox for DVT ppx while inpatient. - Continue rosuvastatin 10 mg - Continue nadolol 30 mg QAM COPD - stable only on albuterol, consider combivent or duonebs if needed CKD stage III - follow prp with anticipated volume loss - Cr. was 2.0 at time of discharge, baseline seems to be aroun 1.4. Pt was eating and drinking adequately. A script was provided to have BMP rechecked on 07/14 as this is a holiday weekend and labs will not be open Monday- Monday. Results should be faxed to Dr. Giordano. Hypothyroid - cont Synthroid BPH - Nursing could not pass plaza prior to surgical procedure so had an indwelling plaza placed by Dr. Junior, it was in place x 2 days. This was removed and pt was able to void prior to discharge home. HTN - Resume lisinopril and imdur at time of discharge. DVT ppx - SCDs, lovenox while inpatient and transitioned to asa 81 mg BID. CODE STATUS: FULL CODE Disposition: From home, d/c home today Total Time Spent: Greater than 30 minutes This includes examination of the patient, discharge planning, medication reconciliation, and communication with other providers. (Judi Thomason PA-C) KIMBER[facility] Physician Supervision Note: I interviewed and examined the patient. Discussed with Judi Thomason PAC and agree with findings and plan as documented in the note. Any exceptions or clarifications are listed here: None Patient has done remarkably well after his procedure he is going to be discharged home rather than go to rehabilitation. Vital signs are stable cardiovascular exams unremarkable he'll be discharged home to perform physical therapy and outpatient Center his family is updated at the bedside Documented By: Edward Noble (Edward Noble M.D.) Discharge Instructions Please refer to the electronic Patient Visit Report (Discharge Instructions) for additional information. (Judi Thomason PA-C) Follow-Up Follow up with your Primary Care Provider within 1 week. Follow up with orthopedics within 1-2 weeks, Dr. Mckenzie. (Judi Thomason PA-C) Additional Copies To Jaquan Giordano M.D.
[2017-07-13 10:50] LABS: BUN/CREATININE RATIO 15.4 (10-20); CALCIUM 8.9 mg/dl (8.5-10.1)
[2017-07-13] MEDS ORDERED: ASPCH81 PO (13:43)
[2017-08-24] MEDS ORDERED: ZNTT/150 PO (15:28)
== END 2017-07-13 14:41 | disposition home health service (06) | DRG 482 ==
LOC: C.EDB 16:28 → C.MSN 20:05 → ENRESERV 20:37
PROVIDERS: ADMIT Internal Medicine; ATTEND Internal Medicine
PROC: BQ13ZZZ Fluoroscopy of Right Femur (ICD-10-PCS; principal; 2017-07-11 15:30)
PROC: 0QS604Z Reposition Right Upper Femur with Internal Fixation Device, Open Approach (ICD-10-PCS; principal; 2017-07-11 15:30)
DX: S72.001A Fracture of unspecified part of neck of right femur, initial encounter for closed fracture (principal); W17.89XA Other fall from one level to another, initial encounter; Y92.812 Truck as the place of occurrence of the external cause; M16.0 Bilateral primary osteoarthritis of hip; I25.10 Atherosclerotic heart disease of native coronary artery without angina pectoris; J44.9 Chronic obstructive pulmonary disease, unspecified; I12.9 Hypertensive chronic kidney disease with stage 1 through stage 4 chronic kidney disease, or unspecified chronic kidney disease; N18.3 Chronic kidney disease, stage 3 (moderate); E03.9 Hypothyroidism, unspecified; N40.0 Benign prostatic hyperplasia without lower urinary tract symptoms; E78.5 Hyperlipidemia, unspecified; E11.22 Type 2 diabetes mellitus with diabetic chronic kidney disease; G47.33 Obstructive sleep apnea (adult) (pediatric); I25.2 Old myocardial infarction; Z95.1 Presence of aortocoronary bypass graft; Z98.61 Coronary angioplasty status; Z87.891 Personal history of nicotine dependence; Z79.02 Long term (current) use of antithrombotics/antiplatelets; Z79.82 Long term (current) use of aspirin; Z79.899 Other long term (current) drug therapy

== ENCOUNTER → 2017-07-14 | Outpatient (CLI) | payer BC, OTHER ==
[~2017-07-14] MED LIST changes: +ALBINS INH; +ASPCH81 PO; +FLVHFA110 INH; +ISOS120T5 PO; +ISOS60TA25 PO; +MRLP17X PO; +MRLP527 PO; +SENN-65 PO; +SENN8.6T7 PO; +ULT50 PO; +ULT50X PO; +ZNTT/150 PO
[2017-07-14 17:37] LABS: BLOOD UREA NITROGEN 28 mg/dl (7-18); BUN/CREATININE RATIO 15.5 (10-20); CALCIUM 8.9 mg/dl (8.5-10.1); CARBON DIOXIDE 28 mmol/L (21-32); CHLORIDE 102 mmol/L (98-107); GLUCOSE 126 mg/dl (70-99); SODIUM 137 mmol/L (136-145)
--- NOTE | 2017-07-28 12:07 | CODING QUERY NO DIAGNOSIS ---
TREATMENT RENDERED WITHOUT A DIAGNOSIS To promote full compliance with coding requirements relating to patient care, physician participation is requested in all cases of cloth layer uncertainty. Please assist us with providing a diagnosis/symptom for the test(s) below: A diagnosis/symptom was not documented on your Order. A valid diagnosis/symptom is required to bill all insurances. Please remember that we are unable to code a diagnosis of rule out, probable, possible, questionable, or suspected. Tests that require a diagnosis: * PARTIAL RENAL PROFILE DIAGNOSIS: Provider Signature: Date: Thank you Debbie Linn [employer] Once completed, please kindly fax back to [phone] For questions please call [phone]
== END | disposition home or self-care (01) ==
LOC: C.LABBFT 11:31
PROVIDERS: ATTEND Physician Assistant
DX: N17.9 Acute kidney failure, unspecified (principal); N18.3 Chronic kidney disease, stage 3 (moderate)

== ENCOUNTER → 2017-08-17 | Outpatient (CLI) | payer BC, OTHER ==
[~2017-08-17] MED LIST changes: -ZNTT/150 PO
[2017-08-17 12:38] LABS: HEMATOCRIT 39.5 % (42-52); MEAN CELL VOLUME 93.8 fL (80-100); MEAN CORPUSCULAR HEMOGLOBIN 31.6 pg (25-34); MEAN CORPUSCULAR HGB CONC 33.7 g/dl (32-36); MEAN PLATELET VOLUME 11.5 fL (7.4-10.4); PLATELET COUNT 197 K/uL (130-400); RED BLOOD COUNT 4.21 M/uL (4.7-6.1); WHITE BLOOD COUNT 6.32 K/uL (4.8-10.8)
[2017-08-17 13:43] LABS: ALT/SGPT 13 U/L (12-78); AST/SGOT 19 U/L (15-37); BLOOD UREA NITROGEN 17 mg/dl (7-18); BUN/CREATININE RATIO 10.5 (10-20); CALCIUM 9.6 mg/dl (8.5-10.1); CARBON DIOXIDE 28 mmol/L (21-32); CHLORIDE 104 mmol/L (98-107); CHOLESTEROL 150 mg/dl (0-200); GLUCOSE 127 mg/dl (70-99); POTASSIUM 4.3 mmol/L (3.5-5.1); SODIUM 138 mmol/L (136-145)
[2017-08-17 13:46] LABS: CHOLESTEROL/HDL RATIO 3.5; HDL CHOLESTEROL 43 mg/dl; LDL CHOLESTEROL CALCULATED 74 mg/dl; TRIGLYCERIDES 166 mg/dl (0-150); VERY LOW DENSITY LIPOPROT CALC 33 mg/dl
== END | disposition home or self-care (01) ==
LOC: C.LABBFT 08:56
PROVIDERS: ATTEND Internal Medicine Cardiovascular Disease
DX: E78.5 Hyperlipidemia, unspecified (principal); I10 Essential (primary) hypertension; I25.10 Atherosclerotic heart disease of native coronary artery without angina pectoris; R07.9 Chest pain, unspecified

== ENCOUNTER 2017-08-23 09:38 | Observation (INO) | payer BC, OTHER ==
[~2017-08-23] VITALS: Ht 165.1 cm; Wt 53.3 kg
[~2017-08-23 09:38] MED LIST changes: -ASPI81TA28 PO; -FLVHFA110 INH; -ISOS60TA25 PO; -MRLP527 PO; -SENN-65 PO; -ULT50 PO
--- NOTE | 2017-08-23 10:22 | DIAGNOSTIC IMAGING REPORT ---
CHEST ONE VIEW PORTABLE HISTORY: chest tightness COMPARISON: Chest 07/10/2017. FINDINGS: Poststernotomy changes are again noted. There are few punctate calcified granulomas within the right lung. The lungs are otherwise clear. No pleural effusions. No pneumothorax. The heart is normal in size. IMPRESSION: No significant change compared to the prior study. No acute process. Electronically signed by: Ulises Whitaker M.D. 08/23/2017 10:20 AM Dictated Date/Time: 08/23/2017 10:19 AM
[2017-08-23] MEDS ORDERED: SODIUM CHLORIDE 0.9% 500ML 500 ML IV STA (10:23)
[2017-08-23] MEDS ORDERED: SODIUM CHLORIDE 0.9% 1000ML 1,000 ML IV STA (10:23)
[2017-08-23 10:30] LABS: HEMATOCRIT 36.2 % (42-52); MEAN CELL VOLUME 92.6 fL (80-100); MEAN CORPUSCULAR HEMOGLOBIN 30.7 pg (25-34); MEAN CORPUSCULAR HGB CONC 33.1 g/dl (32-36); MEAN PLATELET VOLUME 11.2 fL (7.4-10.4); PLATELET COUNT 156 K/uL (130-400); RED BLOOD COUNT 3.91 M/uL (4.7-6.1); WHITE BLOOD COUNT 5.56 K/uL (4.8-10.8)
[2017-08-23 10:43] LABS: INR 1.1 (0.9-1.1); PARTIAL THROMBOPLASTIN RATIO 0.8; PROTHROMBIN TIME (PATIENT) 11.4 SECONDS (9.0-12.0)
[2017-08-23 10:50] LABS: BUN/CREATININE RATIO 14.1 (10-20); CALCIUM 9.2 mg/dl (8.5-10.1); CREATININE 1.7 mg/dl (0.60-1.40); MAGNESIUM 2.5 mg/dl (1.8-2.4); POTASSIUM 3.8 mmol/L (3.5-5.1)
[2017-08-23 10:59] LABS: ALB/GLOB RATIO 0.7 (0.9-2); THYROID STIMULATING HORMONE 3.9 uIu/ml (0.300-4.500)
--- NOTE | 2017-08-23 11:14 | EMERGENCY ROOM VISIT NOTE ---
History Report prepared by Keiyr: Shadia Donaldson Under the Supervision of: Dr. Darek Mitchell M.D. First contact with patient: 10:14 Chief Complaint: WEAKNESS Stated Complaint: MAUSEA/CHEST TIGHTNESS History of Present Illness The patient is a 81 year old male who presents to the Emergency Room with complaints of an episode of chest pain beginning [employer]. The patient states that he has felt generally weak for some time. He states that he has had "no energy all summer." Today he was feeling weak and nauseated. He developed tightness in his chest. He states that this tightness has slowly improved. He was not doing anything when this pain started, he was just sitting down. The patient reports some shortness of breath with his pain. He was brought to the ED by ambulance. He received 324 mg of aspirin en route. Upon arrival in the ED the patient rates his pain as a 3/10 in severity. He has a history of an DC and triple bypass surgery. He did not take any nitro today. The patient denies and fevers or vomiting. He does report a lack of appetite and recent weight loss. Source of History: patient Onset: [employer] Position: chest Symptom Intensity: 3/10 Quality: other (tightness) Timing: other (episode) Modifying Factors (Relieving): other (time) Associated Symptoms: + SOB, + nausea, + weakness, No fevers, No vomiting Review of Systems See HPI for pertinent positives & negatives. A total of 10 systems reviewed and were otherwise negative. Past Medical & Surgical Medical Problems: (1) Acute coronary syndrome (2) Ambulatory dysfunction (3) Anxiety Disorder, Unspecified (4) Asthma, Unspecified (5) CAD (coronary artery disease) (6) Chest pain (7) Cough (8) Cough (9) Dehydration (10) Diabetes (11) Dizziness (12) Dyspnea (13) Dyspnea (14) Emphysema, Unspecified (15) Heart disease (16) Hyperlipidemia, Unspecified (17) Hypertension Nos (18) Hypertensive Chronic Kidney Disease W Stg 1-4/Unsp Chr Kdny (19) Hypothyroidism, Unspecified (20) Influenza (21) Intractable vomiting (22) Non-STEMI (non-ST elevated myocardial infarction) (23) NSTEMI, initial episode of care (24) Weakness Surgical Problems: (1) H/O heart bypass surgery (2) Percutaneous Translum Coron Angioplasty Status Family History No pertinent family history Social History Smoking Status: Former Smoker Marital Status: in relationship Housing Status: lives with significant other Occupation Status: retired Current/Historical Medications Scheduled Aspirin (Aspirin Ec), 81 MG PO DAILY Clopidogrel (Plavix), 75 MG PO QAM Isosorbide Mononitrate Ext Rel (Imdur Ext Rel), 2 TAB PO QAM Levothyroxine Sodium (Levothyroxine Sodium), 50 MCG PO QAM Nadolol (Corgard), 1.5 TAB PO QAM Polyethylene (Polyethylene Glycol 3350), 17 GM PO DAILY Rosuvastatin Calcium (Crestor), 40 MG PO HS Tamsulosin Hcl (Flomax), 0.4 MG PO QPM Scheduled PRN Albuterol Sulf (Albuterol Sulfate), 3 ML INH TID PRN for SOB/Wheezing Fluticasone Propionate (Flovent Hfa), 2 PUFFS INH BID PRN for SOB/Wheezing Lorazepam (Ativan), 0.5 MG PO DAILY PRN for Anxiety Nitroglycerin (Nitrostat), 0.4 MG UT UD PRN for Chest Pain Senna/Docusate Sod (Senokot S), 1 TAB PO for Constipation Tramadol HCl (Tramadol HCl), 1 TAB PO HS PRN for Pain Allergies Coded Allergies: No Known Allergies (Verified , 08/23/17) Physical Exam Vital Signs Date Time Temp Pulse Resp B/P (MAP) Pulse Ox O2 Delivery O2 Flow Rate FiO2 08/23/17 13:16 60 18 126/65 96 08/23/17 13:07 57 08/23/17 11:30 74 20 122/99 99 Room Air 08/23/17 11:19 97 Room Air 08/23/17 09:51 95 Room Air 08/23/17 09:51 36.9 50 20 113/71 97 Room Air 08/23/17 09:50 55 Physical Exam GENERAL: Patient is in no acute distress. Frail and quite thin. HEENT: No acute trauma, normocephalic atraumatic, mucous membranes moist, no nasal congestion, no scleral icterus. NECK: No stridor, no adenopathy, no meningismus, trachea is midline. LUNGS: Clear to auscultation bilaterally, no wheeze, no rhonchi, breath sounds equal. HEART: Without murmurs gallops or rubs, regular rate and rhythm. ABDOMEN: Soft, nontender, bowel sounds positive, no hernias, no peritonitis. EXTREMITIES: No cyanosis or edema, full range of motion of all the joints without pain or difficulty, no signs for acute trauma. NEUROLOGIC: Oriented x 3, no acute motor or sensory deficits, no focal weakness. SKIN: No rash, no jaundice, no diaphoresis. Medical Decision & Procedures ER Provider Diagnostic Interpretation: Radiology results as stated below per my review and radiologist interpretation: CHEST ONE VIEW PORTABLE HISTORY: chest tightness COMPARISON: Chest 07/10/2017. FINDINGS: Poststernotomy changes are again noted. There are few punctate calcified granulomas within the right lung. The lungs are otherwise clear. No pleural effusions. No pneumothorax. The heart is normal in size. IMPRESSION: No significant change compared to the prior study. No acute process. Electronically signed by: Ulises Whitaker M.D. 08/23/2017 10:20 AM Dictated Date/Time: 08/23/2017 10:19 AM Laboratory Results 08/23/17 10:15 08/23/17 10:15 Test 08/23/17 10:15 08/23/17 10:24 Red Blood Count 3.91 M/uL (4.7-6.1) Mean Corpuscular Volume 92.6 fL (80-100) Mean Corpuscular Hemoglobin 30.7 pg (25-34) Mean Corpuscular Hemoglobin Concent 33.1 g/dl (32-36) RDW Standard Deviation 53.2 fL (36.4-46.3) RDW Coefficient of Variation 15.7 % (11.5-14.5) Mean Platelet Volume 11.2 fL (7.4-10.4) Prothrombin Time 11.4 SECONDS (9.0-12.0) Prothromb Time International Ratio 1.1 (0.9-1.1) Activated Partial Thromboplast Time 21.9 SECONDS (21.0-31.0) Partial Thromboplastin Ratio 0.8 Anion Gap 8.0 mmol/L (3-11) Est Creatinine Clear Calc Drug Dose 27.0 ml/min Estimated GFR () 43.5 Estimated GFR (Non- 37.5 BUN/Creatinine Ratio 14.1 (10-20) Calcium Level 9.2 mg/dl (8.5-10.1) Magnesium Level 2.5 mg/dl (1.8-2.4) Total Bilirubin 0.6 mg/dl (0.2-1) Aspartate Amino Transf (AST/SGOT) 19 U/L (15-37) Alanine Aminotransferase (ALT/SGPT) 10 U/L (12-78) Alkaline Phosphatase 73 U/L (45-117) Total Creatine Kinase 44 U/L (39-308) Creatine Kinase MB 0.9 ng/ml (0.5-3.6) Creatine Kinase MB Ratio 2.0 (0-3.0) Total Protein 6.9 gm/dl (6.4-8.2) Albumin 2.9 gm/dl (3.4-5.0) Globulin 4.0 gm/dl (2.5-4.0) Albumin/Globulin Ratio 0.7 (0.9-2) Thyroid Stimulating Hormone (TSH) 3.900 uIu/ml (0.300-4.500) Free Thyroxine 1.42 ng/dl (0.80-1.60) Bedside Troponin I < 0.030 ng/ml (0-0.045) Laboratory results reviewed by me. Medications Administered Medications (Trade) Dose Ordered Sig/Eboni Route Start Time Stop Time Status Last Admin Dose Admin Sodium Chloride 500 ml @ 999 mls/hr Q31M STAT IV 08/23/17 10:23 08/23/17 10:53 DC 08/23/17 10:58 999 MLS/HR Sodium Chloride 1,000 ml @ 125 mls/hr Q8H STAT IV 08/23/17 10:23 08/23/17 18:22 08/23/17 11:29 125 MLS/HR ECG Indication: chest pain Rate (beats per minute): 57 Rhythm: sinus bradycardia Findings: T-wave inversion (lateral and inferior), no acute ischemic change Comparison ECG Date: 07/10/17 Change: no significant change ED Course 1014: The patient was evaluated in room C3. A complete history and physical exam was performed. 1023: NSS 1000 ml @ 125 mls/hr IV, NSS 500 ml @ 999 ml/shr IV 1107: I reassessed the patient at this time. He is feeling better and resting comfortably. I discussed the results and treatment plan with the patient. I answered all pertaining questions that he had. He expressed understanding and verbalized agreement. 1124: I spoke with Dr. Harris. We discussed the patients case. The patient will be evaluated by the [facility] for further management. Medical Decision Differential diagnoses includes debilitation, malignancy, DC, angina, anemia, electrolyte imbalance, UTI, infection, dehydration. There is no leukocytosis or concerning anemia. No significant electrolyte abnormality or hepatitis. There was renal insufficiency present, this is baseline. EKG shows sinus bradycardia, no acute ischemic change. Cardiac enzyme testing 1 is not consistent with acute cardiac injury. Chest x-ray does not show pneumonia, mediastinal widening or CHF. The patient presents with weakness, chest tightness and nausea. He does have a cardiac history. Further cardiac workup is warranted. The patient did receive IV saline, he had already received aspirin prior to arrival. I did speak to the patient and case management. The on-call hospitalist was consulted. Medication Reconcilliation Current Medication List: was personally reviewed by me Blood Pressure Screening Patient's blood pressure: Elevated blood pressure Blood pressure disposition: Elevated BP felt to be situational Consults Time Called: 1120 Consulting Physician: Dr. Harris Returned Call: [phone] Harris. We discussed the patients case. The patient will be evaluated by the [facility] for further management. Impression Primary Impression: Precordial chest pain Additional Impression: Weakness Scribe Attestation The scribe's documentation has been prepared under my direction and personally reviewed by me in its entirety. I confirm that the note above accurately reflects all work, treatment, procedures, and medical decision making performed by me. Departure Information Dispostion Being Evaluated By Hospitalist Referrals Jaquan Giordano M.D. (PCP) Patient Instructions My [facility] Problem Qualifiers
[2017-08-23 11:19] VITALS: O2SAT 97; Ht 165.1 cm; Wt 53.3 kg
[2017-08-23] MEDS ORDERED: ISOS60TA25 PO (11:29)
[2017-08-23] MEDS ORDERED: ULT50 PO (11:29)
[2017-08-23] MEDS ORDERED: SENN-65 PO (11:29)
[2017-08-23] MEDS ORDERED: ASPI81TA28 PO (11:29)
[2017-08-23] MEDS ORDERED: MRLP527 PO (11:29)
[2017-08-23] MEDS ORDERED: FLVHFA110 INH (11:30)
--- NOTE | 2017-08-23 11:47 | History and Physical ---
History & Physical Date & Time of Service: Aug 23, 2017 at 11:47 Chief Complaint: Mausea/Chest Tightness Primary Care Physician: Jaquan Giordano M.D. History of Present Illness Source: patient, hospital records The patient is a 81-year-old male who presents emergency department by EMS with complaint of precordial chest pain, generalized weakness and intermittent nausea that began prior to arrival. He reports a lack of energy and motivation all summer. This morning he developed tightness in his chest that has slowly improved, and has resolved by the time I have seen him in the emergency department. He reports a decreased oral intake and weight loss over the summer as well. Past Medical/Surgical History Medical Problems: (1) Acute coronary syndrome Status: Resolved (2) Ambulatory dysfunction Status: Resolved (3) Anxiety Disorder, Unspecified Status: Chronic (4) Asthma, Unspecified Status: Chronic (5) CAD (coronary artery disease) Status: Chronic (6) Chest pain Status: Resolved (7) Cough Status: Resolved (8) Cough Status: Resolved (9) Dehydration Status: Resolved (10) Diabetes Status: Chronic (11) Dizziness Status: Resolved (12) Dyspnea Status: Resolved (13) Dyspnea Status: Resolved (14) Emphysema, Unspecified Status: Chronic (15) Heart disease Status: Chronic (16) Hyperlipidemia, Unspecified Status: Chronic (17) Hypertension Nos Status: Chronic (18) 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 (19) Hypothyroidism, Unspecified Status: Chronic (20) Influenza Status: Resolved (21) Intractable vomiting Status: Resolved (22) Non-STEMI (non-ST elevated myocardial infarction) Status: Resolved (23) NSTEMI, initial episode of care Status: Resolved Surgical Problems: (1) H/O heart bypass surgery Status: Resolved (2) Percutaneous Translum Coron Angioplasty Status Status: Resolved Family History No pertinent family history Social History Smoking Status: Former Smoker Smokeless Tobacco Use: No Alcohol Use: none Drug Use: none Marital Status: in relationship Housing status: lives with significant other Occupational Status: retired Immunizations History of Influenza Vaccine: Unknown Influenza Vaccine Date: Sep 08, 2007 History of Tetanus Vaccine?: Unknown History of Pneumococcal: Unknown Pneumococcal Date: Aug 13, 2007 History of Hepatitis B Vaccine: Unknown Multi-Drug Resistant Organisms History of MDRO: No Allergies Coded Allergies: No Known Allergies (Verified , 08/23/17) Home Medications Scheduled Aspirin (Aspirin Ec), 81 MG PO DAILY Clopidogrel (Plavix), 75 MG PO QAM Isosorbide Mononitrate Ext Rel (Imdur Ext Rel), 2 TAB PO QAM Levothyroxine Sodium (Levothyroxine Sodium), 50 MCG PO QAM Nadolol (Corgard), 1.5 TAB PO QAM Polyethylene (Polyethylene Glycol 3350), 17 GM PO DAILY Rosuvastatin Calcium (Crestor), 40 MG PO HS Tamsulosin Hcl (Flomax), 0.4 MG PO QPM Scheduled PRN Albuterol Sulf (Albuterol Sulfate), 3 ML INH TID PRN for SOB/Wheezing Fluticasone Propionate (Flovent Hfa), 2 PUFFS INH BID PRN for SOB/Wheezing Lorazepam (Ativan), 0.5 MG PO DAILY PRN for Anxiety Nitroglycerin (Nitrostat), 0.4 MG UT UD PRN for Chest Pain Senna/Docusate Sod (Senokot S), 1 TAB PO for Constipation Tramadol HCl (Tramadol HCl), 1 TAB PO HS PRN for Pain Review of Systems The patient denies palpitations, cough, lower extremity swelling, vision change , hearing change, sore throat, fevers, chills, sweats, weight change, vomiting, diarrhea or constipation, abdominal pain, pelvic pain, blood in urine or stool, dysuria, urinary frequency or urgency, lightheadedness , dizziness, headache, memory loss, rash, abnormal bruising or bleeding, imbalance, focal weakness, numbness or tingling in arms or legs, generalized arthralgias or myalgias, back or neck pain, or night sweats. The review of systems is otherwise negative other than for that already noted above, and at least 10 systems have been reviewed. Physical Exam Vital Signs Date Time Temp Pulse Resp B/P (MAP) Pulse Ox O2 Delivery O2 Flow Rate FiO2 08/23/17 11:30 74 20 122/99 99 Room Air 08/23/17 11:19 97 Room Air 08/23/17 09:51 95 Room Air 08/23/17 09:51 36.9 50 20 113/71 97 Room Air 08/23/17 09:50 55 The patient is awake, well-developed and adequately nourished, alert and oriented 3, normocephalic and atraumatic, lying in bed and in no acute distress. HEENT--PERRL, EOMI, mucous membranes and oropharynx dry. Neck--supple, no JVD or bruits, thyroid normal, trachea midline, no adenopathy. Heart--normal S1 and S2, no extra beats, no murmurs, rubs or gallops. Lungs--clear bilaterally with good air movement, no respiratory distress, no accessory muscle use. Abdomen--normal bowel sounds and soft, nontender and nondistended, no hernias or masses, no organomegaly. Extremities--no cyanosis, clubbing or edema. There are good distal pulses b/l. Dermatologic--normal skin turgor, normal color, warm and dry, no abnormal lymph nodes, no rash. Neurologic--cranial nerves II through XII grossly intact, motor and sensory examination normal. Rheumatologic--normal range of motion, nontender, muscles and joints. Psychiatric--normal affect. Diagnostics Laboratory Results Results Past 24 Hours Test 08/23/17 10:15 Range/Units White Blood Count 5.56 4.8-10.8 K/uL Red Blood Count 3.91 4.7-6.1 M/uL Hemoglobin 12.0 14.0-18.0 g/dL Hematocrit 36.2 42-52 % Mean Corpuscular Volume 92.6 80-100 fL Mean Corpuscular Hemoglobin 30.7 25-34 pg Mean Corpuscular Hemoglobin Concent 33.1 32-36 g/dl RDW Standard Deviation 53.2 36.4-46.3 fL RDW Coefficient of Variation 15.7 11.5-14.5 % Platelet Count 156 130-400 K/uL Mean Platelet Volume 11.2 7.4-10.4 fL Prothrombin Time 11.4 9.0-12.0 SECONDS Prothromb Time International Ratio 1.1 0.9-1.1 Activated Partial Thromboplast Time 21.9 21.0-31.0 SECONDS Partial Thromboplastin Ratio 0.8 Sodium Level 142 136-145 mmol/L Potassium Level 3.8 3.5-5.1 mmol/L Chloride Level 107 98-107 mmol/L Carbon Dioxide Level 26 21-32 mmol/L Anion Gap 8.0 3-11 mmol/L Blood Urea Nitrogen 24 7-18 mg/dl Creatinine 1.70 0.60-1.40 mg/dl Est Creatinine Clear Calc Drug Dose 27.0 ml/min Estimated GFR () 43.5 Estimated GFR (Non- 37.5 BUN/Creatinine Ratio 14.1 10-20 Random Glucose 97 70-99 mg/dl Calcium Level 9.2 8.5-10.1 mg/dl Magnesium Level 2.5 1.8-2.4 mg/dl Total Bilirubin 0.6 0.2-1 mg/dl Aspartate Amino Transf (AST/SGOT) 19 15-37 U/L Alanine Aminotransferase (ALT/SGPT) 10 12-78 U/L Alkaline Phosphatase 73 45-117 U/L Total Creatine Kinase 44 39-308 U/L Creatine Kinase MB 0.9 0.5-3.6 ng/ml Creatine Kinase MB Ratio 2.0 0-3.0 Total Protein 6.9 6.4-8.2 gm/dl Albumin 2.9 3.4-5.0 gm/dl Globulin 4.0 2.5-4.0 gm/dl Albumin/Globulin Ratio 0.7 0.9-2 Thyroid Stimulating Hormone (TSH) 3.900 0.300-4.500 uIu/ml Free Thyroxine 1.42 0.80-1.60 ng/dl Diagnostic Radiology Patient Name: DONELL WERNER Unit Number: [id number] Dictated: 08/23/171018 Transcribed: 08/23/171018 [employer] Printed Date/Time: [~ rep prt dt]/[~ rep prt tm] [~ rep ct labl] - [~ rep ct ivnm] [facility] [place] [address] Dictated: 08/23/171018 Transcribed: 08/23/171018 PAJ Printed Date/Time: [~ rep prt dt]/[~ rep prt tm] [~ rep ct labl] - [~ rep ct ivnm] CHEST ONE VIEW PORTABLE HISTORY: chest tightness COMPARISON: Chest 07/10/2017. FINDINGS: Poststernotomy changes are again noted. There are few punctate calcified granulomas within the right lung. The lungs are otherwise clear. No pleural effusions. No pneumothorax. The heart is normal in size. IMPRESSION: No significant change compared to the prior study. No acute process. Electronically signed by: Ulises Whitaker M.D. 08/23/2017 10:20 AM Dictated Date/Time: 08/23/2017 10:19 AM The status of this report is Signed. Draft = Not yet reviewed or approved by Radiologist. Signed = Reviewed and approved by Radiologist. <AttendingPhy></AttendingPhy> <FamilyPhy>Jaquan Giordano M.D.</FamilyPhy> < PrimaryPhy>Jaquan Giordano M.D.</PrimaryPhy> <UnitNumber>[id number]</UnitNumber > <VisitNumber>[id number]</VisitNumber> <PatientName>DONELL WERNER Risa</ PatientName> <DateOfBirth>1935</DateOfBirth> <Location>[facility]</Location> < ServiceDate>08/23/17</ServiceDate> <MNE>ESINDI</MNE> <OrderingPhy>ED, PROTOCOL</ OrderingPhy> <OrderingPhyMNE>f rep ord dr montez</OrderingPhyMNE> <DictatingPhyMNE> f rep dict dr montez</DictatingPhyMNE> <CCListMNE>f rep ct melida</CCListMNE> < AdmittingPhyMNE>f pt admit dr montez</AdmittingPhyMNE> <AttendingPhyMNE>f pt attend dr montze</AttendingPhyMNE> <ConsultingPhyMNE>f pt consult dr montez</ConsultingPhyMNE> <FamilyPhyMNE>f pt fam dr montez</FamilyPhyMNE> <OtherPhyMNE>f pt other dr montez</OtherPhyMNE> < PrimaryPhyMNE>f pt prim care dr montez</PrimaryPhyMNE> <ReferringPhyMNE>f pt referring dr montez</ReferringPhyMNE> EKG EKG shows sinus bradycardia at 57 bpm, old inferior wall NH, nonspecific T-wave changes in leads V3 through 6. Impression Assessment and Plan Precordial chest pain/CAD/hypertension/history of NH-- The patient will be admitted to telemetry for serial cardiac enzymes, cardiac rhythm monitoring and a 2-D echocardiogram with Dopplers. Continue aspirin 81 mg by mouth twice a day, clopidogrel 75 mg by mouth every morning, Imdur extended release 280 mg every morning, lisinopril 5 mg every morning, and nadolol 30 mg every morning. Hyperlipidemia--continue rosuvastatin 40 mg at bedtime. Hypothyroidism--continue levothyroxine sodium 50 g every morning. BPH--continue tamsulosin 0.4 mg by mouth every evening. Constipation--continue MiraLAX and Senokot-S. Level of Care Telemetry Advanced Directives Existing Advance Directive: Yes Existing Living Will: Yes Existing Power of Recovery Rn: Yes (DAISY [id number]) Resuscitation Status FULL RESUSCITATION VTE Prophylaxis Risk Level: Moderate Given or contraindicated: SCD's Social Service Consult None Apply
[2017-08-23] MEDS ORDERED: DOCUSATE SODIUM/SENNA 50/8.6MG TAB PO PRN (12:00)
[2017-08-23] MEDS ORDERED: ACETAMINOPHEN 325 MG TAB PO PRN (12:00)
[2017-08-23] MEDS ORDERED: NITROGLYCERIN 0.4 MG SL PER TAB CHARGE SL PRN (12:00)
[2017-08-23] MEDS ORDERED: LORAZEPAM 0.5 MG TAB PO PRN (12:00)
[2017-08-23] MEDS ORDERED: FLUTICASONE HFA 110MCG INHALER INH PRN (12:00)
[2017-08-23] MEDS ORDERED: ALBUTEROL 0.083% NEBU SOLN 3 ML VIAL INH PRN (12:00)
[2017-08-23] MEDS ORDERED: NITROGLYCERIN 0.4 MG SL PER TAB CHARGE UT PRN (12:00)
[2017-08-23] MEDS ORDERED: MoRPHine SULFATE 2 MG/ML CARP IV PRN (12:00)
[2017-08-23] MEDS ORDERED: ONDANSETRON INJ 2 MG/ML 2 ML VIAL IV PRN (12:00)
[2017-08-23] MEDS ORDERED: TRAMADOL HCL 50 MG TAB PO PRN (12:00)
[2017-08-23 13:57] VITALS: BP 155/74; TEMP 36.4; O2SAT 98
[2017-08-23] MEDS ORDERED: INFLUENZA VACCINE HIGH DOSE 65+ 0.5 ML SYR IM. ONE (14:30)
[2017-08-23] MEDS ORDERED: INFLUENZA ADMINISTRATION CHARGE ONE (14:30)
[2017-08-23] MEDS: SODIUM CHLORIDE 0.9% 1000ML 1,000 ML IV SCH (14:48)
[2017-08-23 15:30] VITALS: BP 129/67; PULSE 62; TEMP 36.4; O2SAT 94
[2017-08-23 16:00] VITALS: O2SAT 94
[2017-08-23] MEDS ORDERED: IV FLUIDS COMPLETED PRN (16:30)
[2017-08-23 16:49] LABS: URINE APPEARANCE CLOUDY (CLEAR); URINE COLOR DK YELLOW; URINE EPITHELIAL CELL AUTO >30 /lpf (0-5); URINE NITRITE NEG (NEG); URINE SPECIFIC GRAVITY 1.026 (1.000-1.030); UROBILINOGEN NEG (NEG)
[2017-08-23 17:03] LABS: MANUAL MICROSCOPIC REQUIRED? NO; REVIEW REQ? YES; URINE BILIRUBIN NEG (NEG)
[2017-08-23 17:13] LABS: URINE PATH CASTS 5-10 GRANULAR CASTS /lpf (0)
[2017-08-23 19:39] VITALS: BP 119/71; PULSE 56; TEMP 36.7; O2SAT 96
[2017-08-23 20:00] VITALS: O2SAT 94
[2017-08-23 20:46] LABS: CKMB/CK RATIO 2.9 (0-3.0)
[2017-08-23] MEDS ORDERED: ROSUVASTATIN CALCIUM 20 MG TAB PO SCH (21:00)
[2017-08-23] MEDS ORDERED: TAMSULOSIN HCL 0.4 MG CAP PO SCH (21:00)
[2017-08-24] VITALS (7 sets, daily range): BP systolic 119–146; BP diastolic 67–80; PULSE 56–61; TEMP 36.7–36.8; O2SAT 94–98
[2017-08-24] MEDS: SODIUM CHLORIDE 0.9% 1000ML 1,000 ML IV SCH (03:10)
[2017-08-24 04:18] LABS: BASO % 0.6 %; BASO ABS # 0.03 K/uL (0-0.2); COMPLETE YES; EOS % 3.4 %; HEMATOCRIT 34.5 % (42-52); IG% 0.2 %; LYMPH % 34.8 %; LYMPH ABS # 1.63 K/uL (1.2-3.4); MEAN CELL VOLUME 92.7 fL (80-100); MEAN CORPUSCULAR HEMOGLOBIN 29.8 pg (25-34); MEAN CORPUSCULAR HGB CONC 32.2 g/dl (32-36); MEAN PLATELET VOLUME 11.2 fL (7.4-10.4); MONO % 10.2 %; NEUT % 50.8 %; PLATELET COUNT 135 K/uL (130-400); RED BLOOD COUNT 3.72 M/uL (4.7-6.1); WHITE BLOOD COUNT 4.69 K/uL (4.8-10.8)
[2017-08-24 04:36] LABS: BUN/CREATININE RATIO 14.2 (10-20); CREATININE 1.4 mg/dl (0.60-1.40); MAGNESIUM 2.4 mg/dl (1.8-2.4)
[2017-08-24 04:42] LABS: CKMB/CK RATIO 2.9 (0-3.0)
[2017-08-24] MEDS ORDERED: LEVOTHYROXINE 50 MCG TAB PO SCH (06:30)
[2017-08-24] MEDS ORDERED: NADOLOL 40 MG TAB PO SCH (09:00)
[2017-08-24] MEDS ORDERED: CLOPIDOGREL BISULFATE 75 MG TAB PO SCH (09:00)
[2017-08-24] MEDS ORDERED: ISOSORBIDE MONONITRATE 60 MG TABCR PO SCH (09:00)
[2017-08-24] MEDS ORDERED: ASPIRIN 81 MG ECTAB PO SCH (09:00)
[2017-08-24] MEDS ORDERED: POLYETHYLENE (MIRALAX) 17 GM PACK PO SCH (09:00)
[2017-08-24] MEDS ORDERED: RANITIDINE HCL 150 MG TAB PO ONE (13:00)
[2017-08-24] MEDS ORDERED: ZNTT/150 PO (15:28)
--- NOTE | 2017-08-24 15:30 | Discharge Instructions ---
Discharge Instructions Date of Service Aug 24, 2017. Admission Reason for Admission: Chest Pain, Weakness Discharge Discharge Diagnosis / Problem: Chest pain Discharge Goals Goal(s): Decrease discomfort, Improve function, Increase independence, Improve disease control, Learn about illness, Diagnostic testing, Therapeutic intervention, Prevent Disease Progression Activity Recommendations Activity Limitations: resume your previous activity Exercise/Sports Limitations: as tolerated . Instructions / Follow-Up Instructions / Follow-Up Patient to be discharged home Admitted with atypical chest pain likely related to reflux Prescription sent to pharmacy for ranitidine 150 mg by mouth twice a day No further changes in medications Please follow up with Dr Giordano in 1-2 weeks If worsening chest pain, please report to ER Current Hospital Diet Patient's current hospital diet: AHA Diet (Heart Healthy) Discharge Diet Recommended Diet: AHA Diet (Heart Healthy) Pending Studies Studies pending at discharge: no Laboratory Results Lipid Panel Test 08/17/17 08:59 Range/Units Triglycerides Level 166 H 0-150 mg/dl Cholesterol Level 150 0-200 mg/dl HDL Cholesterol 43 mg/dl Cholesterol/HDL Ratio 3.5 LDL Cholesterol, Calculated 74 mg/dl Medical Emergencies . Who to Call and When: Medical Emergencies: If at any time you feel your situation is an emergency, please call 911 immediately. . Non-Emergent Contact Non-Emergency issues call your: Primary Care Provider Call Non-Emergent contact if: you have any medication questions . . "Provider Documentation" section prepared by Juan Jose Lamar. . VTE Core Measure Inpt VTE Proph given/why not?: Other Anticoagulation, SCD's
--- NOTE | 2017-08-24 17:05 | Discharge Instructions ---
Discharge Instructions Date of Service Aug 24, 2017. Admission Reason for Admission: Chest Pain, Weakness Discharge Discharge Diagnosis / Problem: P Activity Recommendations . Current Hospital Diet Patient's current hospital diet: AHA Diet (Heart Healthy) Laboratory Results Lipid Panel Test 08/17/17 08:59 Range/Units Triglycerides Level 166 H 0-150 mg/dl Cholesterol Level 150 0-200 mg/dl HDL Cholesterol 43 mg/dl Cholesterol/HDL Ratio 3.5 LDL Cholesterol, Calculated 74 mg/dl Medical Emergencies . Who to Call and When: Medical Emergencies: If at any time you feel your situation is an emergency, please call 911 immediately. . Non-Emergent Contact . . "Provider Documentation" section prepared by Massiel Adhikari. . VTE Core Measure Inpt VTE Proph given/why not?: Other Anticoagulation, SCD's
--- NOTE | 2017-08-24 17:30 | Discharge Summary ---
Discharge Summary Date of Service Aug 24, 2017. 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 (10) Hypothyroidism, Unspecified Status: Chronic Immunizations: Have You Had Influenza Vaccine: Unknown Influenza Vaccine Date: Sep 08, 2007 History of Tetanus Vaccine?: Unknown History of Pneumococcal: Unknown Pneumococcal Date: Aug 13, 2007 History of Hepatitis B Vaccine: Unknown Medication Reconciliation New Medications: Ranitidine (Zantac) 150 Mg Tab 150 MG PO BID for 30 Days, #60 TAB Continued Medications: Albuterol Sulf (Albuterol Sulfate) 2.5 Mg/3 Ml Nebu 3 ML INH TID PRN for SOB/Wheezing Aspirin (Aspirin Ec) 81 Mg Tab 81 MG PO DAILY Clopidogrel (Plavix) 75 Mg Tab 75 MG PO QAM, TAB Fluticasone Propionate (Flovent Hfa) 120 Puffs/10665 Mcg Aero 2 PUFFS INH BID PRN for SOB/Wheezing, INHALER Isosorbide Mononitrate Ext Rel (Imdur Ext Rel) 60 Mg Ertab 2 TAB PO QAM Levothyroxine Sodium (Levothyroxine Sodium) 50 Mcg Tab 50 MCG PO QAM Lorazepam (Ativan) 0.5 Mg Tab 0.5 MG PO DAILY PRN for Anxiety, TAB Nadolol (Corgard) 20 Mg Tab 1.5 TAB PO QAM TOTAL 30MG DAILY Nitroglycerin (Nitrostat) 0.4 Mg Tab 0.4 MG UT UD PRN for Chest Pain, 0 Refills NEEDED FOR CHEST PAIN : PLACE ONE TABLET UNDER THE TONGUE EVERY 5 MINUTES FOR UP TO 3 DOSES. Polyethylene (Polyethylene Glycol 3350) 527 Gm Soln 17 GM PO DAILY Rosuvastatin Calcium (Crestor) 40 Mg Tab 40 MG PO HS, TAB Senna/Docusate Sod (Senokot S) 1 Tab Tab 1 TAB PO PRN for Constipation, TAB Tamsulosin Hcl (Flomax) 0.4 Mg Cap 0.4 MG PO QPM, CAP Tramadol HCl (Tramadol HCl) 50 Mg Tab 1 TAB PO HS PRN for Pain Discharge Exam Review of Systems: Constitutional: No fever, No chills, No sweats Respiratory: No cough, No sputum, No dyspnea on exertion Cardiovascular: No chest pain, No orthopnea, No edema Abdomen: No pain, No nausea, No vomiting Physical Exam: General Appearance: WD/WN, no apparent distress, + thin Respiratory/Chest: chest non-tender, lungs clear, normal breath sounds, no respiratory distress, no accessory muscle use Cardiovascular: regular rate, rhythm, no edema, no gallop, no JVD Abdomen / GI: normal bowel sounds, non tender, soft Extremities: normal inspection, no pedal edema Hospital Course Pt admitted with atypical chest pain, with PMH sig for CAD, NSTEMI, CABG, DMII, COPD and CKD. As well as PMH of hiatal hernia, hypothyroid, HTN, anxiety and BPH. Pt was admitted overnight from the ED having been brought in by ambulance from his residence after complaining of pain beneath his chest. It began late morning, he did not wake with it. Onset was insidious, and the pt assumed the pain had come from his nausea and vomiting that he'd experienced the day prior. Pt characterized it as a persistent sharp pain that did not radiate. Not associated with any other symptoms. No triggers identified. Nothing made it better or worse. On admission, pt was put on telemetry, serial cardiac enzymes, and continued on his medications of ASA 81, plavix, imdur, lisinopril and nadolol. UA was wnl. INR 1.1. Atypical chest pain CXR showed no change from previous exam in June 2017. FINDINGS: Poststernotomy changes are again noted. There are few punctate calcified granulomas within the right lung. The lungs are otherwise clear. No pleural effusions. No pneumothorax. The heart is normal in size. IMPRESSION: No significant change compared to the prior study. No acute process. EKG showed sinus bradycardia at 57 bpm, old inferior wall UT, nonspecific T- wave changes in leads V3 through 6. Troponins were negative x3, CBC and PRP wnl. Chest pain atypical in nature, based on history and exam and labs, ruled out cardiac cause. Likely 2/2 hiatal hernia and associated nausea with h/o vomiting , sent pt home with script for PPI, given Zantac in hospital. HLD continued statin HypOthyroid continued levothyroxine BPH continued flomax Constipation continued Miralax and Senokot. Summary: Patient to be discharged home Admitted with atypical chest pain likely related to reflux Prescription sent to pharmacy for ranitidine 150 mg by mouth twice a day No further changes in medications Please follow up with Dr Giordano in 1-2 weeks. Total Time Spent: Greater than 30 minutes This includes examination of the patient, discharge planning, medication reconciliation, and communication with other providers. Discharge Instructions Please refer to the electronic Patient Visit Report (Discharge Instructions) for additional information. Additional Copies To Jaquan Giordano M.D. Resident Tracking Resident Involvement: Resident Care Provided Care Provided: Adult Hospital Medicine
== END 2017-08-24 16:13 | disposition home or self-care (01) ==
LOC: EDBD 09:38 → C.EDC 09:39 → C.MED 11:52 → ENRESERV 13:03
PROVIDERS: ADMIT Hospitalist; ATTEND Hospitalist
DX: R07.89 Other chest pain (principal); F41.9 Anxiety disorder, unspecified; J45.909 Unspecified asthma, uncomplicated; E11.9 Type 2 diabetes mellitus without complications; E78.5 Hyperlipidemia, unspecified; I12.9 Hypertensive chronic kidney disease with stage 1 through stage 4 chronic kidney disease, or unspecified chronic kidney disease; E03.9 Hypothyroidism, unspecified; I25.10 Atherosclerotic heart disease of native coronary artery without angina pectoris; J44.9 Chronic obstructive pulmonary disease, unspecified; N18.9 Chronic kidney disease, unspecified; Z79.82 Long term (current) use of aspirin; Z79.899 Other long term (current) drug therapy; Z95.1 Presence of aortocoronary bypass graft; I25.2 Old myocardial infarction; Z87.891 Personal history of nicotine dependence; Z98.890 Other specified postprocedural states

== ENCOUNTER → 2018-02-16 | Outpatient (CLI) | payer BC ==
[~2018-02-16] MED LIST changes: -ALBU0.08 INH; -ASPCH81 PO; +ASPI81TA28 PO; -FLUT110A INH; +FLVHFA110 INH; -ISOS120T5 PO; -ISOS40TA5 PO; +ISOS60TA25 PO; -LISI-729 PO; -MRLP17X PO; +MRLP527 PO; +SENN-65 PO; -SENN8.6T7 PO; +ULT50 PO; -ULT50X PO
[2018-02-16 16:41] LABS: BASO % 0.8 %; BASO ABS # 0.05 K/uL (0-0.2); EOS % 3.1 %; HEMATOCRIT 39.7 % (42-52); IG# 0.01 K/uL (0.00-0.02); LYMPH % 30.7 %; LYMPH ABS # 1.99 K/uL (1.2-3.4); MEAN CELL VOLUME 94.1 fL (80-100); MEAN CORPUSCULAR HEMOGLOBIN 30.8 pg (25-34); MEAN CORPUSCULAR HGB CONC 32.7 g/dl (32-36); MEAN PLATELET VOLUME 11.4 fL (7.4-10.4); MONO % 9.6 %; MONO ABS # 0.62 K/uL (0.11-0.59); NEUT % 55.6 %; NEUT ABS # 3.61 K/uL (1.4-6.5); PLATELET COUNT 195 K/uL (130-400); RED CELL DISTRIBUTION WIDTH SD 55.6 fL (36.4-46.3); WHITE BLOOD COUNT 6.48 K/uL (4.8-10.8)
[2018-02-16 17:29] LABS: ALBUMIN 3.1 gm/dl (3.4-5.0); ALT/SGPT 15 U/L (12-78); AST/SGOT 19 U/L (15-37); BLOOD UREA NITROGEN 16 mg/dl (7-18); CALCIUM 8.7 mg/dl (8.5-10.1); CARBON DIOXIDE 30 mmol/L (21-32); CREATININE 1.37 mg/dl (0.60-1.40); GLUCOSE 94 mg/dl (70-99); POTASSIUM 3.6 mmol/L (3.5-5.1); SODIUM 139 mmol/L (136-145)
[2018-02-16 17:39] LABS: ALKALINE PHOSPHATASE 66 U/L (45-117); CHOLESTEROL 175 mg/dl (0-200); LDL CHOLESTEROL CALCULATED 90 mg/dl; TOTAL PROTEIN 7.6 gm/dl (6.4-8.2)
[2018-02-17 07:49] LABS: HEMOGLOBIN A1C 6.3 % (4.5-5.6)
== END | disposition home or self-care (01) ==
LOC: C.LABBFT 13:08
PROVIDERS: ATTEND Internal Medicine
DX: I25.10 Atherosclerotic heart disease of native coronary artery without angina pectoris (principal); E03.9 Hypothyroidism, unspecified; R73.01 Impaired fasting glucose

== ENCOUNTER 2020-09-29 10:33 | Observation (INO) ==
[2020-09-29] MEDS: SODIUM CHLORIDE 0.9% 1000ML 1,000 ML IV SCH (11:24)
[2020-09-29 11:31] LABS: Basophils # (auto) 0.02 K/uL (0-0.2); Basophils % (auto) 0.5 %; Eosinophils # (auto) 0.01 K/uL (0-0.5); Eosinophils % (auto) 0.2 %; Hematocrit (blood only) 47.3 % (42-52); Hemoglobin 15.6 g/dL (14.0-18.0); Immature Granulocytes # (auto) 0.01 K/uL (0.00-0.02); Immature Granulocytes % (auto) 0.2 %; Lymphocytes # (auto) 1.29 K/uL (1.2-3.4); Lymphocytes % (auto) 32.2 %; Mean Corpuscular Hemoglobin 30.8 pg (25-34); Mean Corpuscular Volume 93.5 fL (80-100); Mean Platelet Volume 12.3 fL (7.4-10.4); Monocytes # (auto) 0.56 K/uL (0.11-0.59); Neutrophils # (auto) 2.12 K/uL (1.4-6.5); Neutrophils % (auto) 52.9 %; Platelet Count 154 K/uL (130-400); RDW Coefficient of Variation 15.9 % (11.5-14.5); RDW Standard Deviation 54.2 fL (36.4-46.3); Red Blood Count 5.06 M/uL (4.7-6.1); White Blood Count 4.01 K/uL (4.8-10.8)
[2020-09-29 11:48] LABS: INR 1.1 (0.9-1.1); Partial Thromboplastin Time 29.2 Seconds (21.0-31.0); Prothrombin Time 11.4 Seconds (9.0-12.0)
--- NOTE | 2020-09-29 11:50 | XRay Report ---
XR chest 1V portable HISTORY: SEPSIS COMPARISON: Chest 07/19/2018. FINDINGS: There are poststernotomy changes. The heart is normal in size. No pleural effusions. No pne umothorax. There is a punctate calcified granuloma within the right midlung zone, unchanged. Otherwis e, lungs are clear. No evidence for pulmonary edema. IMPRESSION: No significant change compared to the prior study. No acute process. ACT 112: Negative or not required by law. Electronically signed by: Ulises Whitaker M.D. 09/29/2020 11:48 AM
[2020-09-29 11:51] LABS: Albumin Level 3.1 gm/dl (3.4-5.0); BUN Creatinine Ratio 9.8 (10-20); Calcium 8.9 mg/dl (8.5-10.1); Creatinine Clr Calc Pharmacy 26.3 ml/min; Est GFR (African American) 40.3; Est GFR (Non-African American) 34.8; Magnesium 2.3 mg/dl (1.8-2.4); Potassium 3.2 mmol/L (3.5-5.1)
[2020-09-29 12:01] LABS: Influenza A virus by PCR Negative (Negative); Influenza B virus by PCR Negative (Negative)
[2020-09-29 12:03] LABS: Albumin Globulin Ratio 0.7 (0.9-2); Bilirubin,Total 0.9 mg/dl (0.2-1); Globulin 4.6 gm/dl (2.5-4.0); Total Protein 7.7 gm/dl (6.4-8.2); Troponin I 0.36 ng/ml (0-0.045)
--- NOTE | 2020-09-29 12:50 | History & Physical Report ---
Date of Service September 29, 2020 Assessment & Plan (1) Elevated troponin: Troponin with mild elevation to 0.36, with underlying known severe CAD. The patient denies any chest pain. ECG without any ischemic changes. 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 He is unsure how long he has not been feeling well as he is not the best historian. His girlfriend reported she started having symptoms about 10 days ago and was in the hospital for about 5 days and was just discharged yesterday. He is not hypoxic, his chest x-ray is clear. He just has low appetite and some mild weakness, dehydration, but otherwise doing okay. I consented him for convalescent plasma He does not meet criteria for receiving remdesivir or dexamethasone at this time Supportive care IV fluids for renal insufficiency Contact precautions and airborne precautions -Follow CBC, CMP, ESR, CRP, ferritin, LDH, D-dimer in the morning (4) Benign hypertension with chronic kidney disease, stage III: Acute renal insufficiency in the setting of CKD stage III Creatinine mildly above baseline at 1.78 today, baseline 1.5 Giving gentle IV fluids Follow BMP in the morning -Avoid nephrotoxins -renally dose meds when appropriate (5) Hyperlipidemia: Continue statin (6) Hypertension: Blood pressures are mildly elevated Continue home isosorbide, nadolol (7) Hx of CABG: Noted See elevated troponin above (8) Type 2 diabetes mellitus: This is diet controlled We will give Accu-Cheks with sliding scale insulin (9) Hypothyroidism: Last TSH 0.2641-year ago Check TSH in the morning Continue home levothyroxine (10) CAD (coronary artery disease): As above Continue home meds (11) COPD (chronic obstructive pulmonary disease): No acute exacerbation Continue home inhaled corticosteroid, albuterol as needed (12) Carotid artery stenosis: Is followed routinely by vascular surgery, is stable and asymptomatic With known 60-79% stenosis of left ICA and less than 50% stenosis of right ICA Continue aspirin, Plavix, rosuvastatin (13) Hypokalemia: Replaced with potassium chloride 20 mill equivalents p.o. x1 Follow BMP in the morning (14) DVT prophylaxis: High-dose heparin SQ Disposition-bring in on observation for cardiac work-up and IV fluid hydration Most likely can discharge back to home tomorrow. His girlfriend also had Covid and she can take care of him at home PT/OT consultation History of Present Illness Chief Complaint: Weakness Primary Care Provider: Jaquan Giordano MD This patient is an 84-year-old male with a history of multivessel CAD status post CABG x3 vessels, STEMI 08/28/2015 status post SVG PCI and repeat SVG PCI with ZO 2015, COPD, HTN, dyslipidemia, DM 2, CKD stage III, carotid artery stenosis, and hypothyroidism who presents to the ER today with complaint of generalized weakness and decreased p.o. intake. He cannot see for sure exactly how long its been going on and is a little bit of a poor historian. I did talk to his girlfriend on the phone who informed me that she just got out of the hospital with Covid for the last week. She believes that they all got it from a long car ride that they took with the patient's son who also turned out to be positive for Covid. This car ride occurred on 09/15/2020. The patient denies any chest pain or shortness of breath, no cough. No nausea or vomiting, no abdominal pain or diarrhea. He states that he has been able to walk around his house. He has been living alone since his girlfriend was in the hospital last week but she came to check on him yesterday and stayed over night and called the ambulance this morning as she was worried about him. In the ER, he was found to be Covid positive, Negative for flu, and with mildly elevated troponin at 0.36 with ECG showing normal sinus rhythm with PACs, inferior-posterior infarct, and T wave inversion more evident in anterior leads than previous. His creatinine was slightly increased over baseline at 1.78 (baseline 1.5). His procalcitonin was negative. He was also leukopenic and borderline thrombocytopenic. His chest x-ray was clear. In the ER, he was given IV fluids. He will be brought in on observation for cardiac work-up and supportive care with IV fluids for mild renal insufficiency. He is also agreeable to receiving convalescent plasma. He is not hypoxic at all and does not qualify for remdesivir or dexamethasone as he does not have severe Covid disease. Allergies Allergy/AdvReac Type Severity Reaction Status Date / Time No Known Drug Allergies Allergy Verified 09/29/20 12:50 Home Medications Medication Instructions Recorded Confirmed Type aspirin 81 mg tablet,delayed 81 mg PO DAILY #30 tab 07/24/19 09/29/20 Rx release fluticasone propionate 110 1 puffs INH BID #12 gm 07/24/19 09/29/20 Rx mcg/actuation HFA aerosol inhaler lorazepam 0.5 mg tablet 0.5 mg PO DAILY PRN #30 tab 07/24/19 09/29/20 Rx nitroglycerin 0.4 mg sublingual 0.4 mg SL Q5M PRN #25 tab 07/24/19 09/29/20 Rx tablet isosorbide mononitrate 120 mg 240 mg PO DAILY #180 tab 09/24/19 09/29/20 Rx tablet,extended release 24 hr clopidogrel 75 mg tablet 75 mg PO DAILY #90 tab 11/18/19 09/29/20 Rx levothyroxine 75 mcg tablet 75 mcg PO DAILY #90 tab 11/18/19 09/29/20 Rx pantoprazole 40 mg tablet,delayed 40 mg PO DAILY #90 tab 11/18/19 09/29/20 Rx release rosuvastatin 40 mg tablet 40 mg PO DAILY #90 tab 11/18/19 09/29/20 Rx albuterol sulfate 2.5 mg INH TID PRN #75 ml 06/25/20 09/29/20 Rx nadolol 20 mg PO DAILY 09/29/20 09/29/20 History Past Med/Surg History Medical History Anemia Arthritis Carotid artery stenosis Cataract Generalized weakness Hyperlipidemia Hypertension Hypothyroidism Sleep apnea Type 2 diabetes mellitus Surgical History H/O sinus surgery Hx of appendectomy Hx of CABG Hx of transurethral resection of prostate Family History Other Cancer Diabetes Hypertension Social History Smoking Status: Former smoker Age Started Using Tobacco: 18; Age Quit Using Tobacco: 59; packs per day: 1; Years Smoked: 41; Cigarettes Per Day: 20; Number of Years Since Quit: 24; Hx Alcohol Use: No Hx Substance Use: Yes Last Used Substance: Days (ago) Substance Use Type Other:: lorazepam Preferred Language: Gabonese Communication Ability: Effective Hearing Ability: Hard of Hearing Statistical Programmer Required: No Beliefs That Will Affect Care: None marital status: Life Partner Current Living Situation: Significant Other current occupational status: retired Other Information That Helps Us Care for You: No Feels Safe at Home: Yes Safety Concerns: Feels Safe At This Time Dental Care, Regularly: No Seatbelt Use: always Sunscreen Use: No Assistive Devices: Cane, Denture - Upper and Denture - Lower Review of Systems Review of Systems: All systems reviewed & are unremarkable except as noted in HPI & below Physical Exam Constitutional: WD/WN, vitals as above Eyes: PERRL, conjunctivae normal, anicteric sclerae ENMT: external ear and nose normal, oropharynx normal Neck: trachea midline, no thyromegaly Respiratory: normal respiratory effort, lungs clear to auscultation Cardiovascular: RRR, no murmur, no edema Chest (Breasts): Chest: normal inspection of chest Gastrointestinal (Abdomen): normal bowel sounds, soft, nontender, no hepatosplenomegaly Musculoskeletal: Extremities: extremities normal to inspection; no cyanosis and no clubbing Skin: no rashes, warm and dry Neurologic: moves all extremities and awake; no focal motor deficits Psychiatric: Orientation: alert, oriented to person, oriented to place and cooperative Eye Contact: good eye contact Speech: normal rate/rhythm/volume of speech Affect: euthymic affect Lymphatic: no lymphedema Results & Data Results & Data ([facility]) Vital Signs (Past 12 Hours) Vital Signs Temp Pulse Resp BP Pulse Ox 09/29/20 11:24 95 09/29/20 10:54 37 C 71 22 142/75 H 95 Laboratory Results 09/29/20 09/29/20 09/29/20 Range/Units 12:04 12:04 11:20 WBC (4.8-10.8) K/uL RBC (4.7-6.1) M/uL Hgb (14.0-18.0) g/dL Hct (42-52) % MCV (80-100) fL MCH (25-34) pg MCHC (32-36) g/dL RDW Std Deviation (36.4-46.3) fL RDW Coeff of Pratik (11.5-14.5) % Plt Count (130-400) K/uL MPV (7.4-10.4) fL Immature Gran % (Auto) % Neut % (Auto) % Lymph % (Auto) % Jessamine % (Auto) % Eos % (Auto) % Baso % (Auto) % Neut # (Auto) (1.4-6.5) K/uL Lymph # (Auto) (1.2-3.4) K/uL Jessamine # (Auto) (0.11-0.59) K/uL Eos # (Auto) (0-0.5) K/uL Baso # (Auto) (0-0.2) K/uL Immature Gran # (Auto) (0.00-0.02) K/uL PT (9.0-12.0) Seconds INR (0.9-1.1) APTT (21.0-31.0) Seconds PTT Ratio VBG pH Cancelled VBG pCO2 Cancelled VBG pO2 Cancelled VBG HCO3 Cancelled VBG O2 Saturation Cancelled VBG Base Excess Cancelled Barometric Pressure Cancelled Sodium (136-145) mmol/L Potassium (3.5-5.1) mmol/L Chloride (98-107) mmol/L Carbon Dioxide (21-32) mmol/L Anion Gap (3-11) BUN (7-18) mg/dl Creatinine (0.6-1.4) mg/dl Est Cr Clr Drug Dosing ml/min Est GFR ( Amer) Est GFR (Non-Af Amer) BUN/Creatinine Ratio (10-20) Glucose (70-99) mg/dl Lactate 2.5 H* (0.4-2.0) mmol/L Calcium (8.5-10.1) mg/dl Magnesium (1.8-2.4) mg/dl Total Bilirubin (0.2-1) mg/dl AST (15-37) U/L ALT (12-78) U/L Alkaline Phosphatase (45-117) U/L Troponin I (0-0.045) ng/ml Total Protein (6.4-8.2) gm/dl Albumin (3.4-5.0) gm/dl Globulin (2.5-4.0) gm/dl Albumin/Globulin Ratio (0.9-2) Procalcitonin (0-0.5) ng/ml COVID-19 Eval Order Influ A Molecular Assay (Negative) Influ B Molecular Assay (Negative) SARS-CoV-2, RNA, NAAT POSITIVE A* (NEGATIVE) 09/29/20 09/29/20 09/29/20 Range/Units 11: 11: 10:50 WBC (4.8-10.8) K/uL RBC (4.7-6.1) M/uL Hgb (14.0-18.0) g/dL Hct (42-52) % MCV (80-100) fL MCH (25-34) pg MCHC (32-36) g/dL RDW Std Deviation (36.4-46.3) fL RDW Coeff of Pratik (11.5-14.5) % Plt Count (130-400) K/uL MPV (7.4-10.4) fL Immature Gran % (Auto) % Neut % (Auto) % Lymph % (Auto) % Jessamine % (Auto) % Eos % (Auto) % Baso % (Auto) % Neut # (Auto) (1.4-6.5) K/uL Lymph # (Auto) (1.2-3.4) K/uL Jessamine # (Auto) (0.11-0.59) K/uL Eos # (Auto) (0-0.5) K/uL Baso # (Auto) (0-0.2) K/uL Immature Gran # (Auto) (0.00-0.02) K/uL PT (9.0-12.0) Seconds INR (0.9-1.1) APTT (21.0-31.0) Seconds PTT Ratio VBG pH VBG pCO2 VBG pO2 VBG HCO3 VBG O2 Saturation VBG Base Excess Barometric Pressure Sodium (136-145) mmol/L Potassium (3.5-5.1) mmol/L Chloride (98-107) mmol/L Carbon Dioxide (21-32) mmol/L Anion Gap (3-11) BUN (7-18) mg/dl Creatinine (0.6-1.4) mg/dl Est Cr Clr Drug Dosing ml/min Est GFR ( Amer) Est GFR (Non-Af Amer) BUN/Creatinine Ratio (10-20) Glucose (70-99) mg/dl Lactate (0.4-2.0) mmol/L Calcium (8.5-10.1) mg/dl Magnesium (1.8-2.4) mg/dl Total Bilirubin (0.2-1) mg/dl AST (15-37) U/L ALT (12-78) U/L Alkaline Phosphatase (45-117) U/L Troponin I (0-0.045) ng/ml Total Protein (6.4-8.2) gm/dl Albumin (3.4-5.0) gm/dl Globulin (2.5-4.0) gm/dl Albumin/Globulin Ratio (0.9-2) Procalcitonin < 0.05 (0-0.5) ng/ml COVID-19 Eval [facility] Influ A Molecular Assay Negative (Negative) Influ B Molecular Assay Negative (Negative) SARS-CoV-2, RNA, NAAT (NEGATIVE) 09/29/20 09/29/20 09/29/20 Range/Units 10:50 10:50 10:50 WBC 4.01 L (4.8-10.8) K/uL RBC 5.06 (4.7-6.1) M/uL Hgb 15.6 (14.0-18.0) g/dL Hct 47.3 (42-52) % MCV 93.5 (80-100) fL MCH 30.8 (25-34) pg MCHC 33.0 (32-36) g/dL RDW Std Deviation 54.2 H (36.4-46.3) fL RDW Coeff of Pratik 15.9 H (11.5-14.5) % Plt Count 154 (130-400) K/uL MPV 12.3 H (7.4-10.4) fL Immature Gran % (Auto) 0.2 % Neut % (Auto) 52.9 % Lymph % (Auto) 32.2 % Jessamine % (Auto) 14.0 % Eos % (Auto) 0.2 % Baso % (Auto) 0.5 % Neut # (Auto) 2.12 (1.4-6.5) K/uL Lymph # (Auto) 1.29 (1.2-3.4) K/uL Jessamine # (Auto) 0.56 (0.11-0.59) K/uL Eos # (Auto) 0.01 (0-0.5) K/uL Baso # (Auto) 0.02 (0-0.2) K/uL Immature Gran # (Auto) 0.01 (0.00-0.02) K/uL PT 11.4 (9.0-12.0) Seconds INR 1.1 (0.9-1.1) APTT 29.2 (21.0-31.0) Seconds PTT Ratio 1.0 VBG pH VBG pCO2 VBG pO2 VBG HCO3 VBG O2 Saturation VBG Base Excess Barometric Pressure Sodium 139 (136-145) mmol/L Potassium 3.2 L (3.5-5.1) mmol/L Chloride 104 (98-107) mmol/L Carbon Dioxide 26 (21-32) mmol/L Anion Gap 9.0 (3-11) BUN 18 (7-18) mg/dl Creatinine 1.78 H (0.6-1.4) mg/dl Est Cr Clr Drug Dosing 26.3 ml/min Est GFR ( Amer) 40.3 Est GFR (Non-Af Amer) 34.8 BUN/Creatinine Ratio 9.8 L (10-20) Glucose 161 H (70-99) mg/dl Lactate (0.4-2.0) mmol/L Calcium 8.9 (8.5-10.1) mg/dl Magnesium 2.3 (1.8-2.4) mg/dl Total Bilirubin 0.9 (0.2-1) mg/dl AST 30 (15-37) U/L ALT 10 L (12-78) U/L Alkaline Phosphatase 66 (45-117) U/L Troponin I 0.360 H* (0-0.045) ng/ml Total Protein 7.7 (6.4-8.2) gm/dl Albumin 3.1 L (3.4-5.0) gm/dl Globulin 4.6 H (2.5-4.0) gm/dl Albumin/Globulin Ratio 0.7 L (0.9-2) Procalcitonin (0-0.5) ng/ml COVID-19 Eval Order Influ A Molecular Assay (Negative) Influ B Molecular Assay (Negative) SARS-CoV-2, RNA, NAAT (NEGATIVE) Diagnostic Findings Chest [id number] for acute disease, no infiltrate or pulmonary edema ECG Additional Comments: ECG with normal sinus rhythm with PACs, inferior-posterior infarct, and T wave inversion more evident in anterior leads from previous Code Status & VTE Plan Code Status Desires intubation for respiratory failure but does not want CPR for cardiac arrest VTE Prophylaxis Plan VTE Prophylaxis will be ordered: Yes PG Care Time/CCT Total # of Minutes Spent Total Time Spent with Patient: Total time spent is greater than 50% in coordination of care (as documented) at patient's floor/unit and/or counseling patient: Coding Level of Care Code 58077 OBS Care - Level 3 Diagnoses Elevated troponin R77.8 Generalized weakness R53.1 COVID-19 U07.1 Benign hypertension with chronic kidney disease, stage III I12.9; N18.3 Hyperlipidemia E78.5 Hypertension I10 Hx of CABG Z95.1 Type 2 diabetes mellitus E11.9 Hypothyroidism E03.9 CAD (coronary artery disease) I25.10 COPD (chronic obstructive pulmonary disease) J44.9 Carotid artery stenosis I65.29 Hypokalemia E87.6 DVT prophylaxis Z29.9
[2020-09-29 13:02] LABS: Base Excess VBG 4.1 mEq/L; HCO3 VBG 29 mmol/L; Oxygen Saturation VBG < 60.0 %; PCO2 VBG 47 mmHg (38-50); PO2 VBG 19 mmHg; pH VBG 7.42 (7.36-7.41)
[2020-09-29 13:28] LABS: D Dimer 3780 ug/L FEU (0-500)
[2020-09-29] MEDS ORDERED: ENOXAPARIN INJ 30 MG/0.3 ML SYR SQ SCH (13:34)
[2020-09-29] MEDS ORDERED: POTASSIUM CHLORIDE CRTAB 20 MEQ TABCR PO STA (13:34)
--- NOTE | 2020-09-29 13:34 | Emergency Department Note ---
History of Present Illness General Chief complaint: Weakness Stated complaint: Weakness, Contact with COVID Time Seen by Provider: 09/29/20 10:57 History of Present Illness Provider complaint: Weakness Onset (ago): day(s) 2 Maximum Pain Intensity: 0 Associated symptoms: + weakness; no chest pain, no cough, no fever/chills, no headaches and no nausea/vomiting 84-year-old male presents emergency department for weakness. Patient states over the last 2 to 3 days he has had increasingly weak. He states he feels exhausted. He denies any loss of taste or smell, no chest pain, no difficulty breathing, no fevers. Patient does have a history of being exposed to someone w ho is COVID-19 positive. Home Medications Medication Instructions Recorded Confirmed Type aspirin 81 mg tablet,delayed 81 mg PO DAILY #30 tab 07/24/19 09/29/20 Rx release fluticasone propionate 110 1 puffs INH BID #12 gm 07/24/19 09/29/20 Rx mcg/actuation HFA aerosol inhaler lorazepam 0.5 mg tablet 0.5 mg PO DAILY PRN #30 tab 07/24/19 09/29/20 Rx nitroglycerin 0.4 mg sublingual 0.4 mg SL Q5M PRN #25 tab 07/24/19 09/29/20 Rx tablet isosorbide mononitrate 120 mg 240 mg PO DAILY #180 tab 09/24/19 09/29/20 Rx tablet,extended release 24 hr clopidogrel 75 mg tablet 75 mg PO DAILY #90 tab 11/18/19 09/29/20 Rx levothyroxine 75 mcg tablet 75 mcg PO DAILY #90 tab 11/18/19 09/29/20 Rx pantoprazole 40 mg tablet,delayed 40 mg PO DAILY #90 tab 11/18/19 09/29/20 Rx release rosuvastatin 40 mg tablet 40 mg PO DAILY #90 tab 11/18/19 09/29/20 Rx albuterol sulfate 2.5 mg INH TID PRN #75 ml 06/25/20 09/29/20 Rx nadolol 20 mg PO DAILY 09/29/20 09/29/20 History Allergies Allergy/AdvReac Type Severity Reaction Status Date / Time No Known Drug Allergies Allergy Verified 09/29/20 12:50 Past Med/Surg History Medical History Anemia Arthritis Carotid artery stenosis Cataract Generalized weakness Hyperlipidemia Hypertension Hypothyroidism Sleep apnea Type 2 diabetes mellitus Surgical History H/O sinus surgery Hx of appendectomy Hx of CABG Hx of transurethral resection of prostate Family History Other Cancer Diabetes Hypertension Social History Smoking Status: Former smoker Age Started Using Tobacco: 18; Age Quit Using Tobacco: 59; packs per day: 1; Years Smoked: 41; Cigarettes Per Day: 20; Number of Years Since Quit: 24; Hx Alcohol Use: No Hx Substance Use: Yes Last Used Substance: Days (ago) Substance Use Type Other:: lorazepam Preferred Language: Cameroonian Hearing Ability: Hard of Hearing marital status: Life Partner Current Living Situation: Significant Other current occupational status: retired Feels Safe at Home: Yes Dental Care, Regularly: No Seatbelt Use: always Sunscreen Use: No Review of Systems A total of 10 systems reviewed and were otherwise negative Physical Exam Vital Signs Vital Signs - 24 hr 09/29/20 10:54 09/29/20 11:24 09/29/20 12:54 Temperature 37 C Temperature Source Oral Pulse Rate 71 Pulse Rate [Apical] 64 Respiratory Rate 22 18 Respiratory Depth Normal Blood Pressure 142/75 H Blood Pressure [Left Arm] 130/75 Blood Pressure Mean 97 Blood Pressure Mean [Left Arm] 93 Pulse Oximetry 95 95 95 Oxygen Delivery Method Room Air Room Air Room Air Sepsis Recent Fever Within 48 Hours No Sepsis New/Unexplained Change in Mental Status No Sepsis Action Taken by Nursing No Action Required Physical Exam GENERAL: He is oriented to person, place, and time. He appears well-developed and well-nourished. He does not appear distressed. HENT: Exam performed. - Head: Normocephalic and atraumatic. - Right Ear: External ear normal. No mastoid tenderness. - Left Ear: External ear normal. No mastoid tenderness. - Mouth/Throat: The oropharynx is clear and moist. No trismus in the jaw. No dental abscesses or uvula swelling. No oropharyngeal exudate or tonsillar abscesses. EYES: Conjunctivae and EOM are normal. Pupils are equal, round, and reactive to light. Right eye exhibits no discharge. Left eye exhibits no discharge. No scleral icterus. NECK: Normal range of motion. Neck supple. No JVD present. No spinous process tenderness present. No carotid bruit present. No rigidity. No tracheal deviation and normal range of motion present. No Brudzinski's sign and no Kernig's sign noted. CV: Normal rate, regular rhythm, normal heart sounds and intact distal pulses. There is no peripheral edema. Palpable radial pulses bue. PULM/CHEST: Effort normal and breath sounds normal. No respiratory distress. No stridor. He has no wheezes. He has no rales. - Chest Wall: He exhibits no tenderness. ABD: The abdomen is soft. Bowel sounds are normal. He has no distension. No mass is present. There is no tenderness. There is no rebound, no guarding, no Posada's sign and no tenderness at McBurney's point. Rovsig negative. MUSC/SKEL: Normal range of motion. There is no peripheral edema, tenderness or deformity. LYMPH: No cervical adenopathy. NEURO: Motor and sensation grossly intact. SKIN: Skin is warm and dry. He is not diaphoretic. PSYCH: He has a normal mood and affect. Behavior is normal. Judgment and thought content normal. Course Course 1057: The patient was evaluated in room A4. A complete history and physical exam was performed. Patient was seen in full airborne precautions. Patient was seen in N95's, gloves, gowns, face shield by myself and staff. Cardiac monitoring: An order was placed for continuous cardiac monitoring. The monitor shows a rate of 70 with sinus rhythm 1230: Vital signs stable. Labs show a creatinine of 1.78. Potassium 3.2. Troponin elevated at 0.36. Lactic acid elevated at 2.5. Patient is COVID-19 positive. Given patient's elevated troponin, elevated lactic acid level, patient is extremely weak and he will be admitted to the hospital service. Dr. Martin [facility] hospitalist was made aware. 1356: Vital signs stable. Spoke with the patient's son Valentin [phone] who I updated and explained to him that the patient will be admitted for COVID-19. He thanked me for calling him and is asking that we call him on this number for further updates. Administered Medications Sodium Chloride (Nss 1000ml) 1,000 mls @ 80 mls/hr IV .[id number] EVERARDO Stop: 10/29/20 11:14 Last Admin: 09/29/20 11:24 Dose: 80 mls/hr Documented by: [id number] Medical Decision Making Laboratory Data Result diagrams: 09/29/20 10:50 09/29/20 10:50 Lab Results 09/29/20 09/29/20 09/29/20 Range/Units 10:50 10:50 10:50 WBC 4.01 L (4.8-10.8) K/uL RBC 5.06 (4.7-6.1) M/uL Hgb 15.6 (14.0-18.0) g/dL Hct 47.3 (42-52) % MCV 93.5 (80-100) fL MCH 30.8 (25-34) pg MCHC 33.0 (32-36) g/dL RDW Std Deviation 54.2 H (36.4-46.3) fL RDW Coeff of Pratik 15.9 H (11.5-14.5) % Plt Count 154 (130-400) K/uL MPV 12.3 H (7.4-10.4) fL Immature Gran % (Auto) 0.2 % Neut % (Auto) 52.9 % Lymph % (Auto) 32.2 % [place] % (Auto) 14.0 % Eos % (Auto) 0.2 % Baso % (Auto) 0.5 % Neut # (Auto) 2.12 (1.4-6.5) K/uL Lymph # (Auto) 1.29 (1.2-3.4) K/uL [place] # (Auto) 0.56 (0.11-0.59) K/uL Eos # (Auto) 0.01 (0-0.5) K/uL Baso # (Auto) 0.02 (0-0.2) K/uL Immature Gran # (Auto) 0.01 (0.00-0.02) K/uL ESR (0-14) mm/hr PT 11.4 (9.0-12.0) Seconds INR 1.1 (0.9-1.1) APTT 29.2 (21.0-31.0) Seconds PTT Ratio 1.0 D-Dimer (0-500) ug/L FEU VBG pH VBG pCO2 VBG pO2 VBG HCO3 VBG O2 Saturation VBG Base Excess Barometric Pressure Sodium 139 (136-145) mmol/L Potassium 3.2 L (3.5-5.1) mmol/L Chloride 104 (98-107) mmol/L Carbon Dioxide 26 (21-32) mmol/L Anion Gap 9.0 (3-11) BUN 18 (7-18) mg/dl Creatinine 1.78 H (0.6-1.4) mg/dl Est Cr Clr Drug Dosing 26.3 ml/min Est GFR ( Amer) 40.3 Est GFR (Non-Af Amer) 34.8 BUN/Creatinine Ratio 9.8 L (10-20) Glucose 161 H (70-99) mg/dl Lactate (0.4-2.0) mmol/L Calcium 8.9 (8.5-10.1) mg/dl Magnesium 2.3 (1.8-2.4) mg/dl Ferritin (8-388) ng/ml Total Bilirubin 0.9 (0.2-1) mg/dl AST 30 (15-37) U/L ALT 10 L (12-78) U/L Alkaline Phosphatase 66 (45-117) U/L Lactate Dehydrogenase (87-241) U/L Troponin I 0.360 H* (0-0.045) ng/ml C-Reactive Protein (0-0.29) mg/dl Total Protein 7.7 (6.4-8.2) gm/dl Albumin 3.1 L (3.4-5.0) gm/dl Globulin 4.6 H (2.5-4.0) gm/dl Albumin/Globulin Ratio 0.7 L (0.9-2) Procalcitonin (0-0.5) ng/ml COVID-19 Eval Order Influ A Molecular Assay (Negative) Influ B Molecular Assay (Negative) SARS-CoV-2, RNA, NAAT (NEGATIVE) 09/29/20 09/29/20 09/29/20 Range/Units 10:50 11:20 11:20 WBC (4.8-10.8) K/uL RBC (4.7-6.1) M/uL Hgb (14.0-18.0) g/dL Hct (42-52) % MCV (80-100) fL MCH (25-34) pg MCHC (32-36) g/dL RDW Std Deviation (36.4-46.3) fL RDW Coeff of Pratik (11.5-14.5) % Plt Count (130-400) K/uL MPV (7.4-10.4) fL Immature Gran % (Auto) % Neut % (Auto) % Lymph % (Auto) % [place] % (Auto) % Eos % (Auto) % Baso % (Auto) % Neut # (Auto) (1.4-6.5) K/uL Lymph # (Auto) (1.2-3.4) K/uL [place] # (Auto) (0.11-0.59) K/uL Eos # (Auto) (0-0.5) K/uL Baso # (Auto) (0-0.2) K/uL Immature Gran # (Auto) (0.00-0.02) K/uL ESR (0-14) mm/hr PT (9.0-12.0) Seconds INR (0.9-1.1) APTT (21.0-31.0) Seconds PTT Ratio D-Dimer (0-500) ug/L FEU VBG pH VBG pCO2 VBG pO2 VBG HCO3 VBG O2 Saturation VBG Base Excess Barometric Pressure Sodium (136-145) mmol/L Potassium (3.5-5.1) mmol/L Chloride (98-107) mmol/L Carbon Dioxide (21-32) mmol/L Anion Gap (3-11) BUN (7-18) mg/dl Creatinine (0.6-1.4) mg/dl Est Cr Clr Drug Dosing ml/min Est GFR ( Amer) Est GFR (Non-Af Amer) BUN/Creatinine Ratio (10-20) Glucose (70-99) mg/dl Lactate (0.4-2.0) mmol/L Calcium (8.5-10.1) mg/dl Magnesium (1.8-2.4) mg/dl Ferritin (8-388) ng/ml Total Bilirubin (0.2-1) mg/dl AST (15-37) U/L ALT (12-78) U/L Alkaline Phosphatase (45-117) U/L Lactate Dehydrogenase (87-241) U/L Troponin I (0-0.045) ng/ml C-Reactive Protein (0-0.29) mg/dl Total Protein (6.4-8.2) gm/dl Albumin (3.4-5.0) gm/dl Globulin (2.5-4.0) gm/dl Albumin/Globulin Ratio (0.9-2) Procalcitonin < 0.05 (0-0.5) ng/ml COVID-19 Eval [facility] A Molecular Assay Negative (Negative) Influ B Molecular Assay Negative (Negative) SARS-CoV-2, RNA, NAAT (NEGATIVE) 09/29/20 09/29/20 09/29/20 Range/Units 11:20 12:04 12:04 WBC (4.8-10.8) K/uL RBC (4.7-6.1) M/uL Hgb (14.0-18.0) g/dL Hct (42-52) % MCV (80-100) fL MCH (25-34) pg MCHC (32-36) g/dL RDW Std Deviation (36.4-46.3) fL RDW Coeff of Pratik (11.5-14.5) % Plt Count (130-400) K/uL MPV (7.4-10.4) fL Immature Gran % (Auto) % Neut % (Auto) % Lymph % (Auto) % [place] % (Auto) % Eos % (Auto) % Baso % (Auto) % Neut # (Auto) (1.4-6.5) K/uL Lymph # (Auto) (1.2-3.4) K/uL [place] # (Auto) (0.11-0.59) K/uL Eos # (Auto) (0-0.5) K/uL Baso # (Auto) (0-0.2) K/uL Immature Gran # (Auto) (0.00-0.02) K/uL ESR (0-14) mm/hr PT (9.0-12.0) Seconds INR (0.9-1.1) APTT (21.0-31.0) Seconds PTT Ratio D-Dimer (0-500) ug/L FEU VBG pH Cancelled VBG pCO2 Cancelled VBG pO2 Cancelled VBG HCO3 Cancelled VBG O2 Saturation Cancelled VBG Base Excess Cancelled Barometric Pressure Cancelled Sodium (136-145) mmol/L Potassium (3.5-5.1) mmol/L Chloride (98-107) mmol/L Carbon Dioxide (21-32) mmol/L Anion Gap (3-11) BUN (7-18) mg/dl Creatinine (0.6-1.4) mg/dl Est Cr Clr Drug Dosing ml/min Est GFR ( Amer) Est GFR (Non-Af Amer) BUN/Creatinine Ratio (10-20) Glucose (70-99) mg/dl Lactate 2.5 H* (0.4-2.0) mmol/L Calcium (8.5-10.1) mg/dl Magnesium (1.8-2.4) mg/dl Ferritin (8-388) ng/ml Total Bilirubin (0.2-1) mg/dl AST (15-37) U/L ALT (12-78) U/L Alkaline Phosphatase (45-117) U/L Lactate Dehydrogenase (87-241) U/L Troponin I (0-0.045) ng/ml C-Reactive Protein (0-0.29) mg/dl Total Protein (6.4-8.2) gm/dl Albumin (3.4-5.0) gm/dl Globulin (2.5-4.0) gm/dl Albumin/Globulin Ratio (0.9-2) Procalcitonin (0-0.5) ng/ml COVID-19 Eval Order Influ A Molecular Assay (Negative) Influ B Molecular Assay (Negative) SARS-CoV-2, RNA, NAAT POSITIVE A* (NEGATIVE) 09/29/20 09/29/20 09/29/20 Range/Units 12:52 12:55 12:55 WBC (4.8-10.8) K/uL RBC (4.7-6.1) M/uL Hgb (14.0-18.0) g/dL Hct (42-52) % MCV (80-100) fL MCH (25-34) pg MCHC (32-36) g/dL RDW Std Deviation (36.4-46.3) fL RDW Coeff of Pratik (11.5-14.5) % Plt Count (130-400) K/uL MPV (7.4-10.4) fL Immature Gran % (Auto) % Neut % (Auto) % Lymph % (Auto) % [place] % (Auto) % Eos % (Auto) % Baso % (Auto) % Neut # (Auto) (1.4-6.5) K/uL Lymph # (Auto) (1.2-3.4) K/uL [place] # (Auto) (0.11-0.59) K/uL Eos # (Auto) (0-0.5) K/uL Baso # (Auto) (0-0.2) K/uL Immature Gran # (Auto) (0.00-0.02) K/uL ESR 23 H (0-14) mm/hr PT (9.0-12.0) Seconds INR (0.9-1.1) APTT (21.0-31.0) Seconds PTT Ratio D-Dimer (0-500) ug/L FEU VBG pH 7.42 H VBG pCO2 47 VBG pO2 19 VBG HCO3 29 VBG O2 Saturation < 60.0 VBG Base Excess 4.1 Barometric Pressure 735.6 Sodium (136-145) mmol/L Potassium (3.5-5.1) mmol/L Chloride (98-107) mmol/L Carbon Dioxide (21-32) mmol/L Anion Gap (3-11) BUN (7-18) mg/dl Creatinine (0.6-1.4) mg/dl Est Cr Clr Drug Dosing ml/min Est GFR ( Amer) Est GFR (Non-Af Amer) BUN/Creatinine Ratio (10-20) Glucose (70-99) mg/dl Lactate (0.4-2.0) mmol/L Calcium (8.5-10.1) mg/dl Magnesium (1.8-2.4) mg/dl Ferritin 311.3 (8-388) ng/ml Total Bilirubin (0.2-1) mg/dl AST (15-37) U/L ALT (12-78) U/L Alkaline Phosphatase (45-117) U/L Lactate Dehydrogenase (87-241) U/L Troponin I (0-0.045) ng/ml C-Reactive Protein 1.92 H (0-0.29) mg/dl Total Protein (6.4-8.2) gm/dl Albumin (3.4-5.0) gm/dl Globulin (2.5-4.0) gm/dl Albumin/Globulin Ratio (0.9-2) Procalcitonin (0-0.5) ng/ml COVID-19 Eval Order Influ A Molecular Assay (Negative) Influ B Molecular Assay (Negative) SARS-CoV-2, RNA, NAAT (NEGATIVE) 09/29/20 09/29/20 Range/Units 12:55 12:55 WBC (4.8-10.8) K/uL RBC (4.7-6.1) M/uL Hgb (14.0-18.0) g/dL Hct (42-52) % MCV (80-100) fL MCH (25-34) pg MCHC (32-36) g/dL RDW Std Deviation (36.4-46.3) fL RDW Coeff of Pratik (11.5-14.5) % Plt Count (130-400) K/uL MPV (7.4-10.4) fL Immature Gran % (Auto) % Neut % (Auto) % Lymph % (Auto) % [place] % (Auto) % Eos % (Auto) % Baso % (Auto) % Neut # (Auto) (1.4-6.5) K/uL Lymph # (Auto) (1.2-3.4) K/uL [place] # (Auto) (0.11-0.59) K/uL Eos # (Auto) (0-0.5) K/uL Baso # (Auto) (0-0.2) K/uL Immature Gran # (Auto) (0.00-0.02) K/uL ESR (0-14) mm/hr PT (9.0-12.0) Seconds INR (0.9-1.1) APTT (21.0-31.0) Seconds PTT Ratio D-Dimer 3780 H* (0-500) ug/L FEU VBG pH VBG pCO2 VBG pO2 VBG HCO3 VBG O2 Saturation VBG Base Excess Barometric Pressure Sodium (136-145) mmol/L Potassium (3.5-5.1) mmol/L Chloride (98-107) mmol/L Carbon Dioxide (21-32) mmol/L Anion Gap (3-11) BUN (7-18) mg/dl Creatinine (0.6-1.4) mg/dl Est Cr Clr Drug Dosing ml/min Est GFR ( Amer) Est GFR (Non-Af Amer) BUN/Creatinine Ratio (10-20) Glucose (70-99) mg/dl Lactate (0.4-2.0) mmol/L Calcium (8.5-10.1) mg/dl Magnesium (1.8-2.4) mg/dl Ferritin (8-388) ng/ml Total Bilirubin (0.2-1) mg/dl AST (15-37) U/L ALT (12-78) U/L Alkaline Phosphatase (45-117) U/L Lactate Dehydrogenase 216 (87-241) U/L Troponin I (0-0.045) ng/ml C-Reactive Protein (0-0.29) mg/dl Total Protein (6.4-8.2) gm/dl Albumin (3.4-5.0) gm/dl Globulin (2.5-4.0) gm/dl Albumin/Globulin Ratio (0.9-2) Procalcitonin (0-0.5) ng/ml COVID-19 Eval Order Influ A Molecular Assay (Negative) Influ B Molecular Assay (Negative) SARS-CoV-2, RNA, NAAT (NEGATIVE) Imaging Data Radiologist's Impression: XR chest 1V portable HISTORY: SEPSIS COMPARISON: Chest 07/19/2018. FINDINGS: There are poststernotomy changes. The heart is normal in size. No pleural effusions. No pneumothorax. There is a punctate calcified granuloma within the right midlung zone, unchanged. Otherwise, lungs are clear. No evidence for pulmonary edema. IMPRESSION: No significant change compared to the prior study. No acute process. ACT 112: Negative or not required by law. Electronically signed by: Ulises Whitaker M.D. 09/29/2020 11:48 AM Dictated: 09/29/20 1142Transcribed: 09/29/20 1142 ECG Data Indication: + weakness Rate (beats per minute): 71 Rhythm: + normal sinus ECG Intervals/blocks: + Normal QRS, + Normal VT and + Normal QT-c ECG ST segments: + Normal ST segments [facility] Narrative 1057: The patient was evaluated in room A4. A complete history and physical exam was performed. Patient was seen in full airborne precautions. Patient was seen in N95's, gloves, gowns, face shield by myself and staff. Cardiac monitoring: An order was placed for continuous cardiac monitoring. The monitor shows a rate of 70 with sinus rhythm 1230: Vital signs stable. Labs show a creatinine of 1.78. Potassium 3.2. Troponin elevated at 0.36. Lactic acid elevated at 2.5. Patient is COVID-19 positive. Given patient's elevated troponin, elevated lactic acid level, patient is extremely weak and he will be admitted to the hospital service. Dr. Martin [facility] hospitalist was made aware. 1356: Vital signs stable. Spoke with the patient's son Valentin [phone] who I updated and explained to him that the patient will be admitted for COVID-19. He thanked me for calling him and is asking that we call him on this number for f urther updates. Impression & Plan COVID-19, Sepsis, Elevated troponin Discharge Plan Visit Data Chief Complaint: Weakness Stated Complaint: Weakness, Contact with COVID ED Provider: Silviano Skinner Discharge Problem: COVID-19, Sepsis, Elevated troponin Patient Disposition: Admitted As Inpatient Forms Stand Alone Forms: My [facility] Prescriptions Prescriptions: No Action isosorbide mononitrate 120 mg tablet extended release 24 hr 240 mg PO DAILY Qty: 180 RF: 3 albuterol sulfate 2.5 mg /3 mL (0.083 %) solution for nebulization 2.5 mg INH TID PRN (Reason: shortness of breath or wheezing) Qty: 75 RF: 3 clopidogrel 75 mg tablet 75 mg PO DAILY Qty: 90 RF: 3 pantoprazole 40 mg tablet,delayed release (DR/EC) 40 mg PO DAILY Qty: 90 RF: 3 levothyroxine 75 mcg tablet 75 mcg PO DAILY Qty: 90 RF: 3 rosuvastatin 40 mg tablet 40 mg PO DAILY Qty: 90 RF: 3 aspirin 81 mg tablet,delayed release (DR/EC) 81 mg PO DAILY Qty: 30 RF: 2 Flovent HFA 110 mcg/actuation HFA aerosol inhaler 1 puffs INH BID Qty: 12 RF: 5 lorazepam 0.5 mg tablet 0.5 mg PO DAILY PRN (Reason: anxiety) Qty: 30 RF: 3 nitroglycerin 0.4 mg tablet, sublingual 0.4 mg SL Q5M PRN (Reason: chest pain) Qty: 25 RF: 5 nadolol 20 mg tablet 20 mg PO DAILY RF: 0 Referrals Referrals: Jaquan Giordano III, MD [Primary Care Provider] - Discharge Problem: Sepsis Qualifiers: Sepsis type: sepsis due to unspecified organism Sepsis acute organ dysfunction status: unspecified Qualified Code(s): A41.9 - Sepsis, unspecified organism
[2020-09-29 13:38] LABS: C Reactive Protein 1.92 mg/dl (0-0.29); Ferritin 311.3 ng/ml (8-388)
[2020-09-29] MEDS ORDERED: ONDANSETRON INJ 2 MG/ML 2 ML VIAL IV PRN (14:34)
[2020-09-29] MEDS ORDERED: NITROGLYCERIN SL 0.4 MG/TAB TAB SL PRN (14:34)
[2020-09-29] MEDS ORDERED: LORazepam 0.5 MG TAB PO PRN (14:34)
[2020-09-29] MEDS ORDERED: ALBUTEROL HFA 8 GM INHALER INH PRN (14:34)
--- NOTE | 2020-09-29 16:56 | Electrocardiogram Report ---
Test Reason : Blood Pressure : / mmHG Vent. 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
[2020-09-29] MEDS ORDERED: GLUCOSE 40% GEL 15 GM TUBE PO PRN (20:12)
[2020-09-29] MEDS ORDERED: DEXTROSE 50% 50 ML SYRINGE IV PRN (20:12)
[2020-09-29] MEDS ORDERED: GLUCOSE 10 TABS/TUBE PO PRN (20:12)
[2020-09-29] MEDS ORDERED: CARBOHYDRATES FOR HYPOGLYCEMIA PO PRN (20:12)
[2020-09-29] MEDS ORDERED: GLUCAGON FOR INJ 1 MG VIAL SQ PRN (20:12)
[2020-09-29] MEDS: HEPARIN SOD 5,000 UNIT/0.5 ML VIAL SQ SCH (20:12)
[2020-09-30] MEDS: INSULIN ASPART 100 UNITS/ML 3 ML PEN SC SCH ×3 (00:12→13:14)
[2020-09-30] MEDS: HEPARIN SOD 5,000 UNIT/0.5 ML VIAL SQ SCH ×2 (05:39→15:54)
[2020-09-30] MEDS ORDERED: LEVOTHYROXINE SODIUM 75 MCG TABLET PO SCH (06:30)
[2020-09-30 07:56] LABS: Mean Corpuscular Hgb Conc 33.2 g/dL (32-36)
[2020-09-30 08:19] LABS: Albumin Level 2.5 gm/dl (3.4-5.0); BUN Creatinine Ratio 11.8 (10-20); C Reactive Protein 1.41 mg/dl (0-0.29); Calcium 8.3 mg/dl (8.5-10.1); Creatinine Clr Calc Pharmacy 31.1 ml/min; D Dimer 1870 ug/L FEU (0-500); Est GFR (African American) 59.4; Est GFR (Non-African American) 51.3; Magnesium 2.3 mg/dl (1.8-2.4); Potassium 3.5 mmol/L (3.5-5.1)
[2020-09-30 08:27] LABS: Hematocrit (blood only) 41.3 % (42-52); Hemoglobin 13.7 g/dL (14.0-18.0); Mean Corpuscular Hemoglobin 31.1 pg (25-34); Mean Corpuscular Volume 93.9 fL (80-100); RDW Coefficient of Variation 15.9 % (11.5-14.5); RDW Standard Deviation 54.9 fL (36.4-46.3); White Blood Count 3.21 K/uL (4.8-10.8)
[2020-09-30 08:35] LABS: Albumin Globulin Ratio 0.7 (0.9-2); Bilirubin,Total 0.8 mg/dl (0.2-1); Ferritin 281.1 ng/ml (8-388); Globulin 3.8 gm/dl (2.5-4.0); Phosphorus 2.8 mg/dl (2.5-4.9); Thyroid Stimulating Hormone 11.2 uIu/ml (0.300-4.500); Total Protein 6.3 gm/dl (6.4-8.2)
[2020-09-30] MEDS ORDERED: nadoloL 40 MG TAB PO SCH (09:00)
[2020-09-30] MEDS ORDERED: ROSUVASTATIN CALCIUM 20 MG TAB PO SCH (09:00)
[2020-09-30] MEDS ORDERED: ISOSORBIDE MONO EXTENDED REL 60 MG TABCR PO SCH (09:00)
[2020-09-30] MEDS ORDERED: ASPIRIN 81 MG ECTAB PO SCH (09:00)
[2020-09-30] MEDS ORDERED: PANTOprazole 40 MG TAB PO SCH (09:00)
[2020-09-30] MEDS ORDERED: CLOPIDOGREL BISULFATE 75 MG TAB PO SCH (09:00)
[2020-09-30] MEDS ORDERED: FLUTICASONE FUROATE 200MCG 14 PUFFS/INHALER INH SCH (09:00)
[2020-09-30 09:15] LABS: ALC (manual) 1.49 K/uL (1.2-3.4); ANC (manual) 1.58 K/uL (1.4-6.5); Basophils # (manual) 0.03 K/uL (0-0.2); Basophils % (manual) 0.9 %; Echinocytes 1+; Eosinophils # (manual) 0.05 K/uL (0-0.5); Eosinophils % (manual) 1.7 %; Lymphocytes # (manual) 0.55 K/uL (1.2-3.4); Lymphocytes % (manual) 17.2 %; Mean Platelet Volume 12.9 fL (7.4-10.4); Monocytes # (manual) 0.05 K/uL (0.11-0.59); Monocytes % (manual) 1.7 %; Neutrophils # (manual) 1.58 K/uL (1.4-6.5); Neutrophils % (manual) 49.2 %; Platelet Count 141 K/uL (130-400); Reactive Lymphocytes # (manual) 0.94 K/uL; Reactive Lymphocytes % (manual) 29.3 %
[2020-09-30 09:25] LABS: Estimated Average Glucose 134 mg/dl; Hemoglobin A1C 6.3 % (4.5-5.6)
[2020-09-30] MEDS: SODIUM CHLORIDE 0.9% 1000ML 1,000 ML IV SCH (09:43)
[2020-09-30 11:18] VITALS: O2SAT 95
[2020-09-30 15:45] VITALS: TEMP 97.3
[2020-09-30 16:25] VITALS: BP 108/64; PULSE 61
--- NOTE | 2020-09-30 16:28 | Discharge Summary ---
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 intake. He cannot see for sure exactly how long its been going on and is a little bit of a poor historian. I did talk to his girlfriend on the phone who informed me that she just got out of the hospital with Covid for the last week. She believes that they all got it from a long car ride that they took with the patient's son who also turned out to be positive for Covid. This car ride occurred on 09/15/2020. The patient denies any chest pain or shortness of breath, no cough. No nausea or vomiting, no abdominal pain or diarrhea. He states that he has been able to walk around his house. He has been living alone since his girlfriend was in the hospital last w but she came to check on him yesterday and stayed over night and called the ambulance this morning as she was worried about him. In the ER, he was found to be Covid positive, Negative for flu, and with mildly elevated troponin at 0.36 with ECG showing normal sinus rhythm with PACs, inferior-posterior infarct, and T wave inversion more evident in anterior leads than previous. His creatinine was slightly increased over baseline at 1.78 (baseline 1.5). His procalcitonin was negative. He was also leukopenic and borderline thrombocytopenic. His chest x-ray was clear. In the ER, he was given IV fluids. He will be brought in on observation for cardiac work-up and supportive care with IV fluids for mild renal insufficiency. He is also agreeable to receiving convalescent plasma. He is not hypoxic at all and does not qualify for remdesivir or dexamethasone as he does not have severe Covid disease. Principal Diagnosis covid 19 carditis elevatd troponin Discharge Exam The patient appeared well Vital signs as documented. Lungs are clear to auscultation and appear unlabored Cardiac exam, Rhythm is regular.. Systolic ejection murmur Abdominal exam reveals normal bowel sounds, soft non tender, no masses Extremities are nonedematous and both pedal pulses are normal. Neurologic exam is alert and orientedx2 , no focal loss of strength or sensation Skin is without bruises or rashes Psychologically is without concerns for anxiety or depression. Discharge Data Allergies Allergy/AdvReac Type Severity Reaction Status Date / Time No Known Drug Allergies Allergy Verified 09/29/20 12:50 Consultations 09/29/20 12:28 ED Decision to Admit Stat Hospital Course (1) Elevated troponin: Troponin with mild elevation to 0.36, with underlying known severe CAD. The patient denies any chest pain. ECG without any ischemic changes. does have lateral t wave flattening This is most likely myocardial demand ischemia, it could also be covid carditis Did speak to cardiology office, and given is pre exisiting cardiac condition would not offer intervention or stress unless clinically apparent acs is happening otherwise will continue medical managment -Continue home aspirin, Plavix, isosorbide, nadolol, Crestor (2) Generalized weakness: Secondary to [id number] with hydration will use home decadron did well with PT isabell ' will have home health (3) COVID-19: Most likely contracted this around the same time his girlfriend and his son did on 09/15, but unclear. He is unsure how long he has not been feeling well as he is not the best historian. His girlfriend reported she started having symptoms about 10 days ago and was in the hospital for about 5 days and was just discharged yesterday. He is not hypoxic, his chest x-ray is clear. did recieve convalescent plasma He does not meet criteria for receiving remdesivir will have decadron at home (4) Benign hypertension with chronic kidney disease, stage III: Acute renal insufficiency in the setting of CKD stage III-> resolved Creatinine mildly above baseline at 1.78 today, baseline 1.5 (5) Hyperlipidemia: Continue statin (6) Hypertension: Continue home isosorbide, nadolol (7) Hx of CABG: Noted See elevated troponin above (8) Type 2 diabetes mellitus: This is diet controlled may be temporarily elevarted due to steroids (9) Hypothyroidism: Last TSH 0.2641-year ago tsh is elevated in the face of infection, will recommend pcp follow up Continue home levothyroxine (10) CAD (coronary artery disease): As above Continue home meds (11) COPD (chronic obstructive pulmonary disease): No acute exacerbation Continue home inhaled corticosteroid, albuterol as needed (12) Carotid artery stenosis: Is followed routinely by vascular surgery, is stable and asymptomatic With known 60-79% stenosis of left ICA and less than 50% stenosis of right ICA Continue aspirin, Plavix, rosuvastatin (13) Hypokalemia: Replaced with potassium chloride 20 mill equivalents p.o. x1 Follow BMP in the morning (14) DVT prophylaxis: His girlfriend also had Covid and she can take care of him at home Total Time Total Time Spent Total Time Spent (In Minutes): It required greater than 30 minutes to prepare this patient for discharge Discharge Plan Discharge Items Patient Disposition: Home - Home Health Services Reason For Visit: LOW APPETITE,+TROPONIN,COVID 19 Discharge Diagnosis: covid 19 infection possible carditis elevated troponin Activity: Per Instructions section Activity Comment: gradually increase activity, see pcp for tele follow up this week Non-emergency contact: Primary Care Provider Call non-emergency contact if: you have any medication questions and your symptoms worsen Follow-up/Referrals: Jaquan Giordano III, MD [Primary Care Provider] - Diet: Regular Addtl Attending Provider Instructions: It is very important that you eat and drink well and rest as you recover from your covid infection Coronavirus disease 2019 (COVID-19) is a virus that causes a respiratory i llness. It is caused by a coronavirus called 2019 novel coronavirus (2019-nCoV). There are many types of coronavirus. Coronaviruses are a very common cause of bronchitis. They may sometimes cause lung infection(pneumonia). Symptoms can range from mild to severe respiratory illness. These viruses are also foundin some animals. COVID-19 was first found in people in [facility], in late 2019. In 2020, several cases of COVID-19 have been confirmed in the [place] Public health officials are working to find the source. How the virus spreads is not yet fully known. It may be spread through droplets of fluid that a person coughs or sneezes into the air. It may be spread if you touch a surface with virus on it, such as a handle or object, and then touch your mouth. What are the symptoms of COVID-19? Some people have no symptoms or mild symptoms. Symptoms may appear 2 to 14 days after contact with the virus. Symptoms can include: Fever Coughing Trouble breathing What are possible complications from COVID-19? In many cases, this virus can cause infection (pneumonia) in both lungs. In some cases, this can cause . How is COVID-19 diagnosed? Your healthcare provider will ask about your symptoms. He or she will also ask about your recent travel and contact with sick people. Testing for the virus is only done through the CDC. If yourhealthcare provider thinks you may have COVID- 19, he or she will work with your local health department and the CDC on testing. Follow all instructions from your healthcare provider. COVID-19 is diagnosed by: Nasal and throat swab. A cotton-tipped swab is wiped inside your nose or throat. This is done to check for viruses in your nasal mucus. Sputum culture. A small sample of mucus coughed from your lungs (sputum) is collected if you have a cough. It is checked for the virus. How is COVID-19 treated? There is currently no medicine to treat the virus. Treatment is done to help your body while it fights the virus. This is known as supportive care. Supportive care may include: Pain medicine. These include acetaminophen and ibuprofen. They are used to help ease pain and reduce fever. Bed rest. This helps your body fight the illness. For severe illness, you may need to stay in the hospital. Care during severe illness may include: IV (intravenous) fluids.These are given through a vein to help keep your body hydrated. Oxygen. Supplemental oxygen or ventilation with a breathing machine (ventilator) may be given. This is done to keep enough oxygen in your body. Are you at risk for COVID-19? If youve been to a place where people have been sick with this virus, you are at risk for infection. You are at risk if you: Recently traveled to an affected area Had contact with a sick person who recently traveled to this area Had contact with a person who was diagnosed with COVID-19 How can COVID-19 be prevented? There is no vaccine yet. The best prevention is to not have contact with the virus. The CDC advises that people should not travel to areas where there are COVID-19 outbreaks right now for any reason that is not urgent. To help prevent spreading the infection, wash your hands often, or use an alcohol-basedhand soil sampler. If you are in an area with COVID-19: Wash your hands often. Or use an alcohol-based hand soil sampler often. Only touch your eyes, nose, or mouth with clean hands. Dont have contact with people who are sick. Follow local instructions about being in public. For example, you may be told to not use public transport for a period of time. Stay away from markets that have live or animals. Wash your hands after touching any animals. Don't touch animals that may be sick. Dont share eating or drinking tools with sick people. Dont kiss someone who is sick. Clean surfaces often with disinfectant. If you were in an area with COVID-19 in the last 14 days: Call your healthcare provider. He or she can talk with local health staff to see what action may be needed. Follow all instructions from your provider. Take your temperature every morning and evening for at least 14 days. This is to check for fever. Keep a record of the readings. Keep watch for symptoms of the virus. Tell your provider right away if you have symptoms. If you were in an area with COVID-19 and have a fever or other symptoms: Dont panic. Keep in mind that other illnesses can cause similar symptoms. Stay away from work, school, and public places. Limit physical contact with family members. Don't kiss anyone or share eating or drinking utensils. Clean surfaces you touch with disinfectant. This is to help prevent the virus from spreading. Call your healthcare provider. Explain that you have been exposed to COVID-19 and have symptoms. Do this before going to any hospital. Wait for instructions. Keep in mind that healthcare staff may wear protective equipment such as masks, gowns, gloves, and eye protection. You may be put in a separate room. This is to prevent the possible virus from spreading. Tell the healthcare staff about recent travel. This includes local travel on public transport. Staff may need to find other people you have been in contact with. Follow all instructions the healthcare staff give you. If you have been diagnosed with COVID-19 Follow all instructions from your healthcare provider. Dont leave your home, except to get medical care. Call your healthcare providers office before going. They can prepare and give you instructions. This will help prevent the virus from spreading. Dont go to work, school, or public areas. Dont use public transport or taxis. Stay away from other people in your home. Have them wear face masks around you. Dont share household items or food. Wear a face mask if you can. This includes at home or in a medical facility. Cover your face with a tissue when you cough or sneeze. Throw the tissue away. Wash your hands. Wash your hands often. Caregivers should: Follow all instructions from healthcare staff. Wear a face mask and protective clothing as advised. Wash hands often. Keep track of the sick persons symptoms. Clean surfaces, fabrics, and laundry thoroughly. Keep other people away from the sick person. When to call your healthcare provider Call your healthcare provider: If youve recently traveled and have symptoms If you have been diagnosed with COVID-19 and your symptoms are worse To learn more To find out more about COVID-19, visit the CDC website at www.cdc.gov/coronavirus/2019-ncov/index.html. 3786-[address] [employer]. [address] [place] [address]. All rights reserved. This information is not intended as a substitute for professional medical care. Always follow your healthcare professional's instructions. This information has been adapted from [employer] Pending Studies at Discharge: Yes Stand-Alone Forms: My [facility] [employer] Smoking Cessation Medications and DC Order Prescriptions: New dexamethasone [Decadron] 6 mg tablet 6 mg PO DAILY Qty: 9 RF: 0 Continued isosorbide mononitrate 120 mg tablet extended release 24 hr 240 mg PO DAILY Qty: 180 RF: 3 albuterol sulfate 2.5 mg /3 mL (0.083 %) solution for nebulization 2.5 mg INH TID PRN (Reason: shortness of breath or wheezing) Qty: 75 RF: 3 clopidogrel 75 mg tablet 75 mg PO DAILY Qty: 90 RF: 3 pantoprazole 40 mg tablet,delayed release (DR/EC) 40 mg PO DAILY Qty: 90 RF: 3 levothyroxine 75 mcg tablet 75 mcg PO DAILY Qty: 90 RF: 3 rosuvastatin 40 mg tablet 40 mg PO DAILY Qty: 90 RF: 3 aspirin 81 mg tablet,delayed release (DR/EC) 81 mg PO DAILY Qty: 30 RF: 2 Flovent HFA 110 mcg/actuation HFA aerosol inhaler 1 puffs INH BID Qty: 12 RF: 5 lorazepam 0.5 mg tablet 0.5 mg PO DAILY PRN (Reason: anxiety) Qty: 30 RF: 3 nitroglycerin 0.4 mg tablet, sublingual 0.4 mg SL Q5M PRN (Reason: chest pain) Qty: 25 RF: 5 nadolol 20 mg tablet 20 mg PO DAILY RF: 0 Discharge Orders: Discharge Order (Routine); Ordered 09/30/20 Ordered By: Edward Noble Admission Data Admit Date/Time: 09/29/20 13:34 Attending Provider: Edward Noble Admit Provider: Ladonna Martin Primary Care Provider: Jaquan Giordano III Other Providers: Ladonna Martin Coding Level of Care Code D/C Day Management >30 mins Diagnoses Elevated troponin R77.8 Generalized weakness R53.1 COVID-19 U07.1 Benign hypertension with chronic kidney disease, stage III I12.9; N18.3 Hyperlipidemia E78.5 Hypertension I10 Hx of CABG Z95.1 Type 2 diabetes mellitus E11.9 Hypothyroidism E03.9 CAD (coronary artery disease) I25.10 COPD (chronic obstructive pulmonary disease) J44.9 Carotid artery stenosis I65.29 Hypokalemia E87.6 DVT prophylaxis Z29.9
--- NOTE | 2020-10-01 15:05 | Electrocardiogram Report ---
Test Reason : Blood Pressure : / mmHG Vent. Rate : 057 BPM Atrial Rate : 057 BPM P-R Int : 174 ms QRS Dur : 090 ms QT Int : 492 ms P-R-T Axes : 042 -66 039 degrees QTc Int : 478 ms Sinus bradycardia with Premature atrial complexes Left axis deviation Inferior-posterior infarct (cited on or before 24-JAN-2008) Abnormal ECG When compared with ECG of 29-SEP-2020 10:40, No significant change was found Confirmed by Ubaldo Jiménez ([id number]) on 10/01/2020 3:05:16 PM Referred By: REFERRED SELF Confirmed By:Ubaldo Jiménez
== END 2020-09-30 17:30 | disposition home health service (06) ==
LOC: ED 10:33 → 2S 10:33 → SUATTDRO 13:34 → 2S 14:03

== ENCOUNTER 2022-09-11 16:47 | Inpatient (IN) ==
[2022-09-11 17:32] LABS: Hematocrit (blood only) 47.1 % (40.1-51.0); Hemoglobin 16.2 g/dl (14.0-18.0); Mean Corpuscular Hemoglobin 33.7 pg (25.0-34.0); Mean Corpuscular Hgb Conc 34.4 g/dL (32.0-36.0); Mean Corpuscular Volume 97.9 fL (80.0-100.0); Mean Platelet Volume 12.3 fL (9.4-12.4); Platelet Count 173 K/uL (130-400); RDW Coefficient of Variation 15.7 % (11.5-14.5); RDW Standard Deviation 56.6 fL (36.4-46.3); Red Blood Count 4.81 M/uL (4.63-6.08); White Blood Count 10.79 K/ul (4.8-10.8)
[2022-09-11] MEDS ORDERED: SODIUM CHLORIDE 0.9% 1000ML 1,000 ML IV STA ×2 (17:42→17:48)
[2022-09-11] MEDS ORDERED: SODIUM CHLORIDE 0.9% 1000ML 500 ML IV ONE (17:48)
[2022-09-11 17:54] LABS: Basophils # (auto) 0.02 K/uL (0-0.2); Basophils % (auto) 0.2 %; Echinocytes 1+; Immature Granulocytes # (auto) 0.07 K/uL (0.00-0.02); Immature Granulocytes % (auto) 0.6 %; Lymphocytes # (auto) 0.42 K/uL (1.2-3.4); Lymphocytes % (auto) 3.9 %; Monocytes # (auto) 0.43 K/uL (0.24-0.82); Neutrophils # (auto) 9.85 K/uL (1.4-6.5); Neutrophils % (auto) 91.3 %; Polychromasia 1+
[2022-09-11 17:56] LABS: Albumin Globulin Ratio 0.8 (0.9-2); Albumin Level 3.2 gm/dl (3.4-5.0); BUN Creatinine Ratio 8.5 (10-20); Bilirubin,Total 1.2 mg/dl (0.2-1.0); Calcium 9.2 mg/dl (8.5-10.1); Creatinine Clr Calc Pharmacy 11.9 ml/min; Est GFR (African American) 20.6 ml/min; Est GFR (Non-African American) 17.8 ml/min; Potassium 2.7 mmol/L (3.5-5.1); Total Protein 7.2 gm/dl (6.0-8.3)
--- NOTE | 2022-09-11 18:07 | XRay Report ---
XR chest 1V portable CLINICAL HISTORY: Cough. COMPARISON STUDY: Chest radiograph September 29, 2020. FINDINGS: No pneumothorax or pleural effusion is present. No consolidation is identified. Cardiac siz e is normal. Mediastinal contours are normal. There are are mediastinal surgical clips and median kale rnotomy wires. IMPRESSION: No acute cardiopulmonary findings. No significant change in appearance of the chest. ACT 112: Negative or not required by law. Electronically signed by: Daljit Conner M.D. 09/11/2022 6:05 PM
--- NOTE | 2022-09-11 18:49 | CT Scan Report ---
CT OF THE HEAD WITHOUT CONTRAST CLINICAL HISTORY: Fall. COMPARISON STUDY: Head CT November 05, 2015. MRI of the brain November 06, 2015. TECHNIQUE: Helical axial images of the head were obtained without IV contrast. Automated exposure con trol was utilized for the study. A dose lowering technique was utilized adhering to the principles o f ALARA. FINDINGS: No acute intracranial hemorrhage, midline shift or mass effect is present. The ventricular system is unremarkable. The basal cisterns are patent. No extra-axial collections are present. There are no findings to suggest acute dural sinus thrombosis or acute territorial infarct. White matter hy podensity suggests small vessel disease. 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 Basal ganglia calcification is incidentally noted. May be old lacunar infarcts within the right cere bellar hemisphere. No acute calvarial fracture is present. IMPRESSION: 1. No acute intracranial findings. 2. No acute calvarial fracture. ACT 112: Negative or not required by law. Electronically signed by: Daljit Conner M.D. 09/11/2022 6:47 PM
--- NOTE | 2022-09-11 18:53 | CT Scan Report ---
CT OF THE CERVICAL SPINE WITHOUT CONTRAST CLINICAL HISTORY: fall COMPARISON STUDY: Cervical spine radiograph June 27, 2016. CT of the neck November 17, 2015. TECHNIQUE: Helical axial images of the cervical spine were obtained without IV contrast. Sagittal a nd coronal reconstructions were viewed. Automated exposure control was utilized for the study. A do se lowering technique was utilized adhering to the principles of ALARA. FINDINGS: Alignment of the cervical spine is anatomic. Vertebral body heights are maintained. No acut e cervical spine fracture or subluxation is present. There is no prevertebral edema. Facet joints are intact. Severe multilevel facet arthrosis is present. There is moderate multilevel degenerative dis c disease. Degenerative changes at the C1-C2 articulation are noted. Biapical opacities are unchange d and favor scarring. IMPRESSION: No acute cervical spine fracture or subluxation. ACT 112: Negative or not required by law. Electronically signed by: Daljit Conner M.D. 09/11/2022 6:51 PM
--- NOTE | 2022-09-11 19:09 | CT Scan Report ---
CT OF THE ABDOMEN AND PELVIS WITHOUT CONTRAST CLINICAL HISTORY: right flank pain, fall COMPARISON STUDY: CT of the abdomen and pelvis April 14, 2017. TECHNIQUE: Axial images of the abdomen and pelvis were obtained without IV contrast. Images were revi ewed in the axial, sagittal, and coronal planes. Automated exposure control was utilized for the rhina dy. A dose lowering technique was utilized adhering to the principles of ALARA. FINDINGS: Extensive coronary artery calcification is incidentally noted. Borderline dilatation of vis ualized portions of the ascending aorta is unchanged. No hemoperitoneum or pneumoperitoneum is presen t. Solid abdominal viscera are suboptimally assessed on this unenhanced exam. However, there is no ev idence for traumatic injury to the liver, spleen, adrenal glands, kidneys or pancreas. Gallbladder di stention is noted without pericholecystic stranding. There is no free fluid. There is no evidence for a bowel obstruction. Colonic diverticulosis is noted without evidence for acute diverticulitis. Ceci ral bladder diverticula are present. These are shown on prior CT. Right femoral internal fixation is noted. Congenital deformity of T12 is present. No acute fracture is identified within the lumbar spin e, pelvis or hips. There are no suspicious osseous lesions. Multilevel degenerative changes within jessica mbar spine are present. IMPRESSION: 1. No acute traumatic findings within the abdomen or pelvis on unenhanced exam. 2. Mild gallbladder distention. No pericholecystic stranding. An upper quadrant pain, ultrasound is r ecommended. 3. Ground glass opacities within the lower lungs which may be infectious or atelectatic. Alveolar aria ma is also within the differential. 4. No bowel obstruction. ACT 112: Negative or not required by law. Electronically signed by: Daljit Conner M.D. 09/11/2022 7:06 PM
[2022-09-11] MEDS ORDERED: POTASSIUM CHLORIDE / WTR 10 MEQ/100 ML PLCT IV ONE ×2 (19:10→22:56)
--- NOTE | 2022-09-11 19:34 | Emergency Department Note ---
Impression & Plan Acute renal failure, Acute hypokalemia, Generalized weakness, Fall ED Provider Note INFORMANT: Patient and family ED PROVIDER(S): Jacob Spaulding MD CHIEF COMPLAINT: Fall PLAN: Disposition: Admitted Condition: Good Outpatient prescription management: none Referral: None MEDICAL DECISION MAKING: Patient presented because of a fall. He was weak. A work-up was initiated. The patient had negative CT imaging. His ECG showed a sinus tachycardia. Patient was found to have an unremarkable CBC. His chemistry panel revealed hypokalemia and acute renal failure. Patient was given a small dose of IV potassium. He was hydrated. Further management will be necessary in the hospital. Family and patient updated. Consultation was made with Dr. Panfilo Harris of the [facility] service. Patient was evaluated in the ER for further management. Triage Nursing notes reviewed and agree them. Vital Signs: reviewed and remarkable for no significant abnormalities Differential diagnosis: Infection, dehydration, metabolic abnormality, hypo/hyperglycemia, electrolyte disturbance, anemia, hypoxia, cardiac sources, intracerebral event, toxicologic, neurologic, as well as other pathologies. Diagnostics interpreted by me: ECG: Twelve-lead ECG reveals sinus tachycardia 103 bpm. Premature supraventricular contractions and left axis deviation. Nonspecific ST. Poor ba seline data interferes with interpretation. Cardiac Monitoring: Cardiac monitoring ordered by me: The patient was placed on continuous cardiac monitoring and observed. It revealed a sinus tachycardic rhythm at 101 beats per minute without ectopy or evidence of dysrhythmia. Imaging studies: CT scan of the head and cervical spine negative for acute process. CT scan of the abdomen pelvis did not reveal any acute pathology. Mild distention of the gallbladder. Radiology recommended ultrasound. This ordered. Pending at this time. HPI: The patient is a 86year old male who presents to the Emergency Room with complaints of a fall. This started today and is described by the patient sign. The patient reportedly fell earlier and was on the ground for a few hours per the son. He refused EMS transport at the time. He then complained of some neck pain and right lower quadrant abdominal pain per the son. EMS was summoned and he agreed for transfer to the hospital. The patient also notes the following associated symptoms, generalized weakness. Son also was concerned as the patient has lost significant amount of weight.. The patient has been given no medication for relieving factors. Current pain is rated as 3/10. Pt denies LOC, headache, fevers, chills, diaphoresis, visual changes, chest pain, breathing difficulties, nausea, vomiting, abdominal pain, back pain, melena, hematochezia, urinary symptoms, numbness, lymphadenopathy, rash, or other complaints. ROS: See above HPI for pertinent positives & negatives. A total of 10 systems reviewed and were otherwise negative. PAST MEDICAL HISTORY:See Below , CAD PAST SURGICAL HISTORY:See Below, coronary stent FAMILY HISTORY:See Below SOCIAL HISTORY:See Below, retired HOME MEDICATIONS:See Below ALLERGIES:See Below VITALS:See Below PHYSICAL EXAMINATION: GENERAL: Awake, alert, frail and gaunt-appearing, in no distress HENT: Normocephalic, atraumatic. Oropharynx unremarkable. EYES: Normal conjunctiva. Sclera non-icteric. NECK: Inspection normal. Non-tender. Supple. No nuchal rigidity. FROM. No masses. RESPIRATORY: Clear to auscultation. No wheezes. No rales. Normal respiratory effort. CARDIAC: Normal rate. Normal rhythm. No murmurs. No rubs. Extremities warm and well perfused. Pulses equal. No JVD. GI: Soft, non-distended. Right lower quadrant tenderness to palpation. No roselyn ound or guarding. No masses. RECTAL: Deferred. MUSCULOSKELETAL: Atraumatic. Chest examination reveals no tenderness. The back is symmetrical on inspection without obvious abnormality. There is no CVA tenderness to palpation. No joint edema. LOWER EXTREMITIES: Calves are equal size bilaterally and non-tender. No edema. No discoloration. NEURO: Normal sensorium. No sensory or motor deficits noted. SKIN: No rash or jaundice noted. Jacob Spaulding MD Past Med/Surg History Medical History Anemia Anxiety disorder Arthritis Atherosclerosis of coronary artery bypass graft Carotid artery stenosis Cataract Emphysema, unspecified Generalized weakness Hip fracture, right Hyperlipidemia Hypertension Hypothyroidism Obstructive sleep apnea Past myocardial infarction Renal insufficiency Sleep apnea Stenosis of both internal carotid arteries Stroke Type 2 diabetes mellitus Vocal cord paresis Surgical History H/O sinus surgery History of skin surgery removal of skin cancer from R cheek on face Hx of appendectomy Hx of CABG Hx of transurethral resection of prostate S/P coronary artery stent placement Family History Brother Cancer of unknown origin Son Diabetes Hypertension Myocardial infarction Daughter Diabetes Denies family history of Ovarian cancer Prostate cancer Breast cancer Colorectal cancer Social History Smoking Status: Former smoker Tobacco Type: Cigarettes Age Started Using Tobacco: 18; Age Quit Using Tobacco: 59; packs per day: 1; Years Smoked: 41; Cigarettes Per Day: 20; Number of Years Since Quit: 24; Second Hand Exposure: No; Hx Alcohol Use: No Hx Substance Use: No Preferred Language: Ivorian Communication Ability: Effective Visual Impairment: No Limitations Hearing Ability: Hard of Hearing Die Cutter Diamond Required: No Beliefs That Will Affect Care: None marital status: / Current Living Situation: Alone Current Living Situation Comment: life partner named Ainsley was staying sometimes, not currently current occupational status: retired current occupation: retired from career as singleton as [employer] Feels Safe at Home: Yes Childhood Exposure to Second-Hand Smoke: Yes Dental Care, Regularly: No Physical Activity Frequency: Does not Exercise Seatbelt Use: always Sunscreen Use: No Assistive Devices: Cane Allergies Allergies Allergy/AdvReac Type Severity Reaction Status Date / Time No Known Allergies Allergy Verified 09/11/22 19:37 Home Meds Previous Rx's Medication Instructions Recorded aspirin 81 mg tablet,delayed 81 mg PO DAILY #30 tabs 07/24/19 release fluticasone propionate 110 1 puffs inhalation BID #12 grams 07/24/19 mcg/actuation HFA aerosol inhaler (Flovent HFA) albuterol sulfate 2.5 mg/3 mL 2.5 mg (3 mL) inhalation TID PRN 06/25/20 (0.083 %) solution for nebulization shortness of breath or wheezing #75 mL clopidogrel 75 mg tablet (Plavix) 75 mg PO DAILY #90 tabs 10/23/20 isosorbide mononitrate 120 mg 240 mg PO DAILY #180 tabs 10/23/20 tablet,extended release 24 hr pantoprazole 40 mg tablet,delayed 40 mg PO DAILY #90 tabs 01/08/21 release mirtazapine 7.5 mg tablet 7.5 mg PO DAILY #90 tabs 01/15/21 nadolol 20 mg tablet 20 mg PO DAILY #135 tabs 02/25/21 rosuvastatin 40 mg tablet 40 mg PO DAILY #90 tabs 05/31/21 levothyroxine 100 mcg tablet 100 mcg PO DAILY #90 tabs 12/24/21 nitroglycerin 0.4 mg sublingual 0.4 mg sublingual Q5M PRN chest 07/22/22 tablet pain #25 tabs Results & Data (ED) Vital Signs Vital Signs - 24 hr 09/11/22 17:21 09/11/22 18:10 09/11/22 17:30 Temperature 37.2 C Temperature Source Oral Pulse Rate 101 H Pulse Rate [Apical] Pulse Rate from SpO2 Sensor Pulse Rhythm Regular Pulse Strength Normal Respiratory Rate 20 Respiratory Effort / Characteristics Non-Labored Respiratory Depth Normal Respiratory Pattern Regular Blood Pressure 133/89 133/89 Blood Pressure [Right Arm] Blood Pressure Mean 103 103 Blood Pressure Mean [Right Arm] Blood Pressure Position Lying Pulse Oximetry 98 Oxygen Delivery Method Room Air Room Air Oxygen Flow Rate Sepsis Recent Fever Within 48 Hours No Sepsis New/Unexplained Change in Mental Status N/A Sepsis Action Taken by Nursing No Action Required 09/11/22 17:30 09/11/22 18:00 09/11/22 18:00 Temperature Temperature Source Pulse Rate 101 H Pulse Rate [Apical] Pulse Rate from SpO2 Sensor 93 H 93 H Pulse Rhythm Pulse Strength Respiratory Rate 22 22 Respiratory Effort / Characteristics Respiratory Depth Respiratory Pattern Blood Pressure 131/93 Blood Pressure [Right Arm] Blood Pressure Mean 105 Blood Pressure Mean [Right Arm] Blood Pressure Position Pulse Oximetry 98 93 Oxygen Delivery Method Room Air Room Air Oxygen Flow Rate Sepsis Recent Fever Within 48 Hours Sepsis New/Unexplained Change in Mental Status Sepsis Action Taken by Nursing 09/11/22 20:09 Temperature Temperature Source Pulse Rate Pulse Rate [Apical] 88 Pulse Rate from SpO2 Sensor Pulse Rhythm Pulse Strength Respiratory Rate 22 Respiratory Effort / Characteristics Non-Labored Spontaneous Respiratory Depth Normal Respiratory Pattern Regular Blood Pressure Blood Pressure [Right Arm] 168/111 H Blood Pressure Mean Blood Pressure Mean [Right Arm] 130 Blood Pressure Position Pulse Oximetry 95 Oxygen Delivery Method Nasal Cannula Oxygen Flow Rate 3 Sepsis Recent Fever Within 48 Hours Sepsis New/Unexplained Change in Mental Status Sepsis Action Taken by Nursing Laboratory Data Result diagrams: 09/11/22 17:20 09/11/22 17:20 Lab Results 09/11/22 09/11/22 09/11/22 Range/Units 17:20 17:20 17:20 WBC 10.79 (4.8-10.8) K/ul RBC 4.81 (4.63-6.08) M/uL Hgb 16.2 (14.0-18.0) g/dl Hct 47.1 (40.1-51.0) % MCV 97.9 (80.0-100.0) fL MCH 33.7 (25.0-34.0) pg MCHC 34.4 (32.0-36.0) g/dL RDW Std Deviation 56.6 H (36.4-46.3) fL RDW Coeff of Pratik 15.7 H (11.5-14.5) % Plt Count 173 (130-400) K/uL MPV 12.3 (9.4-12.4) fL Immature Gran % (Auto) 0.6 % Neut % (Auto) 91.3 % Lymph % (Auto) 3.9 % Kent % (Auto) 4.0 % Eos % (Auto) 0.0 % Baso % (Auto) 0.2 % Neut # (Auto) 9.85 H (1.4-6.5) K/uL Lymph # (Auto) 0.42 L (1.2-3.4) K/uL Kent # (Auto) 0.43 (0.24-0.82) K/uL Eos # (Auto) 0.00 (0-0.50) K/uL Baso # (Auto) 0.02 (0-0.2) K/uL Immature Gran # (Auto) 0.07 H (0.00-0.02) K/uL Polychromasia 1+ Echinocytes 1+ Sodium 143 (136-145) mmol/L Potassium 2.7 L (3.5-5.1) mmol/L Chloride 100 (98-107) mmol/L Carbon Dioxide 26 (21-32) mmol/L Anion Gap 17 H (3-11) BUN 26 H (6-23) mg/dl Creatinine 3.06 H (0.6-1.4) mg/dl Est Cr Clr Drug Dosing 11.9 ml/min Est GFR ( Amer) 20.6 ml/min Est GFR (Non-Af Amer) 17.8 ml/min BUN/Creatinine Ratio 8.5 L (10-20) Glucose 209 H (70-99(Fasting)) mg/dl Calcium 9.2 (8.5-10.1) mg/dl Magnesium (1.7-2.4) mg/dl Total Bilirubin 1.2 H (0.2-1.0) mg/dl AST 60 H (13-39) U/L ALT 17 (7-52) U/L Alkaline Phosphatase 97 (34-104) U/L Total Creatine Kinase 1300 H (30-223) U/L Total Protein 7.2 (6.0-8.3) gm/dl Albumin 3.2 L (3.4-5.0) gm/dl Globulin 4.0 (2.5-4.0) gm/dl Albumin/Globulin Ratio 0.8 L (0.9-2) Lipase 13 (11-82) U/L TSH (0.300-4.500) uIu/ml Free T4 (0.61-1.60) ng/dl SARS-CoV-2, RNA, NAAT (NEGATIVE) 09/11/22 09/11/22 09/11/22 Range/Units 17:20 17:20 19:35 WBC (4.8-10.8) K/ul RBC (4.63-6.08) M/uL Hgb (14.0-18.0) g/dl Hct (40.1-51.0) % MCV (80.0-100.0) fL MCH (25.0-34.0) pg MCHC (32.0-36.0) g/dL RDW Std Deviation (36.4-46.3) fL RDW Coeff of Pratki (11.5-14.5) % Plt Count (130-400) K/uL MPV (9.4-12.4) fL Immature Gran % (Auto) % Neut % (Auto) % Lymph % (Auto) % Kent % (Auto) % Eos % (Auto) % Baso % (Auto) % Neut # (Auto) (1.4-6.5) K/uL Lymph # (Auto) (1.2-3.4) K/uL Kent # (Auto) (0.24-0.82) K/uL Eos # (Auto) (0-0.50) K/uL Baso # (Auto) (0-0.2) K/uL Immature Gran # (Auto) (0.00-0.02) K/uL Polychromasia Echinocytes Sodium (136-145) mmol/L Potassium (3.5-5.1) mmol/L Chloride (98-107) mmol/L Carbon Dioxide (21-32) mmol/L Anion Gap (3-11) BUN (6-23) mg/dl Creatinine (0.6-1.4) mg/dl Est Cr Clr Drug Dosing ml/min Est GFR ( Amer) ml/min Est GFR (Non-Af Amer) ml/min BUN/Creatinine Ratio (10-20) Glucose (70-99(Fasting)) mg/dl Calcium (8.5-10.1) mg/dl Magnesium 2.8 H (1.7-2.4) mg/dl Total Bilirubin (0.2-1.0) mg/dl AST (13-39) U/L ALT (7-52) U/L Alkaline Phosphatase (34-104) U/L Total Creatine Kinase (30-223) U/L Total Protein (6.0-8.3) gm/dl Albumin (3.4-5.0) gm/dl Globulin (2.5-4.0) gm/dl Albumin/Globulin Ratio (0.9-2) Lipase (11-82) U/L TSH 7.560 H (0.300-4.500) uIu/ml Free T4 1.08 (0.61-1.60) ng/dl SARS-CoV-2, RNA, NAAT NEGATIVE (NEGATIVE) Administered Medications Lactated Ringer's (Lr) 1,000 mls @ 125 mls/hr IV .Q8H EVERARDO Stop: 10/11/22 20:59 Last Admin: 09/11/22 21:43 Dose: 125 mls/hr Documented By: MED Discontinued Medications Sodium Chloride (Nss 1000ml) 1,000 mls @ 125 mls/hr IV .Q8H STA Stop: 09/12/22 01:41 Last Admin: 09/11/22 23:01 Dose: Not Given Documented By: CF Sodium Chloride (Nss 1000ml) 1,000 mls @ 125 mls/hr IV .Q8H STA Stop: 09/12/22 01:47 Last Admin: 09/11/22 23:01 Dose: Not Given Documented By: LAKEISHA Sodium Chloride (Nss 1000ml) 500 mls @ 999 mls/hr IV .Q31M ONE Stop: 09/11/22 18:18 Last Infusion: 09/11/22 23:01 Dose: 0 mls/hr Documented By: Admin: 09/11/22 18:07 Dose: 999 mls/hr Documented By: MONICA Potassium Chloride (K Fantasma / Wtr) 10 meq in 100 mls @ 100 mls/hr IV ONE ONE; Protocol Stop: 09/11/22 20:09 Last Infusion: 09/11/22 23:00 Dose: 0 mls/hr Documented By: Admin: 09/11/22 20:16 Dose: 100 mls/hr Documented By: MED Imaging Data Radiologist's Impression: Abdomen/Pelvis CT 09/11/22 17:41 CT OF THE ABDOMEN AND PELVIS WITHOUT CONTRAST CLINICAL HISTORY: right flank pain, fall COMPARISON STUDY: CT of the abdomen and pelvis April 14, 2017. TECHNIQUE: Axial images of the abdomen and pelvis were obtained without IV contrast. Images were reviewed in the axial, sagittal, and coronal planes. Automated exposure control was utilized for the study. A dose lowering technique was utilized adhering to the principles of ALARA. FINDINGS: Extensive coronary artery calcification is incidentally noted. Borderline dilatation of visualized portions of the ascending aorta is unchanged. No hemoperitoneum or pneumoperitoneum is present. Solid abdominal viscera are suboptimally assessed on this unenhanced exam. However, there is no evidence for traumatic injury to the liver, spleen, adrenal glands, kidneys or pancreas. Gallbladder distention is noted without pericholecystic stranding. There is no free fluid. There is no evidence for a bowel obstruction. Colonic diverticulosis is noted without evidence for acute diverticulitis. Several bl adder diverticula are present. These are shown on prior CT. Right femoral internal fixation is noted. Congenital deformity of T12 is present. No acute fracture is identified within the lumbar spine, pelvis or hips. There are no suspicious osseous lesions. Multilevel degenerative changes within lumbar spine are present. IMPRESSION: 1. No acute traumatic findings within the abdomen or pelvis on unenhanced exam. 2. Mild gallbladder distention. No pericholecystic stranding. An upper quadrant pain, ultrasound is recommended. 3. Ground glass opacities within the lower lungs which may be infectious or atelectatic. Alveolar edema is also within the differential. 4. No bowel obstruction. ACT 112: Negative or not required by law. Electronically signed by: Daljit Conner M.D. 09/11/2022 7:[address] 09/11/22 17:41 CT OF THE CERVICAL SPINE WITHOUT CONTRAST CLINICAL HISTORY: fall COMPARISON STUDY: Cervical spine radiograph June 27, 2016. CT of the neck November 17, 2015. TECHNIQUE: Helical axial images of the cervical spine were obtained without IV contrast. Sagittal and coronal reconstructions were viewed. Automated exposure control was utilized for the study. A dose lowering technique was utilized adhering to the principles of ALARA. FINDINGS: Alignment of the cervical spine is anatomic. Vertebral body heights are maintained. No acute cervical spine fracture or subluxation is present. There is no prevertebral edema. Facet joints are intact. Severe multilevel facet arthrosis is present. There is moderate multilevel degenerative disc disease. Degenerative changes at the C1-C2 articulation are noted. Biapical opacities are unchanged and favor scarring. IMPRESSION: No acute cervical spine fracture or subluxation. ACT 112: Negative or not required by law. Electronically signed by: Daljit Conner M.D. 09/11/2022 6:[address] 09/11/22 17:41 CT OF THE HEAD WITHOUT CONTRAST CLINICAL HISTORY: Fall. COMPARISON STUDY: Head CT November 05, 2015. MRI of the brain November 06, 2015. TECHNIQUE: Helical axial images of the head were obtained without IV contrast. Automated exposure control was utilized for the study. A dose lowering technique was utilized adhering to the principles of ALARA. FINDINGS: No acute intracranial hemorrhage, midline shift or mass effect is present. The ventricular system is unremarkable. The basal cisterns are patent. No extra-axial collections are present. There are no findings to suggest acute dural sinus thrombosis or acute territorial infarct. White matter hypodensity suggests small vessel disease. 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 Basal ganglia calcification is incidentally noted. May be old lacunar infarcts within the right cerebellar hemisphere. No acute calvarial fracture is present. IMPRESSION: 1. No acute intracranial findings. 2. No acute calvarial fracture. ACT 112: Negative or not required by law. Electronically signed by: Daljit Conner M.D. 09/11/2022 6:47 PM Chest X-Ray 09/11/22 17:42 XR chest 1V portable CLINICAL HISTORY: Cough. COMPARISON STUDY: Chest radiograph September 29, 2020. FINDINGS: No pneumothorax or pleural effusion is present. No consolidation is identified. Cardiac size is normal. Mediastinal contours are normal. There are are mediastinal surgical clips and median sternotomy wires. IMPRESSION: No acute cardiopulmonary findings. No significant change in appearance of the chest. ACT 112: Negative or not required by law. Electronically signed by: Daljit Conner M.D. 09/11/2022 6:05 PM Discharge Plan Visit Data Chief Complaint: Fall Stated Complaint: AB PAIN, WEAKNESS ED Provider: Jacob Spaulding Discharge Problem: Acute renal failure, Acute hypokalemia, Generalized weakness, Fall Patient Disposition: Admitted As Inpatient Discharge Instructions Interventions: ED Discharge Assessment Last Done: 09/11/22 23:17
--- NOTE | 2022-09-11 20:08 | History & Physical Report ---
Date of Service September 11, 2022 Assessment & Plan (1) Rhabdomyolysis: Plan: - Fall within last 24 hours. Unknown down time, with CK 1300, Cr up to 3.06, low K 2.7, AST and t bili increased. - Aggressive IVF, repeat CK and BMP in AM. (2) Acute renal failure: Plan: - Creatinine elevated at 3.06, likely due to severe dehydration, poor appetite at home, rhabdo - Creatinine checked in our system was from 2 years ago, 1.29 at that time. - Hydrate as above, repeat labs in the a.m. - Avoid nephrotoxins, renally dose medications as able. (3) Acute hypokalemia: Plan: - 2.7, suspect due to poor appetite given frail presentation and documented 20+ lb weight loss, dementia and issues taking meds at home/preparing meals. - Replete with IV K riders given with fluids. Repleting with 2 K riders overnight given severe KANDY. - Patient very dry, likely unable to swallow PO KCl. - Repeat w/ AM labs. (4) Fall: Plan: - Fall w/in last 24 hours, unknown how it occurred, CT imaging negative for trauma. - Suspect in setting of severe dementia, weakness, dehydration. - Hydrating as above for rhabdo, replete electrolytes potassium. - PT/OT to eval. (5) Dementia: Plan: - Continue mirtazapine. - Speech consulted given concern for aspiration. (6) CAD (coronary artery disease): Plan: - History of CABG and stents. - Continue aspirin, Plavix, Imdur, nadolol, statin. - Nitro as needed chest pain. (7) COPD (chronic obstructive pulmonary disease): Plan: - Continue home inhalers. - On 3L NC since arrival last EMS could not cough her pulse ox reading. SpO2 > 92% without, accessory respiratory muscle use. (8) Hypothyroidism: Plan: - Continue levothyroxine. - TSH last checked as outpatient in December, was 3210. TSH checked on admission, 7.5 with free T4 pending. (9) Type 2 diabetes mellitus: Plan: - Documented history of, no med. A1c in Feb 5.9%, elevated glucose in ED 209. Plan -Admit to PCU. - SCDs + Heparin for VTE ppx. - Conditional Code: NO CPR/defib/ACLS protocol, yes to invasive airway/intubation History of Present Illness Chief Complaint: falls at home Primary Care Provider: Sloane Talbot DO Hal Dailey is an 86 y/o male with a PMH significant for CAD, COPD, hypothyroidism, GERD, and severe dementia who presents from home today after a fall. He reportedly fell this afternoon and was on the ground for several hours before his son was aware and able to call EMS. He initially refused transfer to hospital but EMS was summoned back after he complained to son of neck and abdominal pain. Patient lives alone and has caregiver services Monday, and every other Monday. He was last seen Monday afternoon, and son was the one who was visiting him today and found him on the ground, therefore the fall could have occurred at any point in last 24 hours. He is currently not complaining of any pain and is very thirsty and would like to drink something. He is a very poor historian, so majority of history is obtained from son at bedside. He has been declining for some time, sleeping majority of the day, has barely an appetite, is weak and dementia is progressed to the point that he cannot live alone, has not been taking medications. Family initially wanted him to be placed in a penitentiary facility, however patient adamantly refused, so they have settled for home health 3 days/week. Patient continues to decline despite the services. Upon presentation to the ED, pt is mildly tachycardic, otherwise vital signs within normal limits and stable. Significant for potassium of 2.7, CK of 1300, creatinine 3.06, prior labs are from 2019 however cr was < 2 then. Also with AG 17, T bili 1.2, AST 60. Head CT and C-spine CT remarkable for acute injury. CXR unremarkable. CT A/P without evidence of acute traumatic injuries. There is mild gallbladder distention without pericholecystic stranding, as well as groundglass opacities within the lower lungs, other infectious or atelectatic. No evidence of bowel obstruction. Allergies Allergy/AdvReac Type Severity Reaction Status Date / Time No Known Allergies Allergy Verified 09/11/22 19:37 Home Medications Medication Instructions Recorded Confirmed Type aspirin 81 mg tablet,delayed 81 mg PO DAILY #30 tabs 07/24/19 09/11/22 Rx release fluticasone propionate 110 1 puffs inhalation BID #12 grams 07/24/19 09/11/22 Rx mcg/actuation HFA aerosol inhaler (Flovent HFA) albuterol sulfate 2.5 mg/3 mL 2.5 mg (3 mL) inhalation TID PRN 06/25/20 09/11/22 Rx (0.083 %) solution for nebulization shortness of breath or wheezing #75 mL clopidogrel 75 mg tablet (Plavix) 75 mg PO DAILY #90 tabs 10/23/20 09/11/22 Rx isosorbide mononitrate 120 mg 240 mg PO DAILY #180 tabs 10/23/20 09/11/22 Rx tablet,extended release 24 hr pantoprazole 40 mg tablet,delayed 40 mg PO DAILY #90 tabs 01/08/21 09/11/22 Rx release mirtazapine 7.5 mg tablet 7.5 mg PO DAILY #90 tabs 01/15/21 09/11/22 Rx nadolol 20 mg tablet 20 mg PO DAILY #135 tabs 02/25/21 09/11/22 Rx rosuvastatin 40 mg tablet 40 mg PO DAILY #90 tabs 05/31/21 09/11/22 Rx levothyroxine 100 mcg tablet 100 mcg PO DAILY #90 tabs 12/24/21 09/11/22 Rx nitroglycerin 0.4 mg sublingual 0.4 mg sublingual Q5M PRN chest 07/22/22 09/11/22 Rx tablet pain #25 tabs Past Med/Surg History Medical History Anemia Anxiety disorder Arthritis Atherosclerosis of coronary artery bypass graft Carotid artery stenosis Cataract Emphysema, unspecified Generalized weakness Hip fracture, right Hyperlipidemia Hypertension Hypothyroidism Obstructive sleep apnea Past myocardial infarction Renal insufficiency Sleep apnea Stenosis of both internal carotid arteries Stroke Type 2 diabetes mellitus Vocal cord paresis Surgical History H/O sinus surgery History of skin surgery removal of skin cancer from R cheek on face Hx of appendectomy Hx of CABG Hx of transurethral resection of prostate S/P coronary artery stent placement Family History Brother Cancer of unknown origin Son Diabetes Hypertension Myocardial infarction Daughter Diabetes Denies family history of Ovarian cancer Prostate cancer Breast cancer Colorectal cancer Social History Smoking Status: Former smoker Tobacco Type: Cigarettes Age Started Using Tobacco: 18; Age Quit Using Tobacco: 59; packs per day: 1; Cigarettes Per Day: 20; Second Hand Exposure: No; Hx Alcohol Use: No Hx Substance Use: No Preferred Language: Jamaican Communication Ability: Impaired Communication Ability Comment: dementia at baseline Visual Impairment: No Limitations Hearing Ability: Hard of Hearing Head Silverman Required: No Beliefs That Will Affect Care: None marital status: / current occupational status: retired current occupation: retired from career as singleton as [employer] Feels Safe at Home: Yes Childhood Exposure to Second-Hand Smoke: Yes Dental Care, Regularly: No Physical Activity Frequency: Does not Exercise Seatbelt Use: always Sunscreen Use: No Assistive Devices: Cane Review of Systems Review of Systems: Unobtainable due to cognitive status Patient has severe dementia, cannot contribute much in the way of history, complains of feeling thirsty and left arm pain at the site of the IV while potassium is running. Physical Exam Physical Exam: General: Awake alert, very frail, appears very dry, no acute distress Head: Normocephalic, atraumatic ENT: PERRL, EOMI, no pharyngeal exudate, mucous membranes very dry Chest: Diminished breath sounds throughout, clear to auscultation, no adventitious breath sounds Cardiac: Regular rate and rhythm, no murmur, no JVD, normal peripheral pulses, good capillary refill Abdominal: NABS x 4 quadrants, soft, nontender to palpation, no rebound, guarding or tenderness Extremities: Normal inspection, no peripheral edema or erythema, calfs nontender to palpation Psych: Normal mood and affect Neuro: AAO x 3, strength intact bilaterally and rated 5/5, no motor deficits, speech is clear, no peripheral sensory deficits Skin: no rash or erythema Results & Data Results & Data ([facility]) Vital Signs (Past 12 Hours) Vital Signs Temp Pulse Resp BP Pulse Ox O2 Del Method 09/11/22 18:00 101 H 22 93 Room Air 09/11/22 18:00 131/93 09/11/22 17:30 22 98 Room Air 09/11/22 17:30 133/89 09/11/22 18:10 Room Air 09/11/22 17:21 37.2 C 101 H 20 133/89 98 Room Air Laboratory Results Abnormal lab results 09/11/22 09/11/22 09/11/22 Range/Units 17:20 17:20 17:20 RDW Std Deviation 56.6 H (36.4-46.3) fL RDW Coeff of Pratik 15.7 H (11.5-14.5) % Neut # (Auto) 9.85 H (1.4-6.5) K/uL Lymph # (Auto) 0.42 L (1.2-3.4) K/uL Immature Gran # (Auto) 0.07 H (0.00-0.02) K/uL Potassium 2.7 L (3.5-5.1) mmol/L Anion Gap 17 H (3-11) BUN 26 H (6-23) mg/dl Creatinine 3.06 H (0.6-1.4) mg/dl BUN/Creatinine Ratio 8.5 L (10-20) Glucose 209 H (70-99(Fasting)) mg/dl Magnesium (1.7-2.4) mg/dl Total Bilirubin 1.2 H (0.2-1.0) mg/dl AST 60 H (13-39) U/L Total Creatine Kinase 1300 H (30-223) U/L Albumin 3.2 L (3.4-5.0) gm/dl Albumin/Globulin Ratio 0.8 L (0.9-2) TSH (0.300-4.500) uIu/ml 09/11/22 09/11/22 Range/Units 17:20 17:20 RDW Std Deviation (36.4-46.3) fL RDW Coeff of Pratik (11.5-14.5) % Neut # (Auto) (1.4-6.5) K/uL Lymph # (Auto) (1.2-3.4) K/uL Immature Gran # (Auto) (0.00-0.02) K/uL Potassium (3.5-5.1) mmol/L Anion Gap (3-11) BUN (6-23) mg/dl Creatinine (0.6-1.4) mg/dl BUN/Creatinine Ratio (10-20) Glucose (70-99(Fasting)) mg/dl Magnesium 2.8 H (1.7-2.4) mg/dl Total Bilirubin (0.2-1.0) mg/dl AST (13-39) U/L Total Creatine Kinase (30-223) U/L Albumin (3.4-5.0) gm/dl Albumin/Globulin Ratio (0.9-2) TSH 7.560 H (0.300-4.500) uIu/ml Diagnostic Findings Abdomen/Pelvis CT 09/11/22 17:41 CT OF THE ABDOMEN AND PELVIS WITHOUT CONTRAST CLINICAL HISTORY: right flank pain, fall COMPARISON STUDY: CT of the abdomen and pelvis April 14, 2017. TECHNIQUE: Axial images of the abdomen and pelvis were obtained without IV contrast. Images were reviewed in the axial, sagittal, and coronal planes. Automated exposure control was utilized for the study. A dose lowering technique was utilized adhering to the principles of ALARA. FINDINGS: Extensive coronary artery calcification is incidentally noted. Borderline dilatation of visualized portions of the ascending aorta is unchanged. No hemoperitoneum or pneumoperitoneum is present. Solid abdominal viscera are suboptimally assessed on this unenhanced exam. However, there is no evidence for traumatic injury to the liver, spleen, adrenal glands, kidneys or p ancreas. Gallbladder distention is noted without pericholecystic stranding. There is no free fluid. There is no evidence for a bowel obstruction. Colonic diverticulosis is noted without evidence for acute diverticulitis. Several bladder diverticula are present. These are shown on prior CT. Right femoral internal fixation is noted. Congenital deformity of T12 is present. No acute fracture is identified within the lumbar spine, pelvis or hips. There are no suspicious osseous lesions. Multilevel degenerative changes within lumbar spine are present. IMPRESSION: 1. No acute traumatic findings within the abdomen or pelvis on unenhanced exam. 2. Mild gallbladder distention. No pericholecystic stranding. An upper quadrant pain, ultrasound is recommended. 3. Ground glass opacities within the lower lungs which may be infectious or atelectatic. Alveolar edema is also within the differential. 4. No bowel obstruction. ACT 112: Negative or not required by law. Electronically signed by: Daljit Conner M.D. 09/11/2022 7:[address] 09/11/22 17:41 CT OF THE CERVICAL SPINE WITHOUT CONTRAST CLINICAL HISTORY: fall COMPARISON STUDY: Cervical spine radiograph June 27, 2016. CT of the neck November 17, 2015. TECHNIQUE: Helical axial images of the cervical spine were obtained without IV contrast. Sagittal and coronal reconstructions were viewed. Automated exposure control was utilized for the study. A dose lowering technique was utilized adhering to the principles of ALARA. FINDINGS: Alignment of the cervical spine is anatomic. Vertebral body heights are maintained. No acute cervical spine fracture or subluxation is present. There is no prevertebral edema. Facet joints are intact. Severe multilevel facet arthrosis is present. There is moderate multilevel degenerative disc disease. Degenerative changes at the C1-C2 articulation are noted. Biapical opacities are unchanged and favor scarring. IMPRESSION: No acute cervical spine fracture or subluxation. ACT 112: Negative or not required by law. Electronically signed by: Daljit Conner M.D. 09/11/2022 6:[address] 09/11/22 17:41 CT OF THE HEAD WITHOUT CONTRAST CLINICAL HISTORY: Fall. COMPARISON STUDY: Head CT November 05, 2015. MRI of the brain November 06, 2015. TECHNIQUE: Helical axial images of the head were obtained without IV contrast. Automated exposure control was utilized for the study. A dose lowering technique was utilized adhering to the principles of ALARA. FINDINGS: No acute intracranial hemorrhage, midline shift or mass effect is present. The ventricular system is unremarkable. The basal cisterns are patent. No extra-axial collections are present. There are no findings to suggest acute dural sinus thrombosis or acute territorial infarct. White matter hypodensity suggests small vessel disease. 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 Basal ganglia calcification is incidentally noted. May be old lacunar infarcts within the right cerebellar hemisphere. No acute calvarial fracture is present. IMPRESSION: 1. No acute intracranial findings. 2. No acute calvarial fracture. ACT 112: Negative or not required by law. Electronically signed by: Daljit Conner M.D. 09/11/2022 6:47 PM Chest X-Ray 09/11/22 17:42 XR chest 1V portable CLINICAL HISTORY: Cough. COMPARISON STUDY: Chest radiograph September 29, 2020. FINDINGS: No pneumothorax or pleural effusion is present. No consolidation is identified. Cardiac size is normal. Mediastinal contours are normal. There are are mediastinal surgical clips and median sternotomy wires. IMPRESSION: No acute cardiopulmonary findings. No significant change in appearance of the chest. ACT 112: Negative or not required by law. Electronically signed by: Daljit Conner M.D. 09/11/2022 6:05 PM Code Status & VTE Plan Code Status Conditional Code--yes to airway/intubation, no to CPR, defib/ACLS protocol other than airway management Supervising Physician Co-Signing Physician Notes Attending addendum: I have physically seen this patient, have supervised the CRISTIAN's activities, and agree with the H&P unless as otherwise noted. Assessment and Plan: Rhabdomyolysis/acute renal failure- CK13 100 Creatinine 3.06 Potassium 2.7 Elevated AST and total bilirubin Aggressive rehydration with IV fluids Follow serial BMP and magnesium levels Replace potassium both orally and IV Status post fall- Consult PT/OT Remaining orders and notations as noted PG Care Time/CCT Total # of Minutes Spent Total Time Spent with Patient: Total time spent is greater than 50% in coordination of care (as documented) at patient's floor/unit and/or counseling patient: Coding Level of Care Code 75344 Initial Inpt Care Lvl 3 Diagnoses Rhabdomyolysis M62.82 Acute renal failure N17.9 Acute hypokalemia E87.6 Fall W19.XXXA Dementia F03.90 CAD (coronary artery disease) I25.10 COPD (chronic obstructive pulmonary disease) J44.9 Hypothyroidism E03.9 Type 2 diabetes mellitus E11.9
[2022-09-11 20:47] LABS: Thyroid Stimulating Hormone 7.56 uIu/ml (0.300-4.500)
[2022-09-11 21:18] LABS: T4 Free Thyroxine 1.08 ng/dl (0.61-1.60)
[2022-09-11] MEDS: LACTATED RINGER'S 1,000 ML IV SCH (21:43)
[2022-09-11] MEDS ORDERED: ONDANSETRON INJ 2 MG/ML 2 ML VIAL IV PRN (22:56)
[2022-09-11] MEDS ORDERED: POLYETHYLENE (MIRALAX) 17 GM PACK PO PRN (22:56)
[2022-09-11] MEDS ORDERED: NITROGLYCERIN SL 0.4 MG/TAB TAB SL PRN (22:56)
[2022-09-11] MEDS ORDERED: ALBUTEROL 0.083% NEBU SOLN 3 ML VIAL INH PRN (22:56)
[2022-09-11] MEDS ORDERED: ALUMINUM/MAGNESIUM SUSP 30 ML UDC PO PRN (22:56)
[2022-09-11] MEDS: HEPARIN SOD 5,000 UNIT/0.5 ML VIAL SQ SCH (23:54)
[2022-09-12] MEDS ORDERED: PNEUMOCOCCAL POLYSACCHARIDES 25 MCG/0.5 ML VIAL/SYR IM ONE (00:58)
[2022-09-12] MEDS: LEVOTHYROXINE SODIUM 100 MCG TABLET PO SCH (05:58)
[2022-09-12] MEDS: LACTATED RINGER'S 1,000 ML IV SCH ×3 (06:15→20:11)
[2022-09-12 06:46] LABS: Appearance Urine Cloudy (Clear); Bacteria Urine Automated Negative (Negative); Bilirubin Urine Negative (Negative); Blood Urine 3+ (Negative); Color Urine Dark Yellow; Epithelial Cell Urine Auto >30 /lpf (0-5); Glucose Urine UA Negative (Negative); Ketones Urine Negative (Negative); Leukocyte Esterase Urine Negative (Negative); Nitrite Urine Negative (Negative); Protein Urine 2+ (Negative); Specific Gravity Urine 1.017 (1.000-1.030); Urobilinogen Urine Negative (Negative)
[2022-09-12 06:55] LABS: Cast Urine Automated >30 /lpf (0-5); Granular Casts Urine 20-30 /lpf (0)
--- NOTE | 2022-09-12 07:43 | Hospitalist Progress Note ---
Date of Service September 12, 2022 Assessment & Plan (1) Rhabdomyolysis: Plan: - Fall within last 24 hours. Unknown down time, with CK 1300, Cr up to 3.06, low K 2.7, AST and t bili increased. - Aggressive IVF -CK 1300-->1207 -Creat 3.06->2.97 Hx. Heart Failure -prior echo EF 40% -repeat echo Swallow dysfunction -suspicion aspiration risk, made NPO -Speech consult and swallow study high risk aspiration IDDSI 4 pureed aspiration precautions, oral hygiene alternating solids and liquids, do not feed with dry mouth consider palliative care as patients oral intake not able to meet nutritional needs (2) Acute renal failure: Plan: - Creatinine elevated at 3.06, likely due to severe dehydration, poor appetite at home, rhabdo - Creatinine checked in our system was from 2 years ago, 1.29 at that time. - Hydrate as above, recheck creat 2.96, concern ATN - Avoid nephrotoxins, renally dose medications as able. (3) Acute hypokalemia: Plan: - 2.7, suspect due to poor appetite given frail presentation and documented 20+ lb weight loss, dementia and issues taking meds at home/preparing meals. - Replete with IV K riders given with fluids. Repleting with 2 K riders overnight given severe KANDY. - Patient very dry, likely unable to swallow PO KCl. (4) Fall: Plan: - Fall w/in last 24 hours, unknown how it occurred, CT imaging negative for trauma. - Suspect in setting of severe dementia, weakness, dehydration. - Hydrating as above for rhabdo, replete electrolytes potassium. - PT/OT ordered, seen (5) Dementia: Plan: - Continue mirtazapine. -patient had been living alone, concern not able to take medications regularly - Speech consulted given concern for aspiration. (6) CAD (coronary artery disease): Plan: - History of CABG and stents. - Continue aspirin, Plavix, Imdur, nadolol, statin. - Nitro as needed chest pain. (7) COPD (chronic obstructive pulmonary disease): Plan: - Continue home inhalers. - on room air tolerating well (8) Hypothyroidism: Plan: - Continue levothyroxine. - TSH last checked as outpatient in December, was 3210. TSH checked on admission, 7.5 with free T4 1.08 (9) Type 2 diabetes mellitus: Plan: - Documented history of, no med. A1c in Feb 5.9%, elevated glucose in ED 209. Plan -Admit to PCU. - SCDs + Heparin for VTE ppx. - Conditional Code: NO CPR/defib/ACLS protocol, yes to invasive airway/intubation Admission and Anticipated Discharge Date Admission Date: September 11, 2022 Supervising Physician Co-Signing Physician Notes I also saw the patient confirmed ponce portions of the history and physical examination. I agree with the impression plan as noted the resident documentation. The patient is seen late this afternoon. Son is at bedside. The patient is sleeping but awakens to voice. He is alert to his name; he confuses his son's name with his brother's name but otherwise responds properly to simple questions. Son describes a gradual decline over the last month or two, most notable since the patient's crotch breaker back in July. EXAM 137/84, 66, 16, 36.7, 95% room air Awake. Oriented to self and place. Appears cachectic. Heart regular rate Respirations nonlabored Abdomen soft and nontender Extremities without edema DATA WBC 13.33, hemoglobin 13.9, platelet 126 Sodium 139, potassium 3.2, BUN 32, creatinine 2.97 Chest x-ray dated 09/11/2022 was unremarkable for acute process Ultrasound right upper quadrant showed distended gallbladder, no gallstones or gallbladder wall thickening. Urine cultures pending IMPRESSION & PLAN Rhabdomyolysis Acute renal failure Dementia Hypothyroidism, elevated TSH although normal free T4 Continue gentle IV fluids and monitor renal function Replete electrolytes as indicated PT/OT evaluation Additional per resident documentation Subjective Patient seen at bedside, laying in bed with dry mouth. Denies any pain or shortness of breath, responds at most in 1 word answers soft voice, will nod or shake head. Per history patient had insisted on home health and denied SNF, patient agreed he was found on the floor at home. Per nursing he failed swallow study, speech was consulted. Review of Systems Review of Systems: see hpi Physical Exam Constitutional: + frail appearing, cooperative and comfortable Eyes: PERRL, conjunctivae normal, anicteric sclerae ENMT: Mouth: + dry oral mucous membranes Neck: trachea midline, no thyromegaly Respiratory: normal respiratory effort, lungs clear to auscultation Cardiovascular: Rate/Rhythm: regular rate and regular rhythm Extremities: no edema Gastrointestinal (Abdomen): Inspection/Auscultation: abdomen normal to inspection Percussion/Palpation: abdomen soft; abdomen nontender Skin: no rashes, warm and dry Results & Data Results & Data ([facility]) Vital Signs (Past 12 Hours) Vital Signs Temp Pulse Pulse Resp BP Pulse Ox Pulse Ox 09/12/22 04:06 37.1 C 88 19 133/79 97 09/12/22 01:05 97 H 09/11/22 23:00 09/11/22 22:56 97 09/11/22 22:56 36.7 C 99 H 20 157/101 H 97 09/11/22 23:17 95 09/11/22 20:09 88 22 168/111 H 95 O2 Del Method O2 Del Method O2 Flow Rate 09/12/22 04:06 Room Air 09/12/22 01:05 09/11/22 23:00 Room Air 09/11/22 22:56 Room Air 09/11/22 22:56 Room Air 09/11/22 23:17 Nasal Cannula 2 09/11/22 20:09 Nasal Cannula 3 Diagnostic Findings Laboratory Results WBC 13.33 K/ul (4.8-10.8) H 09/12/22 07:54 RBC 4.01 M/uL (4.63-6.08) L 09/12/22 07:54 Hgb 13.9 g/dl (14.0-18.0) L 09/12/22 07:54 Hct 38.9 % (40.1-51.0) L 09/12/22 07:54 MCV 97.0 fL (80.0-100.0) 09/12/22 07:54 MCH 34.7 pg (25.0-34.0) H 09/12/22 07:54 MCHC 35.7 g/dL (32.0-36.0) 09/12/22 07:54 RDW Std Deviation 55.5 fL (36.4-46.3) H 09/12/22 07:54 RDW Coeff of Pratik 15.6 % (11.5-14.5) H 09/12/22 07:54 Plt Count 126 K/uL (130-400) L 09/12/22 07:54 MPV 12.6 fL (9.4-12.4) H 09/12/22 07:54 Immature Gran % (Auto) 0.3 % 09/12/22 07:54 Neut % (Auto) 90.2 % 09/12/22 07:54 Lymph % (Auto) 6.7 % 09/12/22 07:54 [place] % (Auto) 2.6 % 09/12/22 07:54 Eos % (Auto) 0.0 % 09/12/22 07:54 Baso % (Auto) 0.2 % 09/12/22 07:54 Neut # (Auto) 12.02 K/uL (1.4-6.5) H 09/12/22 07:54 Lymph # (Auto) 0.89 K/uL (1.2-3.4) L 09/12/22 07:54 [place] # (Auto) 0.35 K/uL (0.24-0.82) 09/12/22 07:54 Eos # (Auto) 0.00 K/uL (0-0.50) 09/12/22 07:54 Baso # (Auto) 0.03 K/uL (0-0.2) 09/12/22 07:54 Immature Gran # (Auto) 0.04 K/uL (0.00-0.02) H 09/12/22 07:54 Polychromasia 1+ 09/12/22 07:54 Echinocytes 1+ 09/12/22 07:54 Sodium 139 mmol/L (136-145) 09/12/22 14:47 Potassium 3.2 mmol/L (3.5-5.1) L 09/12/22 14:47 Chloride 101 mmol/L (98-107) 09/12/22 14:47 Carbon Dioxide 28 mmol/L (21-32) 09/12/22 14:47 Anion Gap 10 (3-11) 09/12/22 14:47 BUN 32 mg/dl (6-23) H 09/12/22 14:47 Creatinine 2.97 mg/dl (0.6-1.4) H 09/12/22 14:47 Est Cr Clr Drug Dosing 12.0 ml/min 09/12/22 14:47 Est GFR ( Amer) 21.4 ml/min 09/12/22 14:47 Est GFR (Non-Af Amer) 18.5 ml/min 09/12/22 14:47 BUN/Creatinine Ratio 10.8 (10-20) 09/12/22 14:47 Glucose 88 mg/dl (70-99(Fasting)) 09/12/22 14:47 Calcium 7.8 mg/dl (8.5-10.1) L 09/12/22 14:47 Magnesium 2.4 mg/dl (1.7-2.4) 09/12/22 07:54 Total Bilirubin 1.1 mg/dl (0.2-1.0) H 09/12/22 07:54 AST 68 U/L (13-39) H 09/12/22 07:54 ALT 16 U/L (7-52) 09/12/22 07:54 Alkaline Phosphatase 75 U/L (34-104) 09/12/22 07:54 Total Creatine Kinase 1207 U/L (30-223) H 09/12/22 07:54 Total Protein 5.7 gm/dl (6.0-8.3) L D 09/12/22 07:54 Albumin 2.6 gm/dl (3.4-5.0) L 09/12/22 07:54 Globulin 3.1 gm/dl (2.5-4.0) 09/12/22 07:54 Albumin/Globulin Ratio 0.8 (0.9-2) L 09/12/22 07:54 Lipase 13 U/L (11-82) 09/11/22 17:20 TSH 7.560 uIu/ml (0.300-4.500) H 09/11/22 17:20 Free T4 1.08 ng/dl (0.61-1.60) 09/11/22 17:20 Urine Color Dark Yellow 09/12/22 Unknown Urine Appearance Cloudy (Clear) A 09/12/22 Unknown Urine pH 5.0 (4.5-7.5) 09/12/22 Unknown Ur Specific [place] 1.017 (1.000-1.030) 09/12/22 Unknown Urine Protein 2+ (Negative) H 09/12/22 Unknown Urine Glucose (UA) Negative (Negative) 09/12/22 Unknown Urine Ketones Negative (Negative) 09/12/22 Unknown Urine Blood 3+ (Negative) H 09/12/22 Unknown Urine Nitrite Negative (Negative) 09/12/22 Unknown Urine Bilirubin Negative (Negative) 09/12/22 Unknown Urine Urobilinogen Negative (Negative) 09/12/22 Unknown Ur Leukocyte Esterase Negative (Negative) 09/12/22 Unknown Urine WBC (Auto) 1-5 /hpf (0-5) 09/12/22 Unknown Urine RBC (Auto) 5-10 /hpf (0-4) H 09/12/22 Unknown U Hyaline Cast (Auto) >30 /lpf (0-5) H 09/12/22 Unknown U Epithel Cells (Auto) >30 /lpf (0-5) H 09/12/22 Unknown Urine Bacteria (Auto) Negative (Negative) 09/12/22 Unknown Ur Renal Epithelial Cell Not Reportable 09/12/22 Unknown Granular Casts 20-30 /lpf (0) H 09/12/22 Unknown Urine Yeast Not Reportable 09/12/22 15:00 SARS-CoV-2, RNA, NAAT NEGATIVE (NEGATIVE) 09/11/22 19:35 Impressions Abdomen/Pelvis CT 09/11/22 17:41 CT OF THE ABDOMEN AND PELVIS WITHOUT CONTRAST CLINICAL HISTORY: right flank pain, fall COMPARISON STUDY: CT of the abdomen and pelvis April 14, 2017. TECHNIQUE: Axial images of the abdomen and pelvis were obtained without IV contrast. Images were reviewed in the axial, sagittal, and coronal planes. Automated exposure control was utilized for the study. A dose lowering technique was utilized adhering to the principles of ALARA. FINDINGS: Extensive coronary artery calcification is incidentally noted. Borderline dilatation of visualized portions of the ascending aorta is unchanged. No hemoperitoneum or pneumoperitoneum is present. Solid abdominal viscera are suboptimally assessed on this unenhanced exam. However, there is no evidence for traumatic injury to the liver, spleen, adrenal glands, kidneys or pancreas. Gallbladder distention is noted without pericholecystic stranding. There is no free fluid. There is no evidence for a bowel obstruction. Colonic diverticulosis is noted without evidence for acute diverticulitis. Several bladder diverticula are present. These are shown on prior CT. Right femoral internal fixation is noted. Congenital deformity of T12 is present. No acute fracture is identified within the lumbar spine, pelvis or hips. There are no suspicious osseous lesions. Multilevel degenerative changes within lumbar spine are present. IMPRESSION: 1. No acute traumatic findings within the abdomen or pelvis on unenhanced exam. 2. Mild gallbladder distention. No pericholecystic stranding. An upper quadrant pain, ultrasound is recommended. 3. Ground glass opacities within the lower lungs which may be infectious or atelectatic. Alveolar edema is also within the differential. 4. No bowel obstruction. ACT 112: Negative or not required by law. Electronically signed by: Daljit Conner M.D. 09/11/2022 7:[address] 09/11/22 17:41 CT OF THE CERVICAL SPINE WITHOUT CONTRAST CLINICAL HISTORY: fall COMPARISON STUDY: Cervical spine radiograph June 27, 2016. CT of the neck November 17, 2015. TECHNIQUE: Helical axial images of the cervical spine were obtained without IV contrast. Sagittal and coronal reconstructions were viewed. Automated exposure control was utilized for the study. A dose lowering technique was utilized adhering to the principles of ALARA. FINDINGS: Alignment of the cervical spine is anatomic. Vertebral body heights are maintained. No acute cervical spine fracture or subluxation is present. There is no prevertebral edema. Facet joints are intact. Severe multilevel facet arthrosis is present. There is moderate multilevel degenerative disc disease. Degenerative changes at the C1-C2 articulation are noted. Biapical opacities are unchanged and favor scarring. IMPRESSION: No acute cervical spine fracture or subluxation. ACT 112: Negative or not required by law. Electronically signed by: Daljit Conner M.D. 09/11/2022 6:[address] 09/11/22 17:41 CT OF THE HEAD WITHOUT CONTRAST CLINICAL HISTORY: Fall. COMPARISON STUDY: Head CT November 05, 2015. MRI of the brain November 06, 2015. TECHNIQUE: Helical axial images of the head were obtained without IV contrast. Automated exposure control was utilized for the study. A dose lowering technique was utilized adhering to the principles of ALARA. FINDINGS: No acute intracranial hemorrhage, midline shift or mass effect is present. The ventricular system is unremarkable. The basal cisterns are patent. No extra-axial collections are present. There are no findings to suggest acute dural sinus thrombosis or acute territorial infarct. White matter hypodensity suggests small vessel disease. 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 Basal ganglia calcification is incidentally noted. May be old lacunar infarcts within the right cerebellar hemisphere. No acute calvarial fracture is present. IMPRESSION: 1. No acute intracranial findings. 2. No acute calvarial fracture. ACT 112: Negative or not required by law. Electronically signed by: Daljit Conner M.D. 09/11/2022 6:47 PM Chest X-Ray 09/11/22 17:42 XR chest 1V portable CLINICAL HISTORY: Cough. COMPARISON STUDY: Chest radiograph September 29, 2020. FINDINGS: No pneumothorax or pleural effusion is present. No consolidation is identified. Cardiac size is normal. Mediastinal contours are normal. There are are mediastinal surgical clips and median sternotomy wires. IMPRESSION: No acute cardiopulmonary findings. No significant change in appearance of the chest. ACT 112: Negative or not required by law. Electronically signed by: Daljit Conner M.D. 09/11/2022 6:05 PM Gallbladder Ultrasound 09/11/22 19:21 ABDOMINAL ULTRASOUND, RIGHT UPPER QUADRANT HISTORY: Abnormal LFTs.. COMPARISON: Abdomen and pelvis CT 09/11/2022. FINDINGS: Pancreas: Obscured by overlying bowel gas. Liver: Unremarkable. Gallbladder: Distended. No gallstones. No gallbladder wall thickening. Negative sonographic Posada sign. CBD: 5 mm. Right kidney: No hydronephrosis. IMPRESSION: 1. Distended gallbladder. No gallbladder wall thickening or gallstones identified. 2. Normal caliber common bile duct. ACT 112: Negative or not required by law. Electronically signed by: Ulises Whitaker M.D. 09/12/2022 8:50 AM Videofluoroscopic Swallow 09/12/22 13:30 FL video swallow CLINICAL HISTORY: 86 years-old Male with r/o aspiration. Chronic dysphagia TECHNIQUE: Video fluoroscopic evaluation of swallowing was performed in the AP and lateral projections by the speech pathology staff. The patient is fed thin liquid, mildly thick and pudding consistencies. FLUOROSCOPY TIME: 2.7 minutes. COMPARISON STUDY: Swallow study 04/24/2019 FINDINGS: There is normal hyoid excursion and epiglottic deflection. No significant penetration or aspiration identified. Decreased oral pharyngeal transit with vallecular and piriform sinus retention. IMPRESSION: 1. No aspiration identified. 2. Please see the speech pathologist report for detailed findings and recommendations. ACT 112: Negative or not required by law. Electronically signed by: Arthur López M.D. 09/12/2022 2:10 PM Medications Administered Current Inpatient Medications Al Hydrox/Mg Hydrox/Simethicone (Aluminum/Magnesium Susp 30 Ml Udc) 15 ml PO Q4H PRN PRN Reason: Dyspepsia Stop: 10/11/22 22:55 Albuterol (Albuterol 0.083% Nebu Soln 3 Ml Vial) 2.5 mg NEB Q6R PRN; Protocol PRN Reason: Shortness Of Breath Stop: 10/12/22 09:40 Aspirin (Aspirin 81 Mg Ectab) 81 mg PO DAILY EVERARDO Stop: 10/12/22 08:59 Last Admin: 09/12/22 09:16 Dose: Not Given Clopidogrel Bisulfate (Clopidogrel Bisulfate 75 Mg Tab) 75 mg PO DAILY EVERARDO Stop: 10/12/22 08:59 Last Admin: 09/12/22 09:16 Dose: Not Given Fluticasone Furoate (Fluticasone Furoate 100mcg 14 Puffs/Inhaler) 1 puffs INH DAILY EVERARDO Stop: 10/12/22 08:59 Last Admin: 09/12/22 09:25 Dose: 1 puffs Heparin Sodium (Porcine) (Heparin Sod 5,000 Unit/0.5 Ml Vial) 5,000 units SQ Q12 EVERARDO Stop: 10/11/22 22:55 Last Admin: 09/12/22 09:24 Dose: 5,000 units Lactated Ringer's (Lr) 1,000 mls @ 125 mls/hr IV .Q8H EVERARDO Stop: 10/11/22 20:59 Last Admin: 09/12/22 14:32 Dose: 125 mls/hr Pantoprazole Sodium 40 mg/ (Syringe) 10 mls @ 5 mls/min IV DAILY@[facility] Stop: 10/12/22 10:59 Last Admin: 09/12/22 11:05 Dose: 5 mls/min Isosorbide Mononitrate (Isosorbide [place] Extended Rel 60 Mg Tabcr) 240 mg PO DAILY EVERARDO Stop: 10/12/22 08:59 Last Admin: 09/12/22 09:16 Dose: Not Given Levothyroxine Sodium (Levothyroxine Sodium 100 Mcg Tablet) 100 mcg PO [facility] Stop: 10/12/22 06:29 Last Admin: 09/12/22 05:58 Dose: Not Given Metoprolol Tartrate (Metoprolol Tartrate 1 Mg/Ml Vial) 5 mg IV Q6 PRN PRN Reason: Hypertension Stop: 10/12/22 11:59 Mirtazapine (Mirtazapine Tab 15 Mg Tab) 7.5 mg PO DAILY EVERARDO Stop: 10/12/22 08:59 Last Admin: 09/12/22 09:16 Dose: Not Given Nitroglycerin (Nitroglycerin Sl 0.4 Mg/Tab Tab) 0.4 mg SL Q5M PRN PRN Reason: chest pain Stop: 10/11/22 22:55 Ondansetron HCl (Ondansetron Inj 2 Mg/Ml 2 Ml Vial) 4 mg IV Q6H PRN PRN Reason: Nausea Stop: 10/11/22 22:55 Polyethylene Glycol (Polyethylene (Miralax) 17 Gm Pack) 17 gm PO DAILY PRN PRN Reason: Constipation Stop: 10/11/22 22:55 Rosuvastatin Calcium (Rosuvastatin Calcium 20 Mg Tab) 40 mg PO DAILY EVERARDO Stop: 10/12/22 08:59 Last Admin: 09/12/22 09:16 Dose: Not Given Resident Activity Tracking Resident Involvement: Resident Care Provided Care Provided: Adult [facility]
[2022-09-12 08:41] LABS: Hematocrit (blood only) 38.9 % (40.1-51.0); Hemoglobin 13.9 g/dl (14.0-18.0); Mean Corpuscular Hemoglobin 34.7 pg (25.0-34.0); Mean Corpuscular Hgb Conc 35.7 g/dL (32.0-36.0); Mean Platelet Volume 12.6 fL (9.4-12.4); Platelet Count 126 K/uL (130-400); RDW Coefficient of Variation 15.6 % (11.5-14.5); RDW Standard Deviation 55.5 fL (36.4-46.3); Red Blood Count 4.01 M/uL (4.63-6.08); White Blood Count 13.33 K/ul (4.8-10.8)
--- NOTE | 2022-09-12 08:51 | Ultrasound Report ---
ABDOMINAL ULTRASOUND, RIGHT UPPER QUADRANT HISTORY: Abnormal LFTs.. COMPARISON: Abdomen and pelvis CT 09/11/2022. FINDINGS: Pancreas: Obscured by overlying bowel gas. Liver: Unremarkable. Gallbladder: Distended. No gallstones. No gallbladder wall thickening. Negative sonographic Posada si gn. CBD: 5 mm. Right kidney: No hydronephrosis. IMPRESSION: 1. Distended gallbladder. No gallbladder wall thickening or gallstones identified. 2. Normal caliber common bile duct. ACT 112: Negative or not required by law. Electronically signed by: Ulises Whitaker M.D. 09/12/2022 8:50 AM
[2022-09-12] MEDS ORDERED: METOPROLOL TARTRATE 1 MG/ML VIAL IV PRN (08:52)
[2022-09-12 08:53] LABS: Albumin Globulin Ratio 0.8 (0.9-2); Albumin Level 2.6 gm/dl (3.4-5.0); Bilirubin,Total 1.1 mg/dl (0.2-1.0); Creatinine Clr Calc Pharmacy 11.9 ml/min; Est GFR (Non-African American) 18.2 ml/min; Globulin 3.1 gm/dl (2.5-4.0); Magnesium 2.4 mg/dl (1.7-2.4); Total Protein 5.7 gm/dl (6.0-8.3)
[2022-09-12] MEDS ORDERED: PANTOprazole 40 MG TAB PO SCH (09:00)
[2022-09-12] MEDS ORDERED: nadoloL 40 MG TAB PO SCH (09:00)
[2022-09-12] MEDS: ISOSORBIDE MONO EXTENDED REL 60 MG TABCR PO SCH (09:16)
[2022-09-12] MEDS: MIRTAZAPINE TAB 15 MG TAB PO SCH (09:16)
[2022-09-12] MEDS: ASPIRIN 81 MG ECTAB PO SCH (09:16)
[2022-09-12] MEDS: CLOPIDOGREL BISULFATE 75 MG TAB PO SCH (09:16)
[2022-09-12] MEDS: ROSUVASTATIN CALCIUM 20 MG TAB PO SCH (09:16)
[2022-09-12] MEDS: POTASSIUM CHLORIDE / WTR 10 MEQ/100 ML PLCT IV SCH ×3 (09:24→11:16)
[2022-09-12] MEDS: HEPARIN SOD 5,000 UNIT/0.5 ML VIAL SQ SCH ×2 (09:24→20:10)
[2022-09-12] MEDS: FLUTICASONE FUROATE 100MCG 14 PUFFS/INHALER INH SCH (09:25)
[2022-09-12] MEDS ORDERED: ALBUTEROL 0.083% NEBU SOLN 3 ML VIAL NEB PRN (09:41)
[2022-09-12 09:50] LABS: Basophils # (auto) 0.03 K/uL (0-0.2); Basophils % (auto) 0.2 %; Echinocytes 1+; Immature Granulocytes # (auto) 0.04 K/uL (0.00-0.02); Immature Granulocytes % (auto) 0.3 %; Lymphocytes # (auto) 0.89 K/uL (1.2-3.4); Lymphocytes % (auto) 6.7 %; Monocytes # (auto) 0.35 K/uL (0.24-0.82); Monocytes % (auto) 2.6 %; Neutrophils # (auto) 12.02 K/uL (1.4-6.5); Neutrophils % (auto) 90.2 %; Polychromasia 1+
--- NOTE | 2022-09-12 10:50 | Electrocardiogram Report ---
Test Reason : Blood Pressure : / mmHG Vent. 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 rate has increased BY [address] more depressed Anterior leads Nonspecific T wave abnormality no longer evident in Inferior leads Confirmed by Alessandro Espinosa ([id number]) on 09/12/2022 10:49:50 AM Referred By: REFERRED SELF Confirmed By:Vernon Espinosa
--- NOTE | 2022-09-12 10:51 | Electrocardiogram Report ---
Test Reason : Blood Pressure : / mmHG Vent. 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
--- NOTE | 2022-09-12 10:54 | Electrocardiogram Report ---
Test Reason : Blood Pressure : / mmHG Vent. 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
[2022-09-12] MEDS ORDERED: PANTOprazole 40 MG in SYRINGE 0 ML IV SCH (11:00)
[2022-09-12] MEDS: PANTOprazole 40 MG in SYRINGE 0 ML IV SCH (11:05)
--- NOTE | 2022-09-12 14:11 | Fluoroscopy Report ---
FL video swallow CLINICAL HISTORY: 86 years-old Male with r/o aspiration. Chronic dysphagia TECHNIQUE: Video fluoroscopic evaluation of swallowing was performed in the AP and lateral projection s by the speech pathology staff. The patient is fed thin liquid, mildly thick and pudding consistenci es. FLUOROSCOPY TIME: 2.7 minutes. COMPARISON STUDY: Swallow study 04/24/2019 FINDINGS: There is normal hyoid excursion and epiglottic deflection. No significant penetration or as piration identified. Decreased oral pharyngeal transit with vallecular and piriform sinus retention. IMPRESSION: 1. No aspiration identified. 2. Please see the speech pathologist report for detailed findings and recommendations. ACT 112: Negative or not required by law. Electronically signed by: Arthur López M.D. 09/12/2022 2:10 PM
[2022-09-12 15:24] LABS: Appearance Urine Cloudy (Clear); Bacteria Urine Automated Negative (Negative); Bilirubin Urine Negative (Negative); Blood Urine 3+ (Negative); Color Urine Yellow; Epithelial Cell Urine Auto >30 /lpf (0-5); Glucose Urine UA Negative (Negative); Ketones Urine Negative (Negative); Leukocyte Esterase Urine 1+ (Negative); Nitrite Urine Negative (Negative); Protein Urine 2+ (Negative); RBC Urine Automated >30 /hpf (0-4); Specific Gravity Urine 1.012 (1.000-1.030); Urobilinogen Urine Negative (Negative); WBC Urine Automated >30 /hpf (0-5)
[2022-09-12 15:37] LABS: BUN Creatinine Ratio 10.8 (10-20); Calcium 7.8 mg/dl (8.5-10.1); Est GFR (African American) 21.4 ml/min; Est GFR (Non-African American) 18.5 ml/min; Potassium 3.2 mmol/L (3.5-5.1)
[2022-09-13] MEDS: LACTATED RINGER'S 1,000 ML IV SCH ×3 (03:56→19:20)
[2022-09-13] MEDS: LEVOTHYROXINE SODIUM 100 MCG TABLET PO SCH (06:08)
[2022-09-13 06:28] LABS: Mean Corpuscular Hemoglobin 33.8 pg (25.0-34.0); Mean Corpuscular Hgb Conc 35.1 g/dL (32.0-36.0); Mean Corpuscular Volume 96.1 fL (80.0-100.0); Mean Platelet Volume 12.2 fL (9.4-12.4); Platelet Count 137 K/uL (130-400); RDW Coefficient of Variation 15.9 % (11.5-14.5); RDW Standard Deviation 55.6 fL (36.4-46.3); Red Blood Count 3.85 M/uL (4.63-6.08); White Blood Count 9.79 K/ul (4.8-10.8)
[2022-09-13 06:57] LABS: Albumin Globulin Ratio 0.8 (0.9-2); Albumin Level 2.3 gm/dl (3.4-5.0); BUN Creatinine Ratio 11.7 (10-20); Bilirubin,Total 1.2 mg/dl (0.2-1.0); Calcium 7.7 mg/dl (8.5-10.1); Creatinine Clr Calc Pharmacy 11.7 ml/min; Est GFR (African American) 20.5 ml/min; Est GFR (Non-African American) 17.7 ml/min; Globulin 2.9 gm/dl (2.5-4.0); Potassium 3.5 mmol/L (3.5-5.1); Total Protein 5.2 gm/dl (6.0-8.3)
[2022-09-13 07:01] LABS: Basophils # (auto) 0.03 K/uL (0-0.2); Basophils % (auto) 0.3 %; Immature Granulocytes # (auto) 0.03 K/uL (0.00-0.02); Immature Granulocytes % (auto) 0.3 %; Lymphocytes # (auto) 0.56 K/uL (1.2-3.4); Lymphocytes % (auto) 5.7 %; Monocytes # (auto) 0.22 K/uL (0.24-0.82); Monocytes % (auto) 2.2 %; Neutrophils # (auto) 8.95 K/uL (1.4-6.5); Neutrophils % (auto) 91.5 %
--- NOTE | 2022-09-13 07:09 | Hospitalist Progress Note ---
Date of Service September 13, 2022 Assessment & Plan (1) Rhabdomyolysis: Plan: - Fall within last 24 hours. Unknown down time, with CK 1300, Cr up to 3.06, low K 2.7, AST and t bili increased. - Aggressive IVF -CK 1300-->749 -Creat 3.06->2.97 Hx. Heart Failure -prior echo EF 40% -repeat echo LV function low normal -will continue aggresive hydration and monitor respiratory status Swallow dysfunction -suspicion aspiration risk, made NPO -Speech consult and swallow study high risk aspiration IDDSI 4 pureed aspiration precautions, oral hygiene alternating solids and liquids, do not feed with dry mouth consider palliative care as patients oral intake not able to meet nutritional needs (2) Acute renal failure: Plan: - Creatinine elevated at 3.06, likely due to severe dehydration, poor appetite at home, rhabdo - Creatinine checked in our system was from 2 years ago, 1.29 at that time. - Hydrate as above, recheck creat 3.07, concern ATN/new CKD - Avoid nephrotoxins, renally dose medications as able. (3) Acute hypokalemia: Plan: - 2.7, suspect due to poor appetite given frail presentation and documented 20+ lb weight loss, dementia and issues taking meds at home/preparing meals. - Replete with IV K riders given with fluids. Repleting with 2 K riders overnight given severe KANDY. - Patient very dry, likely unable to swallow PO KCl. (4) Fall: Plan: - Fall w/in last 24 hours, unknown how it occurred, CT imaging negative for trauma. - Suspect in setting of severe dementia, weakness, dehydration. - Hydrating as above for rhabdo, replete electrolytes potassium. - PT/OT ordered, able to walk a few steps, recommend inpt rehab (5) Dementia: Plan: - Continue mirtazapine. -patient had been living alone, concern not able to take medications regularly - Speech consulted given concern for aspiration. (6) CAD (coronary artery disease): Plan: - History of CABG and stents. - Continue aspirin, Plavix, Imdur, nadolol, statin. - Nitro as needed chest pain. (7) COPD (chronic obstructive pulmonary disease): Plan: - Continue home inhalers. - on room air tolerating well (8) Hypothyroidism: Plan: - Continue levothyroxine. - TSH last checked as outpatient in December, was 3210. TSH checked on admission, 7.5 with free T4 1.08 (9) Type 2 diabetes mellitus: Plan: - Documented history of, no med. A1c in b 5.9%, elevated glucose in ED 209. Plan -Admit to PCU. - SCDs + Heparin for VTE ppx. - Conditional Code: NO CPR/defib/ACLS protocol, yes to invasive airway/intubation Admission and Anticipated Discharge Date Admission Date: September 11, 2022 Supervising Physician Co-Signing Physician Notes I also saw the patient confirmed ponce portions of the history and physical examination. I agree with the impression plan as noted the resident documentation. Patient is awake and oriented to name and place. Denies pain. EXAM 97/55, 103, 18, 36.6, 94% room air Awake. Oriented to self and place. Mucous membranes are dry Appears cachectic. Heart regular rate Respirations nonlabored Abdomen soft and nontender Extremities without edema DATA WBC 9.79, hemoglobin 13, platelet 137 Sodium 143, potassium 3.5, BUN 36, creatinine 3.07 Chest x-ray dated 09/11/2022 was unremarkable for acute process Ultrasound right upper quadrant showed distended gallbladder, no gallstones or gallbladder wall thickening. Urine culture still pending IMPRESSION & PLAN Rhabdomyolysis Acute renal failure Dementia Hypothyroidism, elevated TSH although normal free T4 He still looks hypovolemic upon exam Continue IV fluids Check echocardiogram Replete electrolytes as indicated PT/OT evaluation Additional per resident documentation Subjective Patient seen at bedside, comfortable. Per nursing there is a constant wet cough, he is still high aspiration risk but passed video swallow study. Patient denies any pain SOB at this time. Review of Systems Review of Systems: see hpi Physical Exam Constitutional: + frail appearing, cooperative and comfortable Eyes: PERRL, conjunctivae normal, anicteric sclerae ENMT: Mouth: + dry oral mucous membranes Neck: trachea midline, no thyromegaly Respiratory: normal respiratory effort, lungs clear to auscultation Cardiovascular: Rate/Rhythm: regular rate and regular rhythm Extremities: no edema Gastrointestinal (Abdomen): Inspection/Auscultation: abdomen normal to inspection Percussion/Palpation: abdomen soft; abdomen nontender Skin: no rashes, warm and dry Results & Data Results & Data ([facility]) Vital Signs (Past 12 Hours) Vital Signs Temp Pulse Pulse Resp BP Pulse Ox Pulse Ox 09/13/22 04:00 37.1 C 105 H 18 125/74 09/13/22 00:00 97 H 09/13/22 03:00 93 09/13/22 00:00 37 C 104 H 16 135/75 93 09/12/22 19:30 09/12/22 20:06 95 H 20 09/12/22 20:15 37.0 C 95 H 18 136/67 93 O2 Del Method O2 Del Method 09/13/22 04:00 09/13/22 00:00 09/13/22 03:00 Room Air 09/13/22 00:00 Room Air 09/12/22 19:30 Room Air 09/12/22 20:06 Room Air 09/12/22 20:15 Room Air Laboratory Results 09/13/22 09/13/22 Range/Units 05:55 05:55 WBC 9.79 (4.8-10.8) K/ul RBC 3.85 L (4.63-6.08) M/uL Hgb 13.0 L (14.0-18.0) g/dl Hct 37.0 L (40.1-51.0) % MCV 96.1 (80.0-100.0) fL MCH 33.8 (25.0-34.0) pg MCHC 35.1 (32.0-36.0) g/dL RDW Std Deviation 55.6 H (36.4-46.3) fL RDW Coeff of Pratik 15.9 H (11.5-14.5) % Plt Count 137 (130-400) K/uL MPV 12.2 (9.4-12.4) fL Immature Gran % (Auto) 0.3 % Neut % (Auto) 91.5 % Lymph % (Auto) 5.7 % [place] % (Auto) 2.2 % Eos % (Auto) 0.0 % Baso % (Auto) 0.3 % Neut # (Auto) 8.95 H (1.4-6.5) K/uL Lymph # (Auto) 0.56 L (1.2-3.4) K/uL [place] # (Auto) 0.22 L (0.24-0.82) K/uL Eos # (Auto) 0.00 (0-0.50) K/uL Baso # (Auto) 0.03 (0-0.2) K/uL Immature Gran # (Auto) 0.03 H (0.00-0.02) K/uL Sodium 143 (136-145) mmol/L Potassium 3.5 (3.5-5.1) mmol/L Chloride 107 (98-107) mmol/L Carbon Dioxide 29 (21-32) mmol/L Anion Gap 7 (3-11) BUN 36 H (6-23) mg/dl Creatinine 3.07 H (0.6-1.4) mg/dl Est Cr Clr Drug Dosing 11.7 ml/min Est GFR ( Amer) 20.5 ml/min Est GFR (Non-Af Amer) 17.7 ml/min BUN/Creatinine Ratio 11.7 (10-20) Glucose 77 (70-99(Fasting)) mg/dl Calcium 7.7 L (8.5-10.1) mg/dl Total Bilirubin 1.2 H (0.2-1.0) mg/dl AST 70 H (13-39) U/L ALT 20 (7-52) U/L Alkaline Phosphatase 77 (34-104) U/L Total Creatine Kinase 749 H (30-223) U/L Total Protein 5.2 L (6.0-8.3) gm/dl Albumin 2.3 L (3.4-5.0) gm/dl Globulin 2.9 (2.5-4.0) gm/dl Albumin/Globulin Ratio 0.8 L (0.9-2) Resident Activity Tracking Resident Involvement: Resident Care Provided Care Provided: Adult [facility]
[2022-09-13] MEDS: HEPARIN SOD 5,000 UNIT/0.5 ML VIAL SQ SCH ×3 (09:00→20:34)
[2022-09-13] MEDS: CLOPIDOGREL BISULFATE 75 MG TAB PO SCH (09:21)
[2022-09-13] MEDS: ISOSORBIDE MONO EXTENDED REL 60 MG TABCR PO SCH (09:21)
[2022-09-13] MEDS: MIRTAZAPINE TAB 15 MG TAB PO SCH (09:21)
[2022-09-13] MEDS: ASPIRIN 81 MG ECTAB PO SCH (09:21)
[2022-09-13] MEDS: ROSUVASTATIN CALCIUM 20 MG TAB PO SCH (09:21)
[2022-09-13] MEDS: FLUTICASONE FUROATE 100MCG 14 PUFFS/INHALER INH SCH (09:21)
--- NOTE | 2022-09-13 10:36 | XCELERA ---
[id number]
[2022-09-13] MEDS: PANTOprazole 40 MG in SYRINGE 0 ML IV SCH (11:25)
[2022-09-14] MEDS: LACTATED RINGER'S 1,000 ML IV SCH ×3 (03:10→19:15)
[2022-09-14] MEDS: LEVOTHYROXINE SODIUM 100 MCG TABLET PO SCH (06:10)
--- NOTE | 2022-09-14 07:09 | Hospitalist Progress Note ---
Date of Service September 14, 2022 Assessment & Plan (1) Rhabdomyolysis: Plan: Rhabdomyolysis - Fall within last 24 hours. Unknown down time, with CK 1300, Cr up to 3.06, low K 2.7, AST and t bili increased. - Aggressive IVF -CK 1300-->749 -Creat 3.06->2.68 Hx. Heart Failure -prior echo EF 40% -repeat echo LV function low normal -will continue aggressive hydration and monitor respiratory status Swallow dysfunction -suspicion aspiration risk, made NPO -Speech consult and swallow study high risk aspiration IDDSI 4 pureed aspiration precautions, oral hygiene alternating solids and liquids, do not feed with dry mouth consider palliative care as patients oral intake not able to meet nutritional needs -ordered nectar thick liquids given concern aspiration (2) Acute renal failure: Plan: - Creatinine elevated at 3.06, likely due to severe dehydration, poor appetite at home, rhabdo - Creatinine checked in our system was from 2 years ago, 1.29 at that time. - Hydrate as above, concern ATN/new CKD - Avoid nephrotoxins, renally dose medications as able. (3) Acute hypokalemia: Plan: - 2.7, suspect due to poor appetite given frail presentation and documented 20+ lb weight loss, dementia and issues taking meds at home/preparing meals. - Replete with IV K riders given with fluids. - Patient very dry, likely unable to swallow PO KCl. (4) Fall: Plan: - Fall w/in last 24 hours, unknown how it occurred, CT imaging negative for trauma. - Suspect in setting of severe dementia, weakness, dehydration. - Hydrating as above for rhabdo, replete electrolytes potassium. - PT/OT ordered, able to walk a few steps, recommend inpt rehab (5) Dementia: Plan: - Continue mirtazapine. -patient had been living alone, concern not able to take medications regularly - Speech consulted given concern for aspiration. (6) CAD (coronary artery disease): Plan: - History of CABG and stents. - Continue aspirin, Plavix, Imdur, nadolol, statin. - Nitro as needed chest pain. (7) COPD (chronic obstructive pulmonary disease): Plan: - Continue home inhalers. - on room air tolerating well (8) Hypothyroidism: Plan: - Continue levothyroxine. - TSH last checked as outpatient in December, was 3210. TSH checked on admission, 7.5 with free T4 1.08 (9) Type 2 diabetes mellitus: Plan: - Documented history of, no med. A1c in Feb 5.9%, elevated glucose in ED 209. Plan -Admit to PCU. - SCDs + Heparin for VTE ppx. - DNR/DNI Admission and Anticipated Discharge Date Admission Date: September 11, 2022 Supervising Physician Co-Signing Physician Notes I also saw the patient confirmed ponce portions of the history and physical examination. I agree with the impression plan as noted the resident documentation. EXAM 111/64, 90, 15, 36.8, 91% room air Awake. Oriented to self and place. Mucous membranes are dry Appears cachectic. Heart regular but mildly tachycardic. Respirations nonlabored Abdomen soft and nontender Extremities without edema DATA Hemoglobin 11.0, platelet count 112. Sodium 144, potassium 2.7, BUN 32, creatinine 2.68 Chest x-ray dated 09/11/2022 was unremarkable for acute process Ultrasound right upper quadrant showed distended gallbladder, no gallstones or gallbladder wall thickening. Urine culture shows no growth IMPRESSION & PLAN Rhabdomyolysis Acute renal failure Dementia Hypokalemia Hypothyroidism, elevated TSH although normal free T4 He still looks hypovolemic upon exam, although need to keep a close eye on his fluid rate, I's/O's Continue IV fluids Replete potassium and monitor Case management for placement Additional per resident documentation Subjective Patient seen at bedside sleeping soundly. Per nursing he has requested the use of external catheter again, when given thin liquids he tends to drink too much too quickly and aspirates, does better when spoon fed soups. Patient had wet the bed 4 times yesterday, no signs of fluid overload or third spacing, doing well on room air. Review of Systems Review of Systems: Unobtainable due to cognitive status Physical Exam Constitutional: + frail appearing, cooperative and comfortable Eyes: PERRL, conjunctivae normal, anicteric sclerae ENMT: Mouth: + dry oral mucous membranes Neck: trachea midline, no thyromegaly Respiratory: normal respiratory effort, lungs clear to auscultation Cardiovascular: Rate/Rhythm: regular rate and regular rhythm Extremities: no edema Gastrointestinal (Abdomen): Inspection/Auscultation: abdomen normal to inspection Percussion/Palpation: abdomen soft; abdomen nontender Skin: no rashes, warm and dry Results & Data Results & Data ([facility]) Vital Signs (Past 12 Hours) Vital Signs Temp Pulse Pulse Resp BP BP Pulse Ox 09/14/22 03:00 09/14/22 02:14 36.5 C 118 H 18 96/51 L 91 09/14/22 00:47 87 09/13/22 23:09 36.7 C 114 H 20 112/66 92 09/13/22 20:00 09/13/22 20:01 36.8 C 86 18 117/72 93 Pulse Ox O2 Del Method O2 Del Method 09/14/22 03:00 91 Room Air 09/14/22 02:14 Room Air 09/14/22 00:47 09/13/22 23:09 Room Air 09/13/22 20:00 Room Air 09/13/22 20:01 Room Air Laboratory Results 09/14/22 09/14/22 Range/Units 11:06 11:06 WBC 7.55 (4.8-10.8) K/ul RBC 3.21 L (4.63-6.08) M/uL Hgb 11.0 L (14.0-18.0) g/dl Hct 31.1 L (40.1-51.0) % MCV 96.9 (80.0-100.0) fL MCH 34.3 H (25.0-34.0) pg MCHC 35.4 (32.0-36.0) g/dL RDW Std Deviation 56.0 H (36.4-46.3) fL RDW Coeff of Pratik 15.8 H (11.5-14.5) % Plt Count 112 L (130-400) K/uL MPV 11.8 (9.4-12.4) fL Sodium 144 (136-145) mmol/L Potassium 2.7 L D (3.5-5.1) mmol/L Chloride 110 H (98-107) mmol/L Carbon Dioxide 28 (21-32) mmol/L Anion Gap 6 (3-11) BUN 32 H (6-23) mg/dl Creatinine 2.68 H D (0.6-1.4) mg/dl Est Cr Clr Drug Dosing 14.2 ml/min Est GFR ( Amer) 24.2 ml/min Est GFR (Non-Af Amer) 20.9 ml/min BUN/Creatinine Ratio 11.9 (10-20) Glucose 97 (70-99(Fasting)) mg/dl Calcium 7.4 L (8.5-10.1) mg/dl Medications Administered Current Inpatient Medications Al Hydrox/Mg Hydrox/Simethicone (Aluminum/Magnesium Susp 30 Ml Udc) 15 ml PO Q4H PRN PRN Reason: Dyspepsia Stop: 10/11/22 22:55 Albuterol (Albuterol 0.083% Nebu Soln 3 Ml Vial) 2.5 mg NEB Q6R PRN; Protocol PRN Reason: Shortness Of Breath Stop: 10/12/22 09:40 Last Admin: 09/12/22 20:06 Dose: 2.5 mg Aspirin (Aspirin 81 Mg Ectab) 81 mg PO DAILY [facility] Stop: 10/12/22 08:59 Last Admin: 09/14/22 08:03 Dose: 81 mg Clopidogrel Bisulfate (Clopidogrel Bisulfate 75 Mg Tab) 75 mg PO DAILY [facility] Stop: 10/12/22 08:59 Last Admin: 09/14/22 08:02 Dose: 75 mg Fluticasone Furoate (Fluticasone Furoate 100mcg 14 Puffs/Inhaler) 1 puffs INH DAILY [facility] Stop: 10/12/22 08:59 Last Admin: 09/14/22 08:02 Dose: 1 puffs Heparin Sodium (Porcine) (Heparin Sod 5,000 Unit/0.5 Ml Vial) 5,000 units SQ Q12 [facility] Stop: 10/11/22 22:55 Last Admin: 09/14/22 08:03 Dose: 5,000 units Lactated Ringer's (Lr) 1,000 mls @ 125 mls/hr IV .Q8H [facility] Stop: 10/11/22 20:59 Last Admin: 09/14/22 10:59 Dose: 125 mls/hr Pantoprazole Sodium 40 mg/ (Syringe) 10 mls @ 5 mls/min IV DAILY@1100 [facility] Stop: 10/12/22 10:59 Last Admin: 09/14/22 10:59 Dose: 5 mls/min Potassium Chloride (K Fantasma / Wtr) 10 meq in 100 mls @ 100 mls/hr IV Q1H [facility] Stop: 09/14/22 17:59 Last Admin: 09/14/22 15:48 Dose: 100 mls/hr Isosorbide Mononitrate (Isosorbide [place] Extended Rel 60 Mg Tabcr) 240 mg PO DAILY [facility] Stop: 10/12/22 08:59 Last Admin: 09/14/22 08:02 Dose: 240 mg Levothyroxine Sodium (Levothyroxine Sodium 100 Mcg Tablet) 100 mcg PO DAILYBB [facility] Stop: 10/12/22 06:29 Last Admin: 09/14/22 06:10 Dose: 100 mcg Metoprolol Tartrate (Metoprolol Tartrate 1 Mg/Ml Vial) 5 mg IV Q6 PRN PRN Reason: Hypertension Stop: 10/12/22 11:59 Mirtazapine (Mirtazapine Tab 15 Mg Tab) 7.5 mg PO DAILY [facility] Stop: 10/12/22 08:59 Last Admin: 09/14/22 08:01 Dose: 7.5 mg Nitroglycerin (Nitroglycerin Sl 0.4 Mg/Tab Tab) 0.4 mg SL Q5M PRN PRN Reason: chest pain Stop: 10/11/22 22:55 Ondansetron HCl (Ondansetron Inj 2 Mg/Ml 2 Ml Vial) 4 mg IV Q6H PRN PRN Reason: Nausea Stop: 10/11/22 22:55 Polyethylene Glycol (Polyethylene (Miralax) 17 Gm Pack) 17 gm PO DAILY PRN PRN Reason: Constipation Stop: 10/11/22 22:55 Rosuvastatin Calcium (Rosuvastatin Calcium 20 Mg Tab) 40 mg PO DAILY [facility] Stop: 10/12/22 08:59 Last Admin: 09/14/22 08:02 Dose: 40 mg Resident Activity Tracking Resident Involvement: Resident Care Provided Care Provided: Adult Hospital Medicine
[2022-09-14] MEDS: MIRTAZAPINE TAB 15 MG TAB PO SCH (08:01)
[2022-09-14] MEDS: FLUTICASONE FUROATE 100MCG 14 PUFFS/INHALER INH SCH (08:02)
[2022-09-14] MEDS: ISOSORBIDE MONO EXTENDED REL 60 MG TABCR PO SCH (08:02)
[2022-09-14] MEDS: CLOPIDOGREL BISULFATE 75 MG TAB PO SCH (08:02)
[2022-09-14] MEDS: ROSUVASTATIN CALCIUM 20 MG TAB PO SCH (08:02)
[2022-09-14] MEDS: ASPIRIN 81 MG ECTAB PO SCH (08:03)
[2022-09-14] MEDS: HEPARIN SOD 5,000 UNIT/0.5 ML VIAL SQ SCH ×2 (08:03→20:00)
[2022-09-14] MEDS: PANTOprazole 40 MG in SYRINGE 0 ML IV SCH (10:59)
[2022-09-14 11:25] LABS: Hematocrit (blood only) 31.1 % (40.1-51.0); Mean Corpuscular Hemoglobin 34.3 pg (25.0-34.0); Mean Corpuscular Hgb Conc 35.4 g/dL (32.0-36.0); Mean Corpuscular Volume 96.9 fL (80.0-100.0); Mean Platelet Volume 11.8 fL (9.4-12.4); Platelet Count 112 K/uL (130-400); RDW Coefficient of Variation 15.8 % (11.5-14.5); Red Blood Count 3.21 M/uL (4.63-6.08); White Blood Count 7.55 K/ul (4.8-10.8)
[2022-09-14 11:46] LABS: BUN Creatinine Ratio 11.9 (10-20); Calcium 7.4 mg/dl (8.5-10.1); Creatinine Clr Calc Pharmacy 14.2 ml/min; Est GFR (African American) 24.2 ml/min; Est GFR (Non-African American) 20.9 ml/min; Potassium 2.7 mmol/L (3.5-5.1)
[2022-09-14] MEDS: POTASSIUM CHLORIDE / WTR 10 MEQ/100 ML PLCT IV SCH ×6 (12:29→18:12)
[2022-09-15] MEDS: LACTATED RINGER'S 1,000 ML IV SCH ×2 (06:32→15:59)
[2022-09-15] MEDS: LEVOTHYROXINE SODIUM 100 MCG TABLET PO SCH (06:33)
--- NOTE | 2022-09-15 07:04 | Hospitalist Progress Note ---
Date of Service September 15, 2022 Assessment & Plan (1) Rhabdomyolysis: Plan: Rhabdomyolysis - Fall within last 24 hours. Unknown down time, with CK 1300, Cr up to 3.06, low K 2.7, AST and t bili increased. - Aggressive IVF -CK 1300-->749 -Creat 3.06->2.44 Hx. Heart Failure -prior echo EF 40% -repeat echo LV function low normal -will continue aggressive hydration and monitor respiratory status LR adjusted from 125ml/hr to 80ml/h Swallow dysfunction -suspicion aspiration risk, made NPO -Speech consult and swallow study high risk aspiration IDDSI 4 pureed aspiration precautions, oral hygiene alternating solids and liquids, do not feed with dry mouth consider palliative care as patients oral intake not able to meet nutritional needs -ordered nectar thick liquids given concern aspiration (2) Acute renal failure: Plan: - Creatinine elevated at 3.06, likely due to severe dehydration, poor appetite at home, rhabdo - Creatinine checked in our system was from 2 years ago, 1.29 at that time. - Hydrate as above, concern ATN/new CKD - Avoid nephrotoxins, renally dose medications as able. (3) Acute hypokalemia: Plan: - 2.7, suspect due to poor appetite given frail presentation and documented 20+ lb weight loss, dementia and issues taking meds at home/preparing meals. - Replete with IV K riders given with fluids. - Patient very dry, likely unable to swallow PO KCl. (4) Fall: Plan: - Fall w/in last 24 hours, unknown how it occurred, CT imaging negative for trauma. - Suspect in setting of severe dementia, weakness, dehydration. - Hydrating as above for rhabdo, replete electrolytes potassium. - PT/OT ordered, able to walk a few steps, recommend inpt rehab - Family and patient agreed to SNF PT (5) Dementia: Plan: - Continue mirtazapine. -patient had been living alone, concern not able to take medications regularly - Speech consulted given concern for aspiration. (6) CAD (coronary artery disease): Plan: - History of CABG and stents. - Continue aspirin, Plavix, Imdur, nadolol, statin. - Nitro as needed chest pain. (7) COPD (chronic obstructive pulmonary disease): Plan: - Continue home inhalers. - on room air tolerating well (8) Hypothyroidism: Plan: - Continue levothyroxine. - TSH last checked as outpatient in December, was 3210. TSH checked on admission, 7.5 with free T4 1.08 (9) Type 2 diabetes mellitus: Plan: - Documented history of, no med. A1c in Feb 5.9%, elevated glucose in ED 209. Plan -Admit to PCU. - SCDs + Heparin for VTE ppx. - DNR/DNI Admission and Anticipated Discharge Date Admission Date: September 11, 2022 Supervising Physician Co-Signing Physician Notes I also saw the patient confirmed ponce portions of the history and physical examination. I agree with the impression plan as noted the resident documentation. Upon my exam, the patient was sleeping but awakens to voice. He has no complaints other than being tired. EXAM 132/83, 75, 17, 37.1, 97% on room air Awake. Oriented to self and place. Appears cachectic. Heart regular. Respirations nonlabored Abdomen soft and nontender Extremities without edema DATA Sodium 144, potassium 3.5, BUN 31, creatinine 2.44 Chest x-ray dated 09/11/2022 was unremarkable for acute process Ultrasound right upper quadrant showed distended gallbladder, no gallstones or gallbladder wall thickening. Urine culture collected 09/12/2022 shows no growth IMPRESSION & PLAN Rhabdomyolysis, resolved Acute renal failure, improving Dementia, progressing Hypokalemia, resolved Hypothyroidism, elevated TSH although normal free T4 He still looks mildly hypovolemic upon exam, although need to keep a close eye on his fluid rate, I's/O's Continue IV fluids Potassium normal this morning with repletion, continue to monitor Case management for placement Additional per resident documentation Subjective Patient seen at bedside, awake, able to answer questions in short sentences. He denies any pain discomfort SOB. Per nursing he was slightly more agitated this morning, still had difficulty drinking nectar thick liquids but tolerates pudding better, external plaza was removed to be changed. Review of Systems Review of Systems: see hpi Physical Exam Constitutional: + frail appearing, cooperative and comfortable Eyes: PERRL, conjunctivae normal, anicteric sclerae ENMT: Mouth: + dry oral mucous membranes Neck: trachea midline, no thyromegaly Respiratory: normal respiratory effort, lungs clear to auscultation Cardiovascular: Rate/Rhythm: regular rate and regular rhythm Extremities: no edema Gastrointestinal (Abdomen): Inspection/Auscultation: abdomen normal to inspection Percussion/Palpation: abdomen soft; abdomen nontender Skin: no rashes, warm and dry Results & Data Results & Data ([facility]) Vital Signs (Past 12 Hours) Vital Signs Temp Pulse Resp BP BP Pulse Ox O2 Del Method 09/14/22 23:19 37.4 C 103 H 17 130/78 92 Room Air 09/14/22 20:00 Room Air 09/14/22 19:35 37.0 C 92 H 16 130/66 93 Room Air Laboratory Results 09/15/22 Range/Units 11:21 Sodium 144 (136-145) mmol/L Potassium 3.5 D (3.5-5.1) mmol/L Chloride 110 H (98-107) mmol/L Carbon Dioxide 27 (21-32) mmol/L Anion Gap 7 (3-11) BUN 31 H (6-23) mg/dl Creatinine 2.44 H (0.6-1.4) mg/dl Est Cr Clr Drug Dosing 15.7 ml/min Est GFR ( Amer) 27.1 ml/min Est GFR (Non-Af Amer) 23.4 ml/min BUN/Creatinine Ratio 12.7 (10-20) Glucose 98 (70-99(Fasting)) mg/dl Calcium 7.8 L (8.5-10.1) mg/dl Magnesium 2.0 (1.7-2.4) mg/dl Medications Administered Current Inpatient Medications Al Hydrox/Mg Hydrox/Simethicone (Aluminum/Magnesium Susp 30 Ml Udc) 15 ml PO Q4H PRN PRN Reason: Dyspepsia Stop: 10/11/22 22:55 Albuterol (Albuterol 0.083% Nebu Soln 3 Ml Vial) 2.5 mg NEB Q6R PRN; Protocol PRN Reason: Shortness Of Breath Stop: 10/12/22 09:40 Last Admin: 09/12/22 20:06 Dose: 2.5 mg Aspirin (Aspirin 81 Mg Ectab) 81 mg PO DAILY [facility] Stop: 10/12/22 08:59 Last Admin: 09/15/22 09:12 Dose: 81 mg Clopidogrel Bisulfate (Clopidogrel Bisulfate 75 Mg Tab) 75 mg PO DAILY [facility] Stop: 10/12/22 08:59 Last Admin: 09/15/22 09:11 Dose: 75 mg Fluticasone Furoate (Fluticasone Furoate 100mcg 14 Puffs/Inhaler) 1 puffs INH DAILY [facility] Stop: 10/12/22 08:59 Last Admin: 09/15/22 09:11 Dose: 1 puffs Heparin Sodium (Porcine) (Heparin Sod 5,000 Unit/0.5 Ml Vial) 5,000 units SQ Q12 [facility] Stop: 10/11/22 22:55 Last Admin: 09/15/22 09:12 Dose: 5,000 units Lactated Ringer's (Lr) 1,000 mls @ 125 mls/hr IV .Q8H [facility] Stop: 10/11/22 20:59 Last Admin: 09/15/22 06:32 Dose: 125 mls/hr Pantoprazole Sodium 40 mg/ (Syringe) 10 mls @ 5 mls/min IV DAILY@1100 [facility] Stop: 10/12/22 10:59 Last Admin: 09/15/22 13:11 Dose: 5 mls/min Isosorbide Mononitrate (Isosorbide [place] Extended Rel 60 Mg Tabcr) 240 mg PO DAILY [facility] Stop: 10/12/22 08:59 Last Admin: 09/15/22 09:12 Dose: 240 mg Levothyroxine Sodium (Levothyroxine Sodium 100 Mcg Tablet) 100 mcg PO DAILYBB [facility] Stop: 10/12/22 06:29 Last Admin: 09/15/22 06:33 Dose: 100 mcg Metoprolol Tartrate (Metoprolol Tartrate 1 Mg/Ml Vial) 5 mg IV Q6 PRN PRN Reason: Hypertension Stop: 10/12/22 11:59 Mirtazapine (Mirtazapine Tab 15 Mg Tab) 7.5 mg PO DAILY [facility] Stop: 10/12/22 08:59 Last Admin: 09/15/22 09:11 Dose: 7.5 mg Nitroglycerin (Nitroglycerin Sl 0.4 Mg/Tab Tab) 0.4 mg SL Q5M PRN PRN Reason: chest pain Stop: 10/11/22 22:55 Ondansetron HCl (Ondansetron Inj 2 Mg/Ml 2 Ml Vial) 4 mg IV Q6H PRN PRN Reason: Nausea Stop: 10/11/22 22:55 Polyethylene Glycol (Polyethylene (Miralax) 17 Gm Pack) 17 gm PO DAILY PRN PRN Reason: Constipation Stop: 10/11/22 22:55 Rosuvastatin Calcium (Rosuvastatin Calcium 20 Mg Tab) 40 mg PO DAILY [facility] Stop: 10/12/22 08:59 Last Admin: 09/15/22 09:12 Dose: 40 mg Resident Activity Tracking Resident Involvement: Resident Care Provided Care Provided: Adult Hospital Medicine
[2022-09-15] MEDS: CLOPIDOGREL BISULFATE 75 MG TAB PO SCH (09:11)
[2022-09-15] MEDS: FLUTICASONE FUROATE 100MCG 14 PUFFS/INHALER INH SCH (09:11)
[2022-09-15] MEDS: MIRTAZAPINE TAB 15 MG TAB PO SCH (09:11)
[2022-09-15] MEDS: ASPIRIN 81 MG ECTAB PO SCH (09:12)
[2022-09-15] MEDS: HEPARIN SOD 5,000 UNIT/0.5 ML VIAL SQ SCH ×2 (09:12→21:33)
[2022-09-15] MEDS: ISOSORBIDE MONO EXTENDED REL 60 MG TABCR PO SCH (09:12)
[2022-09-15] MEDS: ROSUVASTATIN CALCIUM 20 MG TAB PO SCH (09:12)
--- NOTE | 2022-09-15 12:12 | Electrocardiogram Report ---
Test Reason : Blood Pressure : / mmHG Vent. Rate : 098 BPM Atrial Rate : 326 BPM P-R Int : 000 ms QRS Dur : 080 ms QT Int : 410 ms P-R-T Axes : 000 -58 089 degrees QTc Int : 523 ms Poor data quality, interpretation may be adversely affected Atrial fibrillation Left axis deviation Low voltage QRS Inferior infarct (cited on or before 24-JAN-2008) Abnormal ECG When compared with ECG of 11-SEP-2022 23:42, Atrial fibrillation has replaced Sinus rhythm Questionable change in QRS duration Confirmed by Alessandro Espinosa ([id number]) on 09/15/2022 12:12:05 PM Referred By: REFERRED SELF Confirmed By:Vernon Espinosa
[2022-09-15 12:15] LABS: BUN Creatinine Ratio 12.7 (10-20); Calcium 7.8 mg/dl (8.5-10.1); Creatinine Clr Calc Pharmacy 15.7 ml/min; Est GFR (African American) 27.1 ml/min; Est GFR (Non-African American) 23.4 ml/min; Potassium 3.5 mmol/L (3.5-5.1)
[2022-09-15] MEDS: PANTOprazole 40 MG in SYRINGE 0 ML IV SCH (13:11)
[2022-09-15] MEDS: ACETAMINOPHEN 1,000 MG/100 ML VIAL IV PRN (18:11)
[2022-09-16] MEDS: LACTATED RINGER'S 1,000 ML IV SCH ×2 (05:29→16:55)
[2022-09-16] MEDS: LEVOTHYROXINE SODIUM 100 MCG TABLET PO SCH (05:29)
--- NOTE | 2022-09-16 07:08 | Hospitalist Progress Note ---
Date of Service September 16, 2022 Assessment & Plan (1) Rhabdomyolysis: Plan: Rhabdomyolysis - Fall within last 24 hours. Unknown down time, with CK 1300, Cr up to 3.06, low K 2.7, AST and t bili increased. - Aggressive IVF started -CK 1300-->749 -Creat 3.06->2.44 Hx. Heart Failure -prior echo EF 40% -repeat echo LV function low normal -will continue aggressive hydration and monitor respiratory status LR adjusted from 125ml/hr to 80ml/h Swallow dysfunction -suspicion aspiration risk, made NPO -Speech consult and swallow study high risk aspiration IDDSI 4 pureed aspiration precautions, oral hygiene alternating solids and liquids, do not feed with dry mouth consider palliative care as patients oral intake not able to meet nutritional needs -ordered nectar thick liquids given concern aspiration, swallow precautions in place (2) Acute renal failure: Plan: - Creatinine elevated at 3.06, likely due to severe dehydration, poor appetite at home, rhabdo - Creatinine checked in our system was from 2 years ago, 1.29 at that time. - Hydrate as above, concern ATN/new CKD - Avoid nephrotoxins, renally dose medications as able. (3) Acute hypokalemia: Plan: - 2.7, suspect due to poor appetite given frail presentation and documented 20+ lb weight loss, dementia and issues taking meds at home/preparing meals. - Replete with IV K riders given with fluids. - Patient very dry, likely unable to swallow PO KCl. (4) Fall: Plan: - Fall w/in last 24 hours, unknown how it occurred, CT imaging negative for trauma. - Suspect in setting of severe dementia, weakness, dehydration. - Hydrating as above for rhabdo, replete electrolytes potassium. - PT/OT ordered, able to walk a few steps, recommend inpt rehab - Family and patient agreed to SNF PT (5) Dementia: Plan: - Continue mirtazapine. -patient had been living alone, concern not able to take medications regularly - Speech consulted given concern for aspiration. (6) CAD (coronary artery disease): Plan: - History of CABG and stents. - Continue aspirin, Plavix, Imdur, nadolol, statin. - Nitro as needed chest pain. (7) COPD (chronic obstructive pulmonary disease): Plan: - Continue home inhalers. - on room air tolerating well (8) Hypothyroidism: Plan: - Continue levothyroxine. - TSH last checked as outpatient in December, was 3210. TSH checked on admission, 7.5 with free T4 1.08 (9) Type 2 diabetes mellitus: Plan: - Documented history of, no med. A1c in Feb 5.9%, elevated glucose in ED 209. Plan -Admit to PCU. - SCDs + Heparin for VTE ppx. - DNR/DNI Admission and Anticipated Discharge Date Admission Date: September 11, 2022 Supervising Physician Co-Signing Physician Notes Patient seen and examined independently of PGY-2 Dr. Virgen. Agree with history, exam findings, assessment and plan of care as outlined with the following updates: 86 year old male with hx of CAD, HFrEF, hypothyroid, DM admitted after being found down at home. His son is at the bedside today. 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 Since then, his health has declined significantly. He has lost quite a bit of weight. He no longer goes upstairs in the home since he has a bed and bathroom on the main level of the house. Son notes that there are times when Hal did not remember who he was or that he had come to see him. There have also been times when Hal had some outbursts that were unlike him. He is frustrated by the condom catheter today and does not want to work with PT. VS and nursing notes reviewed. Thin, ill-appearing malewasting at the temples and supraclavicular area. Mucus membranes are dry. Heart with regular rate and rhythm. No edema. Lungs are ronchorous throughout. Abdomen is soft, non-tender. Labs reviewed. 1. Rhabdomyolysis. s/p fall, unknow down time. CK downtrended. 2. KANDY. Multifactorial, but likely mostly pre-renal. IVFs. Cr 2.44, eGFR 23. Unclear if he will be able to maintain his own hydration once IVFs are stopped, but we will plan to re-evaluate this in the morning since his eGFR is still reduced now. 3. Heart failure with reduced ejection fraction, CAD (hx of CABG). Continue ASA, Plavix, Imdur, nadolol, statin. Repeat Echo: EF 45-50%; regional wall motion abnormalities. 4. Dysphagia. Aspiration precautions, nectar thicks, pureed. 5. Hypokalemia. Due to poor oral intake. Repleting as needed. 6. Fall. PT/OT. Plan for SNF at discharge. 7. DM. basal bolus insulin. Dispo: pending clinical improvement, but will need SNF placement. Subjective Patient seen at bedside, calm comfortable cooperative. Denies any pain SOB. No concerns at this time. Per nursing he kept the plaza cath all night, no agitation overnight. Review of Systems Review of Systems: see hpi Physical Exam Constitutional: + frail appearing, cooperative and comfortable Eyes: PERRL, conjunctivae normal, anicteric sclerae ENMT: Mouth: + dry oral mucous membranes Neck: trachea midline, no thyromegaly Respiratory: normal respiratory effort, lungs clear to auscultation Cardiovascular: Rate/Rhythm: regular rate and regular rhythm Extremities: no edema Gastrointestinal (Abdomen): Inspection/Auscultation: abdomen normal to inspection Percussion/Palpation: abdomen soft; abdomen nontender Skin: no rashes, warm and dry Results & Data Results & Data ([facility]) Vital Signs (Past 12 Hours) Vital Signs Temp Pulse Pulse Resp BP Pulse Ox O2 Del Method 09/16/22 03:35 36.4 C L 90 18 110/72 95 Room Air 09/15/22 23:08 36.3 C L 97 H 18 113/78 96 Room Air 09/15/22 22:53 86 09/15/22 19:54 Room Air 09/15/22 19:23 36.4 C L 102 H 18 121/74 95 Laboratory Results 09/16/22 09/15/22 Range/Units 07:05 11:21 Sodium 144 144 (136-145) mmol/L Potassium 3.3 L 3.5 D (3.5-5.1) mmol/L Chloride 111 H 110 H (98-107) mmol/L Carbon Dioxide 27 27 (21-32) mmol/L Anion Gap 6 7 (3-11) BUN 28 H 31 H (6-23) mg/dl Creatinine 2.44 H 2.44 H (0.6-1.4) mg/dl Est Cr Clr Drug Dosing 19.2 15.7 ml/min Est GFR ( Amer) 27.1 27.1 ml/min Est GFR (Non-Af Amer) 23.4 23.4 ml/min BUN/Creatinine Ratio 11.5 12.7 (10-20) Glucose 64 L 98 (70-99(Fasting)) mg/dl Calcium 7.2 L 7.8 L (8.5-10.1) mg/dl Magnesium 2.0 (1.7-2.4) mg/dl Medications Administered Current Inpatient Medications Al Hydrox/Mg Hydrox/Simethicone (Aluminum/Magnesium Susp 30 Ml Udc) 15 ml PO Q4H PRN PRN Reason: Dyspepsia Stop: 10/11/22 22:55 Albuterol (Albuterol 0.083% Nebu Soln 3 Ml Vial) 2.5 mg NEB Q6R PRN; Protocol PRN Reason: Shortness Of Breath Stop: 10/12/22 09:40 Last Admin: 09/12/22 20:06 Dose: 2.5 mg Aspirin (Aspirin 81 Mg Ectab) 81 mg PO DAILY EVERARDO Stop: 10/12/22 08:59 Last Admin: 09/16/22 09:37 Dose: 81 mg Clopidogrel Bisulfate (Clopidogrel Bisulfate 75 Mg Tab) 75 mg PO DAILY EVERARDO Stop: 10/12/22 08:59 Last Admin: 09/16/22 09:37 Dose: 75 mg Fluticasone Furoate (Fluticasone Furoate 100mcg 14 Puffs/Inhaler) 1 puffs INH DAILY EVERARDO Stop: 10/12/22 08:59 Last Admin: 09/16/22 09:37 Dose: 1 puffs Heparin Sodium (Porcine) (Heparin Sod 5,000 Unit/0.5 Ml Vial) 5,000 units SQ Q12 EVERARDO Stop: 10/11/22 22:55 Last Admin: 09/16/22 09:37 Dose: 5,000 units Lactated Ringer's (Lr) 1,000 mls @ 80 mls/hr IV .[id number] EVERARDO Stop: 10/11/22 20:59 Last Admin: 09/16/22 05:29 Dose: 80 mls/hr Pantoprazole Sodium 40 mg/ (Syringe) 10 mls @ 5 mls/min IV DAILY@1100 EVERARDO Stop: 10/12/22 10:59 Last Admin: 09/16/22 09:38 Dose: 5 mls/min Acetaminophen (Ofirmev) 1,000 mg in 100 mls @ 400 mls/hr IV Q8H PRN PRN Reason: pain Stop: 09/18/22 17:53 Last Infusion: 09/15/22 20:25 Dose: Infused Isosorbide Mononitrate (Isosorbide Harrison Extended Rel 60 Mg Tabcr) 240 mg PO DAILY EVERARDO Stop: 10/12/22 08:59 Last Admin: 09/16/22 09:37 Dose: 240 mg Levothyroxine Sodium (Levothyroxine Sodium 100 Mcg Tablet) 100 mcg PO DAILYBB EVERARDO Stop: 10/12/22 06:29 Last Admin: 09/16/22 05:29 Dose: 100 mcg Metoprolol Tartrate (Metoprolol Tartrate 1 Mg/Ml Vial) 5 mg IV Q6 PRN PRN Reason: Hypertension Stop: 10/12/22 11:59 Mirtazapine (Mirtazapine Tab 15 Mg Tab) 7.5 mg PO DAILY EVERARDO Stop: 10/12/22 08:59 Last Admin: 09/16/22 09:37 Dose: 7.5 mg Nitroglycerin (Nitroglycerin Sl 0.4 Mg/Tab Tab) 0.4 mg SL Q5M PRN PRN Reason: chest pain Stop: 10/11/22 22:55 Ondansetron HCl (Ondansetron Inj 2 Mg/Ml 2 Ml Vial) 4 mg IV Q6H PRN PRN Reason: Nausea Stop: 10/11/22 22:55 Polyethylene Glycol (Polyethylene (Miralax) 17 Gm Pack) 17 gm PO DAILY PRN PRN Reason: Constipation Stop: 10/11/22 22:55 Rosuvastatin Calcium (Rosuvastatin Calcium 20 Mg Tab) 40 mg PO DAILY EVERARDO Stop: 10/12/22 08:59 Last Admin: 09/16/22 09:37 Dose: 40 mg Resident Activity Tracking Resident Involvement: Resident Care Provided Care Provided: Adult Hospital Medicine
[2022-09-16 07:57] LABS: BUN Creatinine Ratio 11.5 (10-20); Calcium 7.2 mg/dl (8.5-10.1); Creatinine Clr Calc Pharmacy 19.2 ml/min; Est GFR (African American) 27.1 ml/min; Est GFR (Non-African American) 23.4 ml/min; Potassium 3.3 mmol/L (3.5-5.1)
[2022-09-16] MEDS: HEPARIN SOD 5,000 UNIT/0.5 ML VIAL SQ SCH ×2 (09:37→21:47)
[2022-09-16] MEDS: ASPIRIN 81 MG ECTAB PO SCH (09:37)
[2022-09-16] MEDS: ROSUVASTATIN CALCIUM 20 MG TAB PO SCH (09:37)
[2022-09-16] MEDS: CLOPIDOGREL BISULFATE 75 MG TAB PO SCH (09:37)
[2022-09-16] MEDS: MIRTAZAPINE TAB 15 MG TAB PO SCH (09:37)
[2022-09-16] MEDS: FLUTICASONE FUROATE 100MCG 14 PUFFS/INHALER INH SCH (09:37)
[2022-09-16] MEDS: ISOSORBIDE MONO EXTENDED REL 60 MG TABCR PO SCH (09:37)
[2022-09-16] MEDS: PANTOprazole 40 MG in SYRINGE 0 ML IV SCH (09:38)
[2022-09-16] MEDS ORDERED: POTASSIUM CHLORIDE / WTR 10 MEQ/100 ML PLCT IV ONE (15:16)
[2022-09-17] MEDS: LACTATED RINGER'S 1,000 ML IV SCH ×2 (04:16→18:45)
[2022-09-17] MEDS: LEVOTHYROXINE SODIUM 100 MCG TABLET PO SCH (05:52)
[2022-09-17 06:25] LABS: BUN Creatinine Ratio 10.1 (10-20); Calcium 7.1 mg/dl (8.5-10.1); Creatinine Clr Calc Pharmacy 17.6 ml/min; Est GFR (African American) 26.7 ml/min; Est GFR (Non-African American) 23.1 ml/min; Potassium 3.5 mmol/L (3.5-5.1)
[2022-09-17 06:49] LABS: Hematocrit (blood only) 32.5 % (40.1-51.0); Hemoglobin 11.1 g/dl (14.0-18.0); Mean Corpuscular Hemoglobin 33.9 pg (25.0-34.0); Mean Corpuscular Hgb Conc 34.2 g/dL (32.0-36.0); Mean Corpuscular Volume 99.4 fL (80.0-100.0); Mean Platelet Volume 11.5 fL (9.4-12.4); Platelet Count 117 K/uL (130-400); RDW Coefficient of Variation 16.5 % (11.5-14.5); RDW Standard Deviation 59.2 fL (36.4-46.3); Red Blood Count 3.27 M/uL (4.63-6.08); White Blood Count 5.26 K/ul (4.8-10.8)
[2022-09-17] MEDS: MIRTAZAPINE TAB 15 MG TAB PO SCH (08:33)
[2022-09-17] MEDS: CLOPIDOGREL BISULFATE 75 MG TAB PO SCH (08:33)
[2022-09-17] MEDS: FLUTICASONE FUROATE 100MCG 14 PUFFS/INHALER INH SCH (08:33)
[2022-09-17] MEDS: ROSUVASTATIN CALCIUM 20 MG TAB PO SCH (08:33)
[2022-09-17] MEDS: HEPARIN SOD 5,000 UNIT/0.5 ML VIAL SQ SCH ×2 (08:34→21:06)
[2022-09-17] MEDS: ASPIRIN 81 MG ECTAB PO SCH (08:34)
[2022-09-17] MEDS: ISOSORBIDE MONO EXTENDED REL 60 MG TABCR PO SCH (08:34)
--- NOTE | 2022-09-17 09:46 | Hospitalist Progress Note ---
Date of Service September 17, 2022 Assessment & Plan (1) Rhabdomyolysis: Plan: Rhabdomyolysis - Fall within 24 hours preceding admission. Unknown downtime, with CK 1300, Cr 3.06, K 2.7 - CK downtrending to 749 - Cr improving to 2.47 - Continue IVF LR resuscitation, rate currently at 80 cc/hr -Given history of HFrEF (echocardiogram this admission- EF 40%), monitor fluid status with cautious IVF (2) Acute renal failure: Plan: - Creatinine elevated at 3.06 on admission, likely due to severe dehydration 2/2 poor PO intake, rhabdomyolysis - IVF LR 80 cc/hr - Cr improving to 2.47 today - Avoid nephrotoxins, renally dose medications as able - Unlikely pt can maintain oral hydration, will continue IVF for now and monitor fluid status (3) At risk for aspiration: Plan: - Speech consult and swallow study earlier in admission, recommendations below high risk aspiration IDDSI 4 pureed aspiration precautions, oral hygiene alternating solids and liquids, pureed diet consider palliative care as patients oral intake not able to meet nutritional needs -Pureed diet, aspiration precautions -Will try to contact speech therapy for clarification about diet, possible re- evaluation (4) Acute hypokalemia: Plan: - 2.7 on admission, suspect due to poor appetite given frail presentation and documented 20+ lb weight loss, dementia and issues taking meds at home/preparing meals. -Resolved today at K 3.5 -Trend BMP (5) Fall: Plan: - Fall within 24 hours preceding admission, unknown how it occurred, CT imaging negative for trauma. - Suspect in setting of severe dementia, weakness, dehydration. - Hydrating as above for rhabdomyolysis, repleting electrolytes as needed - PT/OT ongoing- recommend inpatient rehab/SNF - Family and patient agreed to SNF PT, placement pending (6) Dementia: Plan: - Continue mirtazapine - patient had been living alone, concern for not being able to take medications regularly - Pursuing SNF placement (7) CAD (coronary artery disease): Plan: - History of CABG and stents. - Continue aspirin, Plavix, Imdur, nadolol, statin -Imdur 240 mg XL switched to 40 mg TID short-acting to be administered as crushed given aspiration risk - Nitroglycerin PRN chest pain (8) COPD (chronic obstructive pulmonary disease): Plan: - Continue home inhalers/formulary equivalent- fluticasone furoate, albuterol PRN - Saturating well on RA (9) Hypothyroidism: Plan: - Continue levothyroxine. - TSH last checked as outpatient in December, was 3210. TSH checked on admission, 7.5 with free T4 1.08 (10) Type 2 diabetes mellitus: Plan: - Documented history of DM, not on medication. A1c in Feb 5.9%, elevated glucose in ED 209. Plan -Medical/surgical - SCDs + Heparin for VTE ppx. - DNR/DNI Admission and Anticipated Discharge Date Admission Date: September 11, 2022 Supervising Physician Co-Signing Physician Notes Patient seen and examined independently of PGY-2 Dr. Raman. Agree with history, exam findings, assessment and plan of care as outlined with the following updates: 86 year old male with hx of CAD, HFrEF, hypothyroid, DM admitted after being found down at home. Feels well today. No chest pain. Does continue to have wet sounding cough. Not bringin up any mucus. VS and nursing notes reviewed. Thin, ill-appearing malewasting at the temples and supraclavicular area. Mucus membranes are dry. Heart with regular rate and rhythm. No edema. Lungs are ronchorous throughout. Abdomen is soft, non-tender. Labs reviewed. 1. Rhabdomyolysis. s/p fall, unknow down time. CK downtrended. 2. KANDY. Multifactorial, but likely mostly pre-renal. IVFs. Cr 2.47, eGFR 23. Seems to have stabilized. Unclear if he will be able to maintain his own hydration once IVFs are stopped. 3. Heart failure with reduced ejection fraction, CAD (hx of CABG). Continue ASA, Plavix, Imdur, nadolol, statin. Repeat Echo: EF 45-50%; regional wall motion abnormalities. 4. Dysphagia. Aspiration precautions, pureed thinned with liquid. Crushing medications. We were not able to get in touch with speech therapy to clarify the liquid vs nectar thick and whether we still need to crush medications given that he is clinically improving. His previous evaluation was done on day two of admission. Requesting re-evaluation. 5. Hypokalemia. Due to poor oral intake. Repleting as needed. 6. Fall. PT/OT. Plan for SNF at discharge. 7. DM. basal bolus insulin. 8. COPD. Started Breo inhaler BID, albuterol PRN. Dispo: pending clinical improvement, but will need SNF placement. Subjective No acute events overnight. Pt was sleeping comfortably on evaluation. When awoken, he was drowsy but denied any acute complaints aside from minor soreness of R leg. Denies dyspnea, chest pain, fever, N/V. Review of Systems Review of Systems: Per subjective Physical Exam Constitutional: + frail appearing, cooperative and comfortable Eyes: PERRL, conjunctivae normal, anicteric sclerae ENMT: Mouth: + dry oral mucous membranes Neck: trachea midline, no thyromegaly Respiratory: Coarse breath sounds, no overt crackles noted Cardiovascular: Rate/Rhythm: regular rate and regular rhythm Extremities: no edema Gastrointestinal (Abdomen): Inspection/Auscultation: abdomen normal to inspection Percussion/Palpation: abdomen soft; abdomen nontender Skin: no rashes, warm and dry Results & Data Results & Data ([facility]) Vital Signs (Past 12 Hours) Vital Signs Temp Pulse Pulse Resp BP Pulse Ox O2 Del Method 09/17/22 07:44 36.6 C 120 H 20 153/81 H 94 Room Air 09/16/22 22:53 106 H 09/17/22 02:55 36.7 C 100 H 20 130/88 95 09/16/22 22:44 36.7 C 105 H 18 128/82 95 Room Air Resident Activity Tracking Resident Involvement: Resident Care Provided Care Provided: Adult Hospital Medicine
[2022-09-17] MEDS: ACETAMINOPHEN 1,000 MG/100 ML VIAL IV PRN (14:00)
[2022-09-17] MEDS: METOPROLOL TARTRATE 25 MG TAB PO SCH (14:01)
[2022-09-17] MEDS: PANTOprazole 40 MG in SYRINGE 0 ML IV SCH (14:01)
[2022-09-17] MEDS ORDERED: FLUTICASONE/SALMETEROL 250/50 (ADVAIR) 14 PUFF/1 INHALER INH SCH (21:00)
[2022-09-18 05:53] LABS: BUN Creatinine Ratio 9.6 (10-20); Creatinine Clr Calc Pharmacy 17.3 ml/min; Est GFR (African American) 26.3 ml/min; Est GFR (Non-African American) 22.7 ml/min; Potassium 3.6 mmol/L (3.5-5.1)
[2022-09-18] MEDS: LEVOTHYROXINE SODIUM 100 MCG TABLET PO SCH (06:10)
[2022-09-18] MEDS: LACTATED RINGER'S 1,000 ML IV SCH ×2 (06:17→20:01)
[2022-09-18] MEDS ORDERED: ISOSORBIDE DINITRATE 40 MG TAB PO SCH (07:00)
[2022-09-18] MEDS: METOPROLOL TARTRATE 25 MG TAB PO SCH (08:52)
[2022-09-18] MEDS: CLOPIDOGREL BISULFATE 75 MG TAB PO SCH (08:52)
[2022-09-18] MEDS: MIRTAZAPINE TAB 15 MG TAB PO SCH (08:52)
[2022-09-18] MEDS: HEPARIN SOD 5,000 UNIT/0.5 ML VIAL SQ SCH ×2 (08:53→20:01)
[2022-09-18] MEDS: FLUTICASONE/VILANTEROL 200/25MCG 14 PUFFS/INHALER INH SCH (08:53)
[2022-09-18] MEDS: ROSUVASTATIN CALCIUM 20 MG TAB PO SCH (08:53)
--- NOTE | 2022-09-18 09:20 | Hospitalist Progress Note ---
Date of Service September 18, 2022 Assessment & Plan (1) Rhabdomyolysis: Plan: Rhabdomyolysis - Fall within 24 hours preceding admission. Unknown downtime, with CK 1300, Cr 3.06, K 2.7 - CK downtrended to 749 - Cr initially improved, stable at 2.47 to 2.5 today - Continue IVF LR resuscitation, rate currently at 80 cc/hr -Given history of HFrEF (echocardiogram this admission- EF 40%), monitor fluid status with cautious IVF -Case management searching for placement -Can be accepted on 09/19 if medically stable -Pt will require insurance authorization and COVID test prior to d/c on 09/19 (2) Acute renal failure: Plan: - Creatinine elevated at 3.06 on admission, likely due to severe dehydration 2/2 poor PO intake, rhabdomyolysis - IVF LR 80 cc/hr - Cr stable 2.47 to 2.50 today - Avoid nephrotoxins, renally dose medications as able - Unlikely pt can maintain oral hydration, will continue IVF for now and monitor fluid status (3) At risk for aspiration: Plan: - Speech consult and swallow study earlier in admission, recommendations below high risk aspiration IDDSI 4 pureed aspiration precautions, oral hygiene alternating solids and liquids, pureed diet consider palliative care as patients oral intake not able to meet nutritional needs -Pureed diet, aspiration precautions -Speech therapy re-evaluation 09/18 to clarify diet texture questions and whether medications still need to be crushed (4) Cough: Plan: -Previously productive cough with poor expulsion of mucus although coarse on lung exam -Incentive spirometry, flutter valve -Guaifenesin 200 mg q4h (5) Acute hypokalemia: Plan: - 2.7 on admission, suspect due to poor appetite given frail presentation and documented 20+ lb weight loss, dementia and issues taking meds at home/preparing meals. -Resolved on 09/17 at K 3.5 -Trend BMP (6) Fall: Plan: - Fall within 24 hours preceding admission, unknown how it occurred, CT imaging negative for trauma. - Suspect in setting of severe dementia, weakness, dehydration. - Hydrating as above for rhabdomyolysis, repleting electrolytes as needed - PT/OT ongoing- recommend inpatient rehab/SNF - Family and patient agreed to SNF PT, placement pending (7) Dementia: Plan: - Continue mirtazapine - patient had been living alone, concern for not being able to take medications regularly - Pursuing SNF placement (8) CAD (coronary artery disease): Plan: - History of CABG and stents. - Continue aspirin, Plavix, Imdur, nadolol, statin -09/17- Imdur 240 mg XL switched to 40 mg TID short-acting to be administered as crushed given aspiration risk - Nitroglycerin PRN chest pain (9) COPD (chronic obstructive pulmonary disease): Plan: - Continue home inhalers/formulary equivalent- Breo Ellipta, albuterol PRN - Saturating well on RA (10) Hypothyroidism: Plan: - Continue levothyroxine. - TSH last checked as outpatient in December, was 3210. TSH checked on admission, 7.5 with free T4 1.08 (11) Type 2 diabetes mellitus: Plan: - Documented history of DM, not on medication. A1c in Feb 5.9%, elevated glucose in ED 209. Plan -Medical/surgical - SCDs + Heparin for VTE ppx. - DNR/DNI Admission and Anticipated Discharge Date Admission Date: September 11, 2022 Supervising Physician Co-Signing Physician Notes Patient seen and examined independently of PGY-2 Dr. Izaguirre. Agree with history, exam findings, assessment and plan of care as outlined with the following updates: 86 year old male with hx of CAD, HFrEF, hypothyroid, DM admitted after being found down at home. Feels well today. No chest pain. Does continue to have wet sounding cough. Not bringin up any mucus. VS and nursing notes reviewed. Thin, ill-appearing malewasting at the temples and supraclavicular area. Mucus membranes are dry. Heart with regular rate and rhythm. No edema. Lungs are ronchorous throughout. Abdomen is soft, non-tender. Oriented to self, place (knows he is in [place], but not that he is in the hospital). Thinks it is 1927 and that he is at the [facility]. Labs reviewed. 1. Rhabdomyolysis. s/p fall, unknown down time. CK downtrended. 2. KANDY. Multifactorial, but likely mostly pre-renal. IVFs. Cr has stabilized ~ 2.5. Unclear if he will be able to maintain his own hydration once IVFs are stopped. 3. Heart failure with reduced ejection fraction, CAD (hx of CABG). Continue ASA, Plavix, Imdur, nadolol, statin. Repeat Echo: EF 45-50%; regional wall motion abnormalities. 4. Dysphagia. Aspiration precautions, pureed thinned with liquid, thinned liquids. Ok to do pills with a carrier but alternate with sips of water to clear the pharynx. 5. Hypokalemia. Due to poor oral intake. Repleting as needed. 6. Fall. PT/OT. Plan for SNF at discharge. 7. DM. basal bolus insulin. 8. COPD. Started Breo inhaler BID, albuterol PRN. Mucinex. Dispo: Medically stable. Possible discharge to SNF early this upcoming week. Subjective No acute events overnight. However, per nursing report, his mentation was apparently worse compared to night prior. During evaluation, pt appeared tired but not significantly different from day prior. He did not endorse any acute complaints. He is still coughing but not expelling much mucus. Has not experienced dyspnea associated with cough. Review of Systems Review of Systems: Per subjective Physical Exam Constitutional: + frail appearing, cooperative and comfortable ENMT: Mouth: + dry oral mucous membranes Respiratory: Coarse breath sounds, no overt crackles noted Cardiovascular: Rate/Rhythm: regular rate and regular rhythm Extremities: no edema Gastrointestinal (Abdomen): Inspection/Auscultation: abdomen normal to inspection Skin: no rashes, warm and dry Results & Data Results & Data ([facility]) Vital Signs (Past 12 Hours) Vital Signs Temp Pulse Pulse Resp BP Pulse Ox O2 Del Method 09/18/22 07:56 36.7 C 68 19 121/75 93 Room Air 09/18/22 02:43 36.3 C L 101 H 18 132/90 91 Room Air 09/17/22 22:35 99 H 09/17/22 23:01 36.8 C 122 H 18 100/76 94 Room Air Resident Activity Tracking Resident Involvement: Resident Care Provided Care Provided: Adult Hospital Medicine
[2022-09-18] MEDS: PANTOprazole 40 MG in SYRINGE 0 ML IV SCH (13:04)
[2022-09-18] MEDS: ASPIRIN 81 MG CHEW PO SCH (13:04)
[2022-09-18] MEDS: guaiFENesin 200 MG TAB PO SCH ×4 (13:04→20:01)
[2022-09-19] MEDS: guaiFENesin 200 MG TAB PO SCH ×6 (01:13→20:59)
[2022-09-19] MEDS: LACTATED RINGER'S 1,000 ML IV SCH ×2 (03:55→16:43)
[2022-09-19] MEDS: LEVOTHYROXINE SODIUM 100 MCG TABLET PO SCH (04:53)
[2022-09-19 07:05] LABS: BUN Creatinine Ratio 10.4 (10-20); Calcium 7.1 mg/dl (8.5-10.1); Creatinine Clr Calc Pharmacy 19.4 ml/min; Est GFR (African American) 30.4 ml/min; Est GFR (Non-African American) 26.2 ml/min; Potassium 3.4 mmol/L (3.5-5.1)
[2022-09-19] MEDS ORDERED: DEXTROSE 50% 50 ML SYRINGE IV ONE (07:14)
[2022-09-19] MEDS ORDERED: POTASSIUM CHLORIDE CRTAB 20 MEQ TABCR PO ONE (07:58)
[2022-09-19] MEDS: HEPARIN SOD 5,000 UNIT/0.5 ML VIAL SQ SCH ×2 (09:43→20:58)
[2022-09-19] MEDS: ASPIRIN 81 MG CHEW PO SCH (09:44)
[2022-09-19] MEDS: MIRTAZAPINE TAB 15 MG TAB PO SCH (09:44)
[2022-09-19] MEDS: ROSUVASTATIN CALCIUM 20 MG TAB PO SCH (09:44)
[2022-09-19] MEDS: CLOPIDOGREL BISULFATE 75 MG TAB PO SCH (09:44)
[2022-09-19] MEDS: METOPROLOL TARTRATE 25 MG TAB PO SCH (09:44)
[2022-09-19] MEDS: ISOSORBIDE MONO EXTENDED REL 60 MG TABCR PO SCH (09:44)
[2022-09-19] MEDS: FLUTICASONE/VILANTEROL 200/25MCG 14 PUFFS/INHALER INH SCH (09:45)
[2022-09-19] MEDS ORDERED: GLUCAGON FOR INJ 1 MG VIAL SQ PRN (11:02)
[2022-09-19] MEDS ORDERED: DEXTROSE 50% 50 ML SYRINGE IV PRN (11:02)
[2022-09-19] MEDS ORDERED: CARBOHYDRATES FOR HYPOGLYCEMIA PO PRN (11:02)
[2022-09-19] MEDS ORDERED: GLUCOSE 40% GEL 15 GM TUBE PO PRN (11:02)
[2022-09-19] MEDS ORDERED: GLUCOSE 10 TAB/TUBE PO PRN (11:02)
[2022-09-19] MEDS: PANTOprazole 40 MG in SYRINGE 0 ML IV SCH (11:10)
--- NOTE | 2022-09-19 17:10 | Hospitalist Progress Note ---
Date of Service September 19, 2022 Assessment & Plan (1) Rhabdomyolysis: Plan: Rhabdomyolysis - Fall within 24 hours preceding admission. Unknown downtime, with CK 1300, Cr 3.06, K 2.7 - CK downtrended to 749 - Cr initially improved, stable at 2.5 to 2.22 today - Continue IVF LR resuscitation, rate currently at 80 cc/hr -Given history of HFrEF (echocardiogram this admission- EF 40%), monitor fluid status with cautious IVF -Case management searching for placement -Can be accepted on 09/20 if medically stable -Pt will require insurance authorization and COVID test prior to d/c on 09/20 (2) Acute renal failure: Plan: - Creatinine elevated at 3.06 on admission, likely due to severe dehydration 2/2 poor PO intake, rhabdomyolysis - IVF LR 80 cc/hr - Cr stable 2.5 to 2.22, resolved - Avoid nephrotoxins, renally dose medications as able - Unlikely pt can maintain oral hydration, will continue IVF for now and monitor fluid status (3) Moderate protein-calorie malnutrition: Plan: -Daily BMP, phosphorus, magnesium (4) At risk for aspiration: Plan: - Speech consult and swallow study earlier in admission, recommendations below high risk aspiration IDDSI 4 pureed aspiration precautions, oral hygiene alternating solids and liquids, pureed diet consider palliative care as patients oral intake not able to meet nutritional needs -Pureed diet, aspiration precautions -Speech therapy re-evaluation 09/18 to clarify diet texture questions and whether medications still need to be crushed (5) Cough: Plan: -Previously productive cough with poor expulsion of mucus although coarse on lung exam -Incentive spirometry, flutter valve -Guaifenesin 200 mg q4h (6) Acute hypokalemia: Plan: - 2.7 on admission, suspect due to poor appetite given frail presentation and documented 20+ lb weight loss, dementia and issues taking meds at home/preparing meals. -Resolved on 09/17 at K 3.5 -Trend BMP (7) Fall: Plan: - Fall within 24 hours preceding admission, unknown how it occurred, CT imaging negative for trauma. - Suspect in setting of severe dementia, weakness, dehydration. - Hydrating as above for rhabdomyolysis, repleting electrolytes as needed - PT/OT ongoing- recommend inpatient rehab/SNF - Family and patient agreed to SNF PT, placement pending (8) Dementia: Plan: - Continue mirtazapine - patient had been living alone, concern for not being able to take medications regularly - Pursuing SNF placement (9) CAD (coronary artery disease): Plan: - History of CABG and stents. - Continue aspirin, Plavix, Imdur, nadolol, statin -09/17- Imdur 240 mg XL switched to 40 mg TID short-acting to be administered as crushed given aspiration risk - Nitroglycerin PRN chest pain (10) COPD (chronic obstructive pulmonary disease): Plan: - Continue home inhalers/formulary equivalent- Breo Ellipta, albuterol PRN - Saturating well on RA (11) Hypothyroidism: Plan: - Continue levothyroxine. - TSH last checked as outpatient in December, was 3210. TSH checked on admission, 7.5 with free T4 1.08 (12) Type 2 diabetes mellitus: Plan: - Documented history of DM, not on medication. A1c in Feb 5.9%, elevated glucose in ED 209. Plan -Medical/surgical - SCDs + Heparin for VTE ppx. - DNR/DNI Admission and Anticipated Discharge Date Admission Date: September 11, 2022 Supervising Physician Co-Signing Physician Notes I personally examined the patient and verified all ponce points of history and exam, discussed case, and agree with decision making with Dr Alarcon Fairly confused. No complaints, HPI and review of systems essentially negative but of questionable veracity. Vitals noted, in general he is awake and alert confused but no distress. HEENT normocephalic atraumatic mucous membranes moist. Breathing unlabored no accessory muscle use good effort. Skin shows no rashes no pallor or icterus. Neuro without focal deficits. 1. Rhabdomyolysis. Mild even at worst s/p fall, unknown down time. CK downtrended. 2. KANDY. Multifactorial, but likely mostly pre-renal. (Particularly given that rhabdo was mild at worst) 3. Heart failure with reduced ejection fraction, CAD (hx of CABG). Continue ASA, Plavix, Imdur, nadolol, statin. Repeat Echo: EF 45-50%; regional wall motion abnormalities. 4. Dysphagia. Aspiration precautions, pureed thinned with liquid, thinned liquids. Ok to do pills with a carrier but alternate with sips of water to clear the pharynx. 5. Hypokalemia. Due to poor oral intake. Repleting as needed. 6. Fall. PT/OT. Plan for SNF at discharge. Stable for SNF when bed available 7. DM. insulins on hold, sugars still low - likely low reserve nutrition 8. COPD. continue Breo inhaler BID, albuterol PRN. Mucinex. Dispo: Medically stable. Stable for SNF transfer once bed available Subjective Patient seen at bedside this morning. No acute events reported overnight. Patient overall does not seem to be oriented to place or time. Much of his speech is noncoherent and asks questions repetitively. Reports that nothing hurts but was able to tell me this morning that he is not hungry and not eating very much. Otherwise no new complaints today. Review of Systems Review of Systems: All systems reviewed & are unremarkable except as noted in HPI & below Physical Exam Constitutional: + frail appearing, cooperative and comfortable Eyes: PERRL, conjunctivae normal, anicteric sclerae ENMT: Mouth: + dry oral mucous membranes Neck: trachea midline, no thyromegaly Respiratory: normal respiratory effort, lungs clear to auscultation Cardiovascular: Rate/Rhythm: regular rate and regular rhythm Extremities: no edema Gastrointestinal (Abdomen): Inspection/Auscultation: abdomen normal to inspection Percussion/Palpation: abdomen soft; abdomen nontender Skin: no rashes, warm and dry Results & Data Results & Data ([facility]) Vital Signs (Past 12 Hours) Vital Signs Temp Pulse Resp BP BP Pulse Ox O2 Del Method 09/19/22 16:20 36.6 C 96 H 22 148/92 H 93 Room Air 09/19/22 10:51 36.4 C L 97 H 16 151/84 H 93 Room Air 09/19/22 10:47 Room Air 09/19/22 07:32 36.5 C 91 H 17 145/90 H 90 Room Air
--- NOTE | 2022-09-19 19:30 | Billing Data ---
Date of Service September 19, 2022 Coding Level of Care Code 08710 Subseq Hosp Care Lvl 1
[2022-09-20] MEDS: guaiFENesin 200 MG TAB PO SCH ×4 (01:21→13:15)
[2022-09-20] MEDS: LACTATED RINGER'S 1,000 ML IV SCH (05:58)
[2022-09-20] MEDS: LEVOTHYROXINE SODIUM 100 MCG TABLET PO SCH (05:58)
[2022-09-20 06:39] LABS: Hemoglobin 12.9 g/dl (14.0-18.0); Mean Corpuscular Hemoglobin 33.1 pg (25.0-34.0); Mean Corpuscular Hgb Conc 33.9 g/dL (32.0-36.0); Mean Corpuscular Volume 97.4 fL (80.0-100.0); Mean Platelet Volume 11.8 fL (9.4-12.4); Platelet Count 164 K/uL (130-400); RDW Coefficient of Variation 16.1 % (11.5-14.5); RDW Standard Deviation 57.4 fL (36.4-46.3); White Blood Count 7.74 K/ul (4.8-10.8)
[2022-09-20 07:09] LABS: BUN Creatinine Ratio 9.9 (10-20); Calcium 7.1 mg/dl (8.5-10.1); Creatinine Clr Calc Pharmacy 18.1 ml/min; Est GFR (African American) 27.3 ml/min; Est GFR (Non-African American) 23.5 ml/min; Magnesium 1.9 mg/dl (1.7-2.4); Phosphorus 3.1 mg/dl (2.5-4.9); Potassium 3.9 mmol/L (3.5-5.1)
[2022-09-20] MEDS: MIRTAZAPINE TAB 15 MG TAB PO SCH (09:40)
[2022-09-20] MEDS: ASPIRIN 81 MG CHEW PO SCH (09:40)
[2022-09-20] MEDS: METOPROLOL TARTRATE 25 MG TAB PO SCH (09:41)
[2022-09-20] MEDS: CLOPIDOGREL BISULFATE 75 MG TAB PO SCH (09:41)
[2022-09-20] MEDS: ROSUVASTATIN CALCIUM 20 MG TAB PO SCH (09:41)
[2022-09-20] MEDS: HEPARIN SOD 5,000 UNIT/0.5 ML VIAL SQ SCH (09:41)
[2022-09-20] MEDS: FLUTICASONE/VILANTEROL 200/25MCG 14 PUFFS/INHALER INH SCH (09:41)
[2022-09-20] MEDS: ISOSORBIDE MONO EXTENDED REL 60 MG TABCR PO SCH (09:42)
[2022-09-20] MEDS: PANTOprazole 40 MG in SYRINGE 0 ML IV SCH (09:42)
--- NOTE | 2022-09-20 17:58 | Discharge Summary ---
Date of Service September 20, 2022 Admission HPI Per Admitting Provider Hal Dailey is an 86 y/o male with a PMH significant for CAD, COPD, hypothyroidism, GERD, and severe dementia who presents from home today after a fall. He reportedly fell this afternoon and was on the ground for several hours before his son was aware and able to call EMS. He initially refused transfer to hospital but EMS was summoned back after he complained to son of neck and abdominal pain. Patient lives alone and has caregiver services Monday, and every other Monday. He was last seen Monday afternoon, and son was the one who was visiting him today and found him on the ground, therefore the fall could have occurred at any point in last 24 hours. He is currently not complaining of any pain and is very thirsty and would like to drink something. He is a very poor historian, so majority of history is obtained from son at bedside. He has been declining for some time, sleeping majority of the day, has barely an appetite, is weak and dementia is progressed to the point that he cannot live alone, has not been taking medications. Family initially wanted him to be placed in a nursing home facility, however patient adamantly refused, so they have settled for home health 3 days/week. Patient continues to decline despite the services. Upon presentation to the ED, pt is mildly tachycardic, otherwise vital signs within normal limits and stable. Significant for potassium of 2.7, CK of 1300, creatinine 3.06, prior labs are from 2019 however cr was < 2 then. Also with AG 17, T bili 1.2, AST 60. Head CT and C-spine CT remarkable for acute injury. CXR unremarkable. CT A/P without evidence of acute traumatic injuries. There is mild gallbladder distention without pericholecystic stranding, as well as groundglass opacities within the lower lungs, other infectious or atelectatic. No evidence of bowel obstruction. Principal Diagnosis Fall/frailty Discharge Exam Constitutional + frail appearing, cooperative and comfortable Eyes PERRL, conjunctivae normal, anicteric sclerae ENMT Mouth: + dry oral mucous membranes Neck trachea midline, no thyromegaly Respiratory normal respiratory effort, lungs clear to auscultation Cardiovascular Rate/Rhythm: regular rate and regular rhythm Extremities: no edema Gastrointestinal (Abdomen) Inspection/Auscultation: abdomen normal to inspection Percussion/Palpation: abdomen soft; abdomen nontender Skin no rashes, warm and dry Discharge Data Allergies Allergy/AdvReac Type Severity Reaction Status Date / Time No Known Allergies Allergy Verified 09/11/22 19:37 Consultations 09/11/22 19:23 ED Decision to Admit Stat Ordered Studies 09/11/22 17:41 CT Abd and Pelvis [CT abd pelvis wo con] Stat CT cervical spine wo con Stat CT head/brain wo con Stat 09/11/22 19:21 US gallbladder Stat 09/12/22 13:30 Fluoro video [FL video swallow] Routine Hospital Course (1) Rhabdomyolysis: Rhabdomyolysis - Fall within 24 hours preceding admission. Unknown downtime, with CK 1300, Cr 3.06, K 2.7 - CK downtrended to 749 - Cr initially improved, stable at 2.22 2.43 today - Continue IVF LR resuscitation, rate currently at 80 cc/hr -Given history of HFrEF (echocardiogram this admission- EF 40%), monitor fluid status with cautious IVF -Case management searching for placement -Discharged to rehab facility today. (2) Acute renal failure: - Creatinine elevated at 3.06 on admission, likely due to severe dehydration 2/2 poor PO intake, rhabdomyolysis - IVF LR 80 cc/hr -Creatinine as above - Avoid nephrotoxins, renally dose medications as able - Unlikely pt can maintain oral hydration, will continue IVF for now and monitor fluid status (3) Moderate protein-calorie malnutrition: -Daily BMP, phosphorus, magnesium, stable (4) At risk for aspiration: - Speech consult and swallow study earlier in admission, recommendations below high risk aspiration IDDSI 4 pureed aspiration precautions, oral hygiene alternating solids and liquids, pureed diet consider palliative care as patients oral intake not able to meet nutritional needs -Pureed diet, aspiration precautions -Speech therapy re-evaluation 09/18 to clarify diet texture questions and whether medications still need to be crushed (5) Cough: -Previously productive cough with poor expulsion of mucus although coarse on lung exam -Incentive spirometry, flutter valve -Guaifenesin 200 mg q4h (6) Acute hypokalemia: - 2.7 on admission, suspect due to poor appetite given frail presentation and documented 20+ lb weight loss, dementia and issues taking meds at home/preparing meals. -Resolved on 09/17 at K 3.5 -Trend BMP (7) Fall: - Fall within 24 hours preceding admission, unknown how it occurred, CT imaging negative for trauma. - Suspect in setting of severe dementia, weakness, dehydration. - Hydrating as above for rhabdomyolysis, repleting electrolytes as needed - PT/OT ongoing- recommend inpatient rehab/SNF - Family and patient agreed to SNF PT, placement pending (8) Dementia: - Continue mirtazapine - patient had been living alone, concern for not being able to take medications regularly - Pursuing SNF placement (9) CAD (coronary artery disease): - History of CABG and stents. - Continue aspirin, Plavix, Imdur, nadolol, statin -09/17- Imdur 240 mg XL switched to 40 mg TID short-acting to be administered as crushed given aspiration risk - Nitroglycerin PRN chest pain (10) COPD (chronic obstructive pulmonary disease): - Continue home inhalers/formulary equivalent- Breo Ellipta, albuterol PRN - Saturating well on RA (11) Hypothyroidism: - Continue levothyroxine. - TSH last checked as outpatient in December, was 3210. TSH checked on admission, 7.5 with free T4 1.08 (12) Type 2 diabetes mellitus: - Documented history of DM, not on medication. A1c in Feb 5.9%, elevated glucose in ED 209. Plan -Discharged to rehab - DNR/DNI Total Time Total Time Spent Total Time Spent (In Minutes): 30 Discharge Plan Discharge Items Patient Disposition: Transfer [facility] Reason For Visit: RHABDO Discharge Diagnosis: Rhabdo, fall, frailty Activity: Per Instructions section Non-emergency contact: Primary Care Provider Call non-emergency contact if: you have any medication questions Follow-up/Referrals: Alondra Cummings PA-C [Primary Care Provider] - Diet: Regular Addtl Attending Provider Instructions: (1) Rhabdomyolysis: Plan: Rhabdomyolysis - Fall within 24 hours preceding admission. Unknown downtime, with CK 1300, Cr 3.06, K 2.7 - CK downtrended to 749 - Cr initially improved, stable at 2.5 to 2.22 today - Continue IVF LR resuscitation, rate currently at 80 cc/hr -Given history of HFrEF (echocardiogram this admission- EF 40%), monitor fluid status with cautious IVF -Case management searching for placement -Can be accepted on 09/20 if medically stable -Pt will require insurance authorization and COVID test prior to d/c on 09/20 (2) Acute renal failure: Plan: - Creatinine elevated at 3.06 on admission, likely due to severe dehydration 2/2 poor PO intake, rhabdomyolysis - IVF LR 80 cc/hr - Cr stable 2.5 to 2.22, resolved - Avoid nephrotoxins, renally dose medications as able - Unlikely pt can maintain oral hydration, will continue IVF for now and monitor fluid status (3) Moderate protein-calorie malnutrition: Plan: -Daily BMP, phosphorus, magnesium (4) At risk for aspiration: Plan: - Speech consult and swallow study earlier in admission, recommendations below high risk aspiration IDDSI 4 pureed aspiration precautions, oral hygiene alternating solids and liquids, pureed diet consider palliative care as patients oral intake not able to meet nutritional needs -Pureed diet, aspiration precautions -Speech therapy re-evaluation 09/18 to clarify diet texture questions and whether medications still need to be crushed (5) abnormal EKG Plan: -EKG suggestive of possible atrial fibrillation, however, due to frequent PACs and artifact, difficult to interpret. -No anticoagulation started due to concern of fall and age -Recommend outpatient heart monitor to evaluate for rhythm abnormalities. (6) Acute hypokalemia: Plan: - 2.7 on admission, suspect due to poor appetite given frail presentation and documented 20+ lb weight loss, dementia and issues taking meds at home/preparing meals. -Resolved on 09/17 at K 3.5 (7) Fall: Plan: - Fall within 24 hours preceding admission, unknown how it occurred, CT imaging negative for trauma. - Suspect in setting of severe dementia, weakness, dehydration. - Hydrating as above for rhabdomyolysis, repleting electrolytes as needed - PT/OT ongoing- recommend inpatient rehab/SNF - Family and patient agreed to acute rehab (8) Dementia: Plan: - Continue mirtazapine - patient had been living alone, concern for not being able to take medications regularly (9) CAD (coronary artery disease): Plan: - History of CABG and stents. - Continue aspirin, Plavix, Imdur, nadolol, statin -09/17- Imdur 240 mg XL switched to 40 mg TID short-acting to be administered as crushed given aspiration risk - Nitroglycerin PRN chest pain (10) COPD (chronic obstructive pulmonary disease): Plan: - Continue home inhalers/formulary equivalent- Breo Ellipta, albuterol PRN - Saturating well on RA (11) Hypothyroidism: Plan: - Continue levothyroxine. - TSH last checked as outpatient in December, was 3210. TSH checked on admission, 7.5 with free T4 1.08 (12) Type 2 diabetes mellitus: Plan: - Documented history of DM, not on medication. A1c in Feb 5.9%, elevated glucose in ED 209. Plan -Discharged to acute rehab - SCDs + Heparin for VTE ppx. - DNR/DNI Pending Studies at Discharge: No Stand-Alone Forms: My [facility] [place] Secure Skilled Items Patient informed of condition?: Yes DNR: Yes Discharge Level of Care: Acute rehab Communicable Disease: No Discharge Prognosis: Stable Lines: None Urinary Catheter: No Medications and DC Order Prescriptions: Continued albuterol sulfate 2.5 mg /3 mL (0.083 %) solution for nebulization 2.5 mg INH TID PRN (Reason: shortness of breath or wheezing) Qty: 75 3RF Rx Instructions: PER PT'S SON "NOT SURE HE USES". isosorbide mononitrate 120 mg tablet extended release 24 hr 240 mg PO DAILY Qty: 180 3RF clopidogrel [Plavix] 75 mg tablet 75 mg PO DAILY Qty: 90 3RF pantoprazole 40 mg tablet,delayed release (DR/EC) 40 mg PO DAILY Qty: 90 3RF mirtazapine 7.5 mg tablet 7.5 mg PO DAILY Qty: 90 3RF nadolol 20 mg tablet 20 mg PO DAILY Qty: 135 3RF rosuvastatin 40 mg tablet 40 mg PO DAILY Qty: 90 3RF levothyroxine 100 mcg tablet 100 mcg PO DAILY Qty: 90 3RF nitroglycerin 0.4 mg tablet, sublingual 0.4 mg SL Q5M PRN (Reason: chest pain) Qty: 25 5RF Rx Instructions: until response; do not exceed 3 doses per episode aspirin 81 mg tablet,delayed release (DR/EC) 81 mg PO DAILY Qty: 30 2RF Flovent HFA 110 mcg/actuation HFA aerosol inhaler 1 puffs INH BID Qty: 12 5RF Rx Instructions: PER PT'S SON "NOT SURE HE USES THIS". Discharge Orders: Discharge Order (Routine); Ordered 09/20/22 Ordered By: Claude Alarcon Admission Data Admit Date/Time: 09/11/22 20:59 Attending Provider: Yony Cheung Admit Provider: Panfilo Harris Primary Care Provider: Alondra Cummings Other Providers: Panfilo Harris ; Asmita Hurley at [place] Other Interventions: Discharge Summary Assessment (RN) Last Done: 09/20/22 12:08 Supervising Physician Co-Signing Physician Notes I personally examined the patient and verified all ponce points of history and exam, discussed case, and agree with decision making with Dr Alarcon sleeping comfortably, for SNF Vitals noted, in general he is resting comfortably no distress. HEENT normoceph alic atraumatic mucous membranes moist. Breathing unlabored no accessory muscle use good effort. Skin shows no rashes no pallor or icterus. Neuro without focal deficits. 1.Rhabdomyolysis. Mild even at worst s/p fall, unknown down time. CK downtrended. 2.KANDY. Multifactorial, but likely mostly pre-renal. (Particularly given that rhabdo was mild at worst) 3.Heart failure with reduced ejection fraction, CAD (hx of CABG). Continue ASA, Plavix, Imdur, nadolol, statin. Repeat Echo: EF 45-50%; regional wall motion abnormalities. 4.Dysphagia. Aspiration precautions, pureed thinned with liquid, thinned liquids. Ok to do pills with a carrier but alternate with sips of water to clear the pharynx. 5.Hypokalemia. Due to poor oral intake. Repleting as needed. f/u as outpt periodically 6.Fall. PT/OT. Plan for SNF at discharge. Stable for SNF bed today 7.DM. insulins on hold, sugars still low - likely low reserve nutrition 8. COPD. continue Breo inhaler BID, albuterol PRN. Mucinex. Dispo: Medically stable. Stable for SNF transfer today
--- NOTE | 2022-09-20 19:28 | Billing Data ---
Date of Service September 20, 2022 Coding Level of Care Code D/C DAY MANAGEMENT <30 MINS
--- NOTE | 2022-09-28 08:25 | Coding Query ---
CODING QUERY To promote full compliance with coding requirements relating to patient care, provider participation is requested in all cases of l d rn uncertainty. Please assist us with the question(s) below: Coding Question(s): Patient admitted s/p fall with rhabdomyolysis, severe dehydration. 09/16 hospitalist note documented creatinine rise 3.06 ... 2 yrs ago creatinine 1.29 , concerning for ATN. KANDY documented on Discharge Summary. Seeking to determine if ATN was diagnosed/treated during this admission. Please check appropriate phrase. Thank you. DARYL Quinones [facility] Physician's Response(s): Patient was diagnosed/treated for ATN during this admission x____ Patient was not diagnosed/treated for ATN during this admission Cannot clinically correlate if ATN was diagnosed/treated during this admission Other: Please document: renal failure deemed likely prerenal and then possibly some degree from rhabdomyolysis Principal Diagnosis: "that condition established after study, to be chiefly responsible for occasioning the admission of the patient to the hospital for care." Co-Existing Principal Diagnosis: "when two or more diagnoses equally meet the criteria for principal diagnosis as determined by the circumstances of admission, diagnostic work up, and/or therapy provided, and the Alphabetic Index, Tabular List, or another coding guideline does not provide sequencing direction, any one of the diagnoses may be sequenced first." "When the physician has documented what appears to be a current diagnosis in the body of the record, but has not included the diagnosis in the final diagnostic statement, the physician should be asked whether the diagnosis should be added." (Source Coding [facility] 2 QTR90. p3-4) [place]
== END 2022-09-20 17:51 | DRG 558 ==
LOC: ED 16:47 → 4W 20:59 → SUATTDRO 20:59 → 4W 23:17